=== PATIENT | male | born 1940 | race Caucasian/White ===

== ENCOUNTER 2023-10-14 08:26 | Inpatient (IN) ==
--- NOTE | 2023-10-03 12:04 | PAT Medication Instructions ---
Medication Instructions Date of Service October 03, 2023 Home Medications Medication Instructions Recorded bacitracin 500 unit/gram topical 1 applic topical BID #14 grams 07/26/20 ointment allopurinol 100 mg tablet 100 mg PO BID #180 tabs 01/18/23 losartan 100 mg tablet 100 mg PO QAM #90 tabs 01/18/23 meloxicam 15 mg tablet 15 mg PO DAILY PRN pain #90 tabs 01/18/23 fluticasone 100 mcg-salmeterol 50 1 ea inhalation BID #180 ea 04/24/23 mcg/dose blistr powdr for inhalation (Advair Diskus) gabapentin 100 mg capsule 100 mg PO TID #90 caps 06/17/23 amlodipine 5 mg tablet 5 mg PO DAILY #30 tabs 09/19/23 clopidogrel 75 mg tablet 75 mg PO DAILY #30 tabs 09/19/23 rosuvastatin 5 mg tablet 5 mg PO DAILY #30 tabs 09/19/23 aspirin 81 mg tablet,delayed release (Adult Aspirin Regimen) 81 mg PO QAM epinephrine 0.3 mg/0.3 mL injection, auto-injector 0.3 mg IM Q10M PRN albuterol sulfate 90 mcg/actuation aerosol inhaler 1 - 2 inh inhalation UD PRN vit C 250 mg-vit E 90 mg-zinc 40 mg-copper 1 [id number]-zkxbkn capsule (PreserVision AREDS-2) 2 tab PO QAM bacitracin 500 unit/gram topical ointment 1 applic topical BID allopurinol 100 mg tablet 100 mg PO BID losartan 100 mg tablet 100 mg PO QAM meloxicam 15 mg tablet 15 mg PO DAILY PRN fluticasone 100 mcg-salmeterol 50 mcg/dose blistr powdr for inhalation (Advair Diskus) 1 ea inhalation BID gabapentin 100 mg capsule 100 mg PO TID amlodipine 5 mg tablet 5 mg PO DAILY clopidogrel 75 mg tablet 75 mg PO DAILY rosuvastatin 5 mg tablet 5 mg PO DAILY Continue as directed rosuvastatin 5 mg tablet 5 mg PO DAILY amlodipine 5 mg tablet 5 mg PO DAILY epinephrine 0.3 mg/0.3 mL injection, auto-injector 0.3 mg IM Q10M PRN(if needed) albuterol sulfate 90 mcg/actuation aerosol inhaler 1 - 2 inh inhalation UD PRN (use if needed; please bring with you to hospital day of surgery if possible) ASK your surgeon for instructions meloxicam 15 mg tablet 15 mg PO DAILY PRN ASK your prescriber and surgeon aspirin 81 mg tablet,delayed release (Adult Aspirin Regimen) 81 mg PO QAM clopidogrel 75 mg tablet 75 mg PO DAILY STOP taking 2 weeks before surgery (or as soon as possible if surgery is within 2 weeks) vit C 250 mg-vit E 90 mg-zinc 40 mg-copper 1 [id number]-[id number] capsule (PreserVision AREDS-2) 2 tab PO QAM STOP taking 24 hours before surgery bacitracin 500 unit/gram topical ointment 1 applic topical BID DO NOT take the morning of surgery losartan 100 mg tablet 100 mg PO QAM Take morning of surgery With a small sip of water, OTHERWISE NOTHING TO EAT OR DRINK AFTER MIDNIGHT: allopurinol 100 mg tablet 100 mg PO BID fluticasone 100 mcg-salmeterol 50 mcg/dose blistr powdr for inhalation (Advair Diskus) 1 ea inhalation BID gabapentin 100 mg capsule 100 mg PO TID Take evening before surgery allopurinol 100 mg tablet 100 mg PO BID fluticasone 100 mcg-salmeterol 50 mcg/dose blistr powdr for inhalation (Advair Diskus) 1 ea inhalation BID gabapentin 100 mg capsule 100 mg PO TID Other Notes If you have any questions please call us at [phone] or [phone] or [phone] or [phone]
--- NOTE | 2023-10-09 11:54 | Anesthesiology Consultation ---
Date of Service October 09, 2023 Assessment & Plan (1) Encounter for pre-operative examination: Creatinine bump from 1.3, case discussed with Dr. Medeiros who advised patient is acceptable to proceed, to anesthesiologist discretion am DOS if additional testing is needed. Chart Review Chart Review: Acceptable Risk for Surgery and Patient seen in Pre Admission Testing Teaching & Discussion Pre-Anesthesia Teaching/Discussion Notes: Instructed NPO after midnight before surgery, except medications with 15 cc of water. Medication instructions provided according to the PAT guidelines. History Surgery Operation Date: 10/14/23 10:20 Proposed Procedures p Right Transcarotid Artery Revascularization - Neeraj Kinney MD Height/Weight Height: 5 ft 9 in Weight: 77.4 kg Allergies Allergy/AdvReac Type Severity Reaction Status Date / Time venom-honey bee Allergy Severe passed out Verified 10/14/23 08:50 No Known Drug Allergies Allergy Verified 10/14/23 08:50 Medications Home Medications Medication Instructions Recorded Confirmed Last Taken aspirin 81 mg tablet,delayed 81 mg PO QAM 06/11/19 10/14/23 10/13/23 08:00 release (Adult Aspirin Regimen) epinephrine 0.3 mg/0.3 mL 0.3 mg IM Q10M PRN BEE STINGS 06/11/19 10/14/23 Unknown injection, auto-injector albuterol sulfate 90 mcg/actuation 1 - 2 inh inhalation UD PRN ASTHMA 07/19/20 10/14/23 08/30/20 aerosol inhaler vit C 250 mg-vit E 90 mg-zinc 40 2 tab PO QAM 07/19/20 10/14/23 09/30/23 mg-copper 1 [id number]-gawllz capsule (PreserVision AREDS-2) allopurinol 100 mg tablet 100 mg PO BID #180 tabs 01/18/23 10/14/23 10/14/23 06:30 losartan 100 mg tablet 100 mg PO QAM #90 tabs 01/18/23 10/14/23 10/13/23 08:00 meloxicam 15 mg tablet 15 mg PO DAILY PRN pain #90 tabs 01/18/23 10/14/23 10/13/23 08:00 fluticasone 100 mcg-salmeterol 50 1 ea inhalation BID #180 ea 04/24/23 10/14/23 Unknown mcg/dose blistr powdr for inhalation (Advair Diskus) gabapentin 100 mg capsule 100 mg PO TID #90 caps 06/17/23 10/14/23 10/14/23 06:30 amlodipine 5 mg tablet 5 mg PO DAILY #30 tabs 09/19/23 10/14/23 10/13/23 08:00 clopidogrel 75 mg tablet 75 mg PO DAILY #30 tabs 09/19/23 10/14/23 10/13/23 08:00 rosuvastatin 5 mg tablet 5 mg PO DAILY #30 tabs 09/19/23 10/14/23 10/13/23 08:00 Active Medications Generic Name Dose Route Start Last Admin Trade Name Freq PRN Reason Stop Dose Admin Sodium Chloride 1,000 mls @ 50 mls/hr 10/14/23 06:00 10/14/23 08:49 Nss IV 10/15/23 01:59 50 mls/hr .Q20H VANGIE Administration Past Medical History Medical History Arthritis of knee, 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 Patient denies h/o seizures, heart attack, heart failure, DM, blood clots/DVTs or blood transfusions. Exercise / Class Metabolic Activity II 4-5 Yardwork/Stairs/Walk up hill (denies chest discomfort or shortness of breath with 1 FOS) Past Family History Family History Sister Diabetes Breast cancer Lung cancer Father Coronary heart disease Alcohol abuse Stroke Mother Alcohol abuse Denies family history of Ovarian cancer Prostate cancer Myocardial infarction Colorectal cancer Past Surgical History Surgical History S/P epidural steroid injection History of bilateral cataract extraction History of colonoscopy History of appendectomy Past Anesthesia History No Hx of Anesthesia Complications and Other (sister with Versed reaction during cataract procedure: nausea, dizziness, gait instability, generalized weakness (patient contacted his sister during PAT appointment for this information)) History of PONV No Hx of PONV and No Hx of Motion Sickness Social History Smoking Status: Former smoker Do You Dip or Chew Tobacco: No Smoking End Date: quit 1966 Hx Alcohol Use: Yes Alcohol type: beer alcohol intake frequency: a few times a month Hx Substance Use: No substance use type: does not use Review of Systems Snoring, denies witnessed apneas. Patient denies chest pain, shortness of breath, dyspnea on exertion, reflux, fever, chills, cough, wheezing, or palpitations. Physical Exam Vital Signs Last Vital Signs Temp 36.7 C 10/14/23 08:45 Pulse 80 10/14/23 08:45 Resp 18 10/14/23 08:45 BP 174/78 H 10/14/23 08:45 Pulse Ox 97 10/14/23 08:45 O2 Del Method Room Air 10/14/23 08:45 Vitals BP 136/77 P 57 TEMP 97.7 SP02 96% on RA RESP 18 Physical Patient resting comfortably in chair in no acute distress, alert and oriented, responding appropriately throughout visit Full cervical extension range of motion without pain TMD < 3 finger breadths Mallampati Score 2 Dentition: one crown, denies chipped or loose teeth, caps, implants or bridges Lungs: normal respiratory effort. Good air movement, clear throughout to auscultation, no adventitious breath sounds Cardiac: regular rate and rhythm, no murmurs noted Carotid arteries: negative bruit bilat Lab Results Anesthesia Preop Results Results Anesthesia Widget: 2 WBC 9.80 K/ul (4.8-10.8) 10/09/23 Hgb 11.4 g/dl (14.0-18.0) L 10/09/23 Hct 33.6 % (42.0-52.0) L 10/09/23 Plt 271 K/uL (130-400) 10/09/23 Na 139 mmol/L (136-145) 10/14/23 K 4.4 mmol/L (3.5-5.1) 10/14/23 Cl 111 mmol/L (98-107) H 10/14/23 CO2 22 mmol/L (21-32) 10/14/23 BUN 31 mg/dl (6-23) H 10/14/23 Creat 1.44 mg/dl (0.6-1.4) H 10/14/23 Glucose Level 110 mg/dl (70-99(Fasting)) H 10/14/23 PT 10.6 Seconds (9.0-12.0) 10/09/23 PTT 33 Seconds (21-31) H 10/09/23 INR 1.0 (0.9-1.1) 10/09/23 HA1c 6.2 % (4.5-5.6) H 09/24/23 Blood Type O Positive 10/14/23 Antibody Screen NEGATIVE 10/14/23 Testing Laboratory Results 10/14/23 08:59 Blood Type O Positive 10/14/23 08:59 Antibody Screen NEGATIVE 10/14/23 08:59 Electrocardiogram Date: 08/26/23 Sinus rhythm with 1st degree AV block, rate 68 bpm Chest X-Ray Date: 08/26/23 No acute chest disease. Other Testing MRI brain 10/02/23 Numerous foci of increased signal intensity are seen in the white matter in the cerebral hemispheres on the FLAIR images along with a small focus of increased signal intensity peripherally in the right basal ganglia probably due to chronic small vessel ischemia. A small area of increased signal intensity is seen peripherally in the right occipital lobe posteriorly on the FLAIR images probably due to a small area of chronic cortical infarction. A 5 mm focus of increased signal intensity is seen in the right basal ganglia on the T1 weighted images which dos not appear to represent calcification based on an outside CT angiogram. Diabetic striatopathy could have this appearance however this tends to be more extensive. A follow-up examination might provide additional information. Ventricular system and cortical sulci are prominent consistent with moderate atrophy No acute intracranial pathology is demonstrated Head and neck CTA 09/20/23 No evidence for occlusion or dissection within the bilateral carotid or vertebral arteries. Approximately 70% stenosis within the proximal left internal carotid artery and 80% stenosis within the proximal right internal carotid artery due to the atherosclerotic plaque. No acute intracranial findings. No central vessel occlusion. No intracranial aneurysm. Mild multifocal stenoses within the intracranial vessels. Right maxillary sinus mucosal thickening with secretions.
[~2023-10-14 08:26] MED LIST: ATROPINE SULFATE 0.1 MG/ML 10ML SYR IV PRN; DEXAMETHASONE SOD INJ 4 MG/ML VIAL ONE; HYDROmorphone INJ 1 MG/ML SYRINGE IV PRN; LIDOCAINE 2% 2 ML VIAL/AMP(20MG/ML) INFIL ONE; ONDANSETRON INJ 2 MG/ML 2 ML VIAL IV PRN; ONDANSETRON INJ 2 MG/ML 2 ML VIAL ONE; PROPOFOL IV EMULSION 10 MG/ML 20 ML VIAL IV ONE; ePHEDrine sulfate 50 MG/ML AMP IV PRN; fentaNYL citrate PF 100 MCG/2 ML VIAL IV PRN; fentaNYL citrate PF 100 MCG/2 ML VIAL ONE
[2023-10-14] MEDS: SODIUM CHLORIDE 0.9% 1,000 ML IV SCH (08:49)
--- NOTE | 2023-10-14 09:24 | History & Physical Report ---
Date of Service October 14, 2023 History of Present Illness Primary Care Provider: Jayson Valenzuela MD Name: JASE CORDOVA Patient Number: [id number] : 1940 Date of Service: 10/01/2023 Chief Complaint: _Appointment to discuss carotid stenosis HPI: _Mr. Cordova is an elderly male who presents to Dr. Kinney vascular surgery clinic today for an appointment to discuss recent findings of bilateral carotid stenosis. Patient states that he developed right eye symptoms at the end of August, a few days prior to his scheduled back surgery. He states that he was at home doing his normal activities, and a black curtain came down over the top half of his vision, lasting about 30 minutes before it resolved completely. He has not had similar symptoms prior to or since that time. He has had no other associated symptoms or problems, including unilateral extremity weakness numbness or tingling, difficulty speaking or swallowing, facial droop, sudden onset confusion, headache or syncope. He advised his family doctor of the symptoms, who sent him for a carotid ultrasound, and then sent him for a CTA of the neck. In the meantime his spinal surgery was canceled due to his symptoms. He presents today to discuss surgical options. He denies chest pain, shortness of breath, Kyler pain, nausea, vomiting, rest pain, claudication, nonhealing wounds or ulcers, other complaints. Review of the CTA of the neck performed at [facility] a few weeks ago demonstrates over 80% stenosis of his right ICA, and about 70 presents stenosis of his left ICA. Current Home Meds: (Last Updated 09/30 16:25) EPINEPHrine (EpiPen 2-Albino 0.3 mg injectable kit) 0.3 mg IM ONCE PRN: as needed for anaphylaxis albuterol (albuterol CFC free 90 mcg/inh MDI) 2 puff inhaled qid PRN: as needed for wheezing allopurinol 100 mg PO bid cholecalciferol (Vitamin D3) 25 mcg PO Daily clopidogrel (clopidogrel 75 mg oral tablet) 75 mg PO Daily gabapentin (gabapentin 100 mg oral capsule) TAKE ONE CAPSULE BY MOUTH THREE TIMES A DAY losartan 100 mg PO Daily rosuvastatin (rosuvastatin 5 mg oral tablet) TAKE ONE TABLET BY MOUTH EVERY DAY Allergies and Sensitivities: Bee stings(syncope) Bee stings(anaphylactic) Past Medical History: Problems: Bilateral carotid artery stenosis Peripheral arterial disease (atherosclerosis) 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 No Orthostatic Data Available Height and Weight: Last Updated 02/13/23 09:44 Date BMI Wt(kg) Wt(lb) Method Ht(cm) (ft-in) Method 02/13/23 76.1 167 Standing Scale 09/28/21 79 174 Standing Scale Heights and Weights are the last 3 documented. Physical Exam Constitutional: In general patient is a healthy appearing for age well-nourished well-developed elderly male no distress. He is alert and oriented without any focal deficits. His head is normocephalic and atraumatic. His trachea is midline. His carotids do not demonstrate a bruit. His heart is regular, his lungs are decreased but clear. His abdomen is soft nontender with active bowel sounds in all 4 quadrants. Brachial and radial pulses are +2, femoral pulses are +2, lower extremities the pulses are +1. He has brisk capillary refill and no sign of distal ischemia. ASSESSMENT: _ PLAN: _ 1 ) _symptomatic right ICA stenosis Patient does have bilateral carotid stenosis, however, his right eye amaurosis symptoms are likely related to his right ICA stenosis. Due to his symptoms, we recommend that he undergo surgical intervention. After review of his CTA, the options of carotid endarterectomy versus transcarotid artery revascularization were both discussed with the patient, including risks, benefits, alternatives, and description of the procedure. Patient elects to proceed with a right TCAR procedure. The procedure risks benefits and alternatives were discussed at further length with the patient by myself at Dr. Kinney's request. He expresses understanding and agreement to proceed. This will be scheduled in the next few weeks at the patient's convenience. He had been started on Plavix by his primary care physician, and has been on rosuvastatin as well. We will add 81 mg aspirin to this regimen for the required DAPT in order for him to undergo his TCAR. He will have platelet function testing, and we will send him for an echocardiogram. He is advised to call any other questions or concerns. He is agreeable to this plan. Thank you for letting us participate in the care of this patient. I have personally spent_39__ minutes performing [id number] and cot-eefa-mu-face activities on this date of service.Time does not include separately reported services. Activities Include: _x_ review of the medical record _x_ obtaining a history x__ physical exam/evaluation x__ review labs x__ review radiology reports _x_ counseling/educating patient/family/caregiver __ discussion/referral to other healthcare professional x__ documenting care in the medical record __ independent interpretation of results x__ communication of results to patient/family/caregiver _x_ coordination of care Signature Line Electronic Signature on File CC: Jayson Valenzuela MD [facility] [address] [address] * CC: Kassandra Simpson PA-C [facility] [address] [facility] [address] * Electronically Reviewed/Signed by: Concepción Harman PA-C Author Signature Dt/Tm:10/03/2023 10:45 AM [facility] [place] [address], [address] [place] [address] LM Result Type: HVI Outpt Note Date of Service: October 03, 2023 10:39 EDT Authorization Status: Final Author or Import Date: EVERETT Harman Lynn on October 03, 2023 10:45 EDT Verified By: EVERETT Harman Lynn on October 03, 2023 10:45 EDT Encounter info: [id number], [place] [id number], Clinic, 10/01/2023 - 10/01/2023 Allergies Allergy/AdvReac Type Severity Reaction Status Date / Time venom-honey bee Allergy Severe passed out Verified 10/14/23 08:50 No Known Drug Allergies Allergy Verified 10/14/23 08:50 Home Medications Medication Instructions Recorded Confirmed Type aspirin 81 mg tablet,delayed 81 mg PO QAM 06/11/19 10/14/23 History release (Adult Aspirin Regimen) epinephrine 0.3 mg/0.3 mL 0.3 mg IM Q10M PRN BEE STINGS 06/11/19 10/14/23 History injection, auto-injector albuterol sulfate 90 mcg/actuation 1 - 2 inh inhalation UD PRN ASTHMA 07/19/20 10/14/23 History aerosol inhaler vit C 250 mg-vit E 90 mg-zinc 40 2 tab PO QAM 07/19/20 10/14/23 History mg-copper 1 gs-eglduu-eytxuq capsule (PreserVision AREDS-2) allopurinol 100 mg tablet 100 mg PO BID #180 tabs 01/18/23 10/14/23 Rx losartan 100 mg tablet 100 mg PO QAM #90 tabs 01/18/23 10/14/23 Rx meloxicam 15 mg tablet 15 mg PO DAILY PRN pain #90 tabs 01/18/23 10/14/23 Rx fluticasone 100 mcg-salmeterol 50 1 ea inhalation BID #180 ea 04/24/23 10/14/23 Rx mcg/dose blistr powdr for inhalation (Advair Diskus) gabapentin 100 mg capsule 100 mg PO TID #90 caps 06/17/23 10/14/23 Rx amlodipine 5 mg tablet 5 mg PO DAILY #30 tabs 09/19/23 10/14/23 Rx clopidogrel 75 mg tablet 75 mg PO DAILY #30 tabs 09/19/23 10/14/23 Rx rosuvastatin 5 mg tablet 5 mg PO DAILY #30 tabs 09/19/23 10/14/23 Rx Past Med/Surg History Medical History Arthritis of knee, 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 Surgical History S/P epidural steroid injection History of bilateral cataract extraction History of colonoscopy History of appendectomy Family History Sister Diabetes Breast cancer Lung cancer Father Coronary heart disease Alcohol abuse Stroke Mother Alcohol abuse Denies family history of Ovarian cancer Prostate cancer Myocardial infarction Colorectal cancer Social History Smoking Status: Former smoker Tobacco Type: Cigarettes Age Started Using Tobacco: 18; Age Quit Using Tobacco: 25; packs per day: 1; Smoking End Date: quit 1966; Second Hand Exposure: No; Do You Dip or Chew Tobacco: No; Tobacco Cessation Education Requested by Patient: No Hx Alcohol Use: Yes Alcohol type: beer Hx Substance Use: No Preferred Language: Bermudian Communication Ability: Effective Medical Records Coordinator Required: No Beliefs That Will Affect Care: None marital status: Current Living Situation: Family Current Living Situation Comment: [facility] current occupational status: retired Other Information That Helps Us Care for You: No Feels Safe at Home: Yes Safety Concerns: Feels Safe At This Time Childhood Exposure to Second-Hand Smoke: Yes caffeine: Yes (soda) Dental Care, Regularly: Yes Physical Activity Frequency: Does not Exercise Seatbelt Use: always Sunscreen Use: No Assistive Devices: Glasses Review of Systems All systems reviewed & are unremarkable except as noted in HPI & below Results & Data Vital Signs (Past 12 Hours) Vital Signs Temp Pulse Resp BP BP Pulse Ox O2 Del Method 10/14/23 08:45 36.7 C 80 18 150/99 H 174/78 H 97 Room Air
--- NOTE | 2023-10-14 09:26 | History & Physical Bridge Note ---
Date of Service October 14, 2023 History & Physical Bridge Note I have examined the patient, reviewed the History & Physical and in the interval since the performance of the History & Physical I have noted the following changes of clinical significance: no changes noted
[2023-10-14 09:29] LABS: BUN Creatinine Ratio 21.5 (10-20); Calcium 8.8 mg/dl (8.6-10.3); Creatinine Clr Calc Pharmacy 38.2 ml/min; Est GFR (African American) 51.3 ml/min; Est GFR (Non-African American) 44.3 ml/min; Potassium 4.4 mmol/L (3.5-5.1)
[2023-10-14] MEDS: ROSUVASTATIN CALCIUM 5 MG TAB PO ONE (09:30)
[2023-10-14] MEDS: CLOPIDOGREL BISULFATE 75 MG TAB PO ONE (09:30)
[2023-10-14] MEDS: amLODIPine BESYLATE 5 MG TAB PO ONE (09:30)
[2023-10-14] MEDS: ASPIRIN 81 MG ECTAB PO ONE (09:30)
[2023-10-14] MEDS: CEFAZOLIN 2,000 MG/15 ML SYR IV SCH (10:50)
[2023-10-14] MEDS ORDERED: HEPARIN SOD (PORCINE) 1000 UNIT/ML ONE (11:17)
[2023-10-14] MEDS ORDERED: PHENYLEPHRINE 100MCG/ML 10ML SYR IV ONE (11:17)
[2023-10-14] MEDS ORDERED: ROCURONIUM BROMIDE 10 MG/ML 5 ML VIAL IV ONE (11:17)
[2023-10-14] MEDS ORDERED: PHENYLEPHRINE HCL 25 MG/250 ML NSS IV ONE (11:17)
[2023-10-14] MEDS ORDERED: GLYCOPYRROLATE 0.2 MG/ML VIAL ONE (11:29)
[2023-10-14] MEDS ORDERED: SUGAMMADEX SODIUM 200 MG/2 ML VIAL IV ONE (11:30)
[2023-10-14] MEDS: LIDOCAINE 1% LOCAL 20 ML VIAL ONE (11:42)
[2023-10-14] MEDS: GELATIN SPONGE SZ 100 ONE (11:42)
[2023-10-14] MEDS: THROMBIN FOR SOLN 20000 UNIT KIT ONE (11:42)
[2023-10-14] MEDS ORDERED: PROTAMINE SULFATE 10 MG/ML 5 ML VIAL IV ONE (11:52)
[2023-10-14] MEDS: VISIPAQUE IV ONE (11:56)
--- NOTE | 2023-10-14 12:05 | Post Operative Brief Note ---
Immediate Post Op Note v1 Date of Surgery October 14, 2023 Pre & Post Diagnosis Operation Date: 10/14/23 10:20 Pre-Op Diagnosis: Right Carotid Artery Stenosis Post-Op Diagnosis: Right Carotid Artery Stenosis I identified the patient and participated in the time-out.: Yes Procedure Operation Date: 10/14/23 10:20 Actual Procedures p Right Transcarotid Artery Revascularization, ultrasound localization of right common femoral vein (Right) - Neeraj Kinney MD Surgeon Neeraj Kinney MD Log Marker MD Tea MajanoMinarchkristian,PAC Estimated Blood Loss 20 Findings Consistent with Post-Op Diagnosis Anesthesia Type General Complications none Disposition Accompanied Patient To Recovery: No Disposition: Recovery Room
[2023-10-14] MEDS: BUPIVACAINE/EPINEPHRINE 0.5% MPF 1:200,000 30 ML VIAL ONE (12:06)
[2023-10-14] MEDS: ceFAZolin 330 MG/ML 1 GM VIAL ONE (12:07)
--- NOTE | 2023-10-14 12:12 | Operative Report ---
Post Operative Report Pre & Post Diagnosis Operation Date: 10/14/23 10:20 Pre-Op Diagnosis: Right Carotid Artery Stenosis Post-Op Diagnosis: Right Carotid Artery Stenosis I identified the patient and participated in the time-out.: Yes Procedure Operation Date: 10/14/23 10:20 Actual Procedures p Right Transcarotid Artery Revascularization, ultrasound, right common femoral vein (Right) - Neeraj Kinney MD Surgeon Neeraj Kinney MD Staff Development Coordinator Rn Ronald Navarro MD; Concepción Harman PA-C Estimated Blood Loss 20 Findings Consistent with Post-Op Diagnosis Severe stenosis of the right internal carotid artery that was resolved with stent placement. No dissection or flow limiting stenosis identified on completion angiogram Specimens None Anesthesia Type General Complications None Disposition Accompanied Patient To Recovery: No Indications 83 year old gentleman with symptoms of right sided amaurosis fugax and severe stenosis of the right internal carotid artery consistent with right sided severe symptomatic carotid artery stenosis Description of Procedure The patient was taken to the operating room and placed in supine position. After general anesthesia was accomplished the right-side of the neck and bilateral groin were prepped and draped in a sterile manner. A transverse 4cm incision was made on the right neck over the sternal and clavicular heads of the sternocleidomastoid muscle and below the omohyoid. Subcutaneous tissue and platysma were divided using electrocautery. Dissection using Metzenbaum scissors proceeded and the carotid sheath was identified medially. It was divided longitudinally. The internal jugular was retracted medially. The common carotid artery was identified with the Vagus nerve posterolateral. The common carotid artery was mobilized with Metzenbaum scissors and umbilical tape was placed around the artery. Once sufficient length, about 2cm of the common carotid were mobilized, a 5-0 Proline suture was used to place a U-Stitch in the anterior surface of the right common carotid artery. Attention was turned to the left common femoral vein. Access was attempted but no back bleeding was obtained. Attention was turned to the right common femoral vein which was then accessed under ultrasound guidance using a micropuncture needle. This was exchanged for the Venous Return Sheath over the provided 0.035'' wire. Blood was aspirated from the flow line followed by flushing of the venous sheath with heparinized saline. The sheath was sutured in place to the patient's skin. 7000U of heparin was then given to obtain an ACT > 250. A micropuncture needle was used to access the common carotid artery in the center of the U-stitch. The micropuncture wire was then advance 4cm into the common carotid artery and the micropuncture needle was removed. The micropuncture sheath was advanced 2-3cm into the common carotid artery and the wire and dilator were removed. A cerebral angiogram was taken. The micropuncture wire and dilator were re-inserted into the sheath and the external carotid artery was engaged with the wire without engaging the internal carotid artery. The sheath was advanced over the wire into the external carotid artery. Next a 0.035'' J guidewire was was inserted and advanced into the external carotid artery through the sheath. The micropuncture sheath was exchanged over the guidewire and the Transcarotid Arterial Sheath was advanced to the 2.5cm marker in correct coaxial orientation and the J wire and dilator were removed. The Sheath was sutured to the patient and then flushed with heparinized saline. No air bubbles visualized during flushing The flow controller was connected to the Transcarotid arterial sheath. Arterial blood was allowed to passively fill the device completely to which it was then connected to the Venous return sheath. The flow controller was set to high. The common carotid artery proximal to the access point was then clamped with an a ngled DeBakey and flow reversal was confirmed. A right carotid angiogram was then performed and the right internal carotid artery lesion was marked. HR and systolic blood pressures were adequate with HR of about 80 and blood pressure between 140 and 160 systolic. The lesion was then crossed using a 0.014'' guidewire. The lesion was then pre-dilated using a 5mm x 35mm balloon. This balloon was then exchanged and primary stenting was performed with the Transcarotid stent, appropriately sized (7-9mm, 40mm in length). Post dilation was performed with a 5.5x20mm balloon to 14 ATMs. Completion carotid angiography demonstrated patent stent with <50% residual stenosis Antegrade flow was restored following release of the common carotid artery clamp. The arterial sheath was removed and U-Stitch tied. The femoral venous sheath was removed and pressure held for 5 min with adequate hemostasis. Adequate hemostasis was seen of the carotid artery. The wound was inspected and adequate hemostasis was obtained. It was then closed with a running 3-0 Vicryl suture for the platysmal layer and a 4-0 subcuticular Vicryl suture for the skin edges. Dermabond was used for dressing. Patient awoke from anesthesia without difficulties. There was a small hematoma noted in the left groin, non- pulsatile. Was neurovascularly intact, moving all extremities and following commands at case completion. The patient left the operating room in satisfactory condition and tolerated the procedure well A total of 46mGy, 5.4 min of fluoroscopy time, and 20cc of contrast were used during the procedure. Dr. Kinney was present and scrubbed for the entire procedure. I attest to the content of the Intraoperative Record and any orders documented therein. Any exceptions are noted below. Supervising Physician Co-Signing Physician Notes Neeraj Kinney MD
[2023-10-14] MEDS: HEPARIN (PORCINE) 1000 UNIT/ML 10 ML (CATH LAB USE ONLY) ONE (12:13)
[2023-10-14] MEDS: PHENYLEPHRINE/NSS 25 MG/250 ML BAG IV PRN (13:03)
--- NOTE | 2023-10-14 14:41 | Anesthesiology Progress Note ---
Date of Service October 14, 2023 Anesthesia Post Procedure Vital Signs Vital Signs: Temp Pulse Pulse Resp BP BP BP 10/14/23 13:50 63 16 121/46 L 10/14/23 13:40 36.4 C L 61 16 119/44 L 10/14/23 13:30 61 16 111/41 L 10/14/23 13:20 62 16 109/44 L 10/14/23 13:10 70 16 118/44 L 10/14/23 13:00 65 18 114/40 L 10/14/23 12:50 74 16 105/40 L 10/14/23 12:40 72 16 102/42 L 10/14/23 12:30 74 16 102/40 L 10/14/23 12:23 36.2 C L 79 16 136/62 10/14/23 08:45 36.7 C 80 18 150/99 H 174/78 H Pulse Ox O2 Del Method O2 Flow Rate 10/14/23 13:50 96 Room Air 10/14/23 13:40 96 Room Air 10/14/23 13:30 96 Room Air 10/14/23 13:20 96 Room Air 10/14/23 13:10 96 Room Air 10/14/23 13:00 96 Room Air 10/14/23 12:50 96 Room Air 10/14/23 12:40 100 Oxymask 10/14/23 12:30 100 Oxymask 10/14/23 12:23 97 Oxymask 5 10/14/23 08:45 97 Room Air Transfer of Care Handoff Completed per policy Notes Mental Status: alert / awake / arousable and participated in evaluation Patient Amnestic to Procedure: Yes Nausea / Vomiting: adequately controlled Pain: adequately controlled Airway Patency, RR, SpO2: stable & adequate BP & HR: stable & adequate Hydration State: stable & adequate Anesthetic Complications: no major complications apparent and Pt Satisfied with anesthetic care Notes: Pt BP maintained on low dose phenylephrine ggt. Pt conversant and without complaint. Stable to be transferred to ICU.
[2023-10-14] MEDS ORDERED: oxyCODONE/ACETAMINOPHEN 5mg/325mg TAB PO PRN (14:48)
[2023-10-14] MEDS ORDERED: STAT IV Infusion **Titration per Protocol STA (14:48)
[2023-10-14] MEDS ORDERED: ALBUTEROL HFA 8 GM INHALER INH PRN (14:48)
[2023-10-14] MEDS ORDERED: MELOXICAM 7.5 MG TAB PO PRN (14:48)
[2023-10-14] MEDS ORDERED: EPINEPHrine ADULT AUTO-INJECT 0.3 MG SYR IM PRN (14:48)
--- NOTE | 2023-10-14 14:52 | Critical Care Consultation ---
Date of Consultation October 14, 2023 Assessment & Plan (1) Carotid artery stenosis: (2) Peripheral artery disease: (3) Hypertension: Plan Impression: 83-year-old male with symptomatic right internal carotid stenosis status post TCAR. He is on a small amount of Willian-Synephrine postoperatively. Recommendations: 1. Status post carotid revascularization: Management per vascular surgery. Continue neurochecks and follow his incisions. Antiplatelet agents per vascular surgery. 2. Hypotension: The patient has a history of hypertension in the outpatient setting and is on losartan and amlodipine. Will continue to follow and wean Willian-Synephrine as possible. 3. History of asthma: Not bronchospastic currently. Can continue inhalers on an as-needed basis. 4. Await postoperative laboratory studies. 5. The patient's remaining critical care issues have been well addressed by the vascular surgery service. Will continue to follow with you. Feel free to contact us with questions or concerns. History of Present Illness Attending Physician: Neeraj Kinney MD History of Present Illness Asked by vascular surgery to assist in evaluation management this patient post TCAR. History is obtained from review the electronic medical record as well as interview with the patient. The patient is an 83-year-old male who developed amaurosis back in August. CTA demonstrated an 80% stenosis of the right ICA and a 70% stenosis of the left ICA. He was seen in the vascular surgery clinic and felt to be an appropriate candidate for TCAR. He was taken to the OR today and underwent transcarotid artery revascularization. He tolerated the procedure well. In the PACU Willian- Synephrine was initiated and the patient was brought to the ICU. The patient is currently awake alert and conversant. He feels that his throat is a little bit sore and his voice is a little bit gravelly. He is not having any neurological symptoms. No vision changes. He denies chest pain or palpitations. His pain is adequately controlled. His medical history and review of systems is otherwise unchanged from his outpatient H&P note Allergies Allergy/AdvReac Type Severity Reaction Status Date / Time venom-honey bee Allergy Severe passed out Verified 10/14/23 08:50 No Known Drug Allergies Allergy Verified 10/14/23 08:50 Home Medications Medication Instructions Recorded Confirmed Type aspirin 81 mg tablet,delayed 81 mg PO QAM 06/11/19 10/14/23 History release (Adult Aspirin Regimen) epinephrine 0.3 mg/0.3 mL 0.3 mg IM Q10M PRN BEE STINGS 06/11/19 10/14/23 History injection, auto-injector albuterol sulfate 90 mcg/actuation 1 - 2 inh inhalation UD PRN ASTHMA 07/19/20 10/14/23 History aerosol inhaler vit C 250 mg-vit E 90 mg-zinc 40 2 tab PO QAM 07/19/20 10/14/23 History mg-copper 1 [id number] capsule (PreserVision AREDS-2) allopurinol 100 mg tablet 100 mg PO BID #180 tabs 01/18/23 10/14/23 Rx losartan 100 mg tablet 100 mg PO QAM #90 tabs 01/18/23 10/14/23 Rx meloxicam 15 mg tablet 15 mg PO DAILY PRN pain #90 tabs 01/18/23 10/14/23 Rx fluticasone 100 mcg-salmeterol 50 1 ea inhalation BID #180 ea 04/24/23 10/14/23 Rx mcg/dose blistr powdr for inhalation (Advair Diskus) gabapentin 100 mg capsule 100 mg PO TID #90 caps 06/17/23 10/14/23 Rx amlodipine 5 mg tablet 5 mg PO DAILY #30 tabs 09/19/23 10/14/23 Rx clopidogrel 75 mg tablet 75 mg PO DAILY #30 tabs 09/19/23 10/14/23 Rx rosuvastatin 5 mg tablet 5 mg PO DAILY #30 tabs 09/19/23 10/14/23 Rx Patient History Medical History Arthritis of knee, 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 Surgical History S/P epidural steroid injection History of bilateral cataract extraction History of colonoscopy History of appendectomy Family History Sister Diabetes Breast cancer Lung cancer Father Coronary heart disease Alcohol abuse Stroke Mother Alcohol abuse Denies family history of Ovarian cancer Prostate cancer Myocardial infarction Colorectal cancer Social History Smoking Status: Former smoker Tobacco Type: Cigarettes Age Started Using Tobacco: 18; Age Quit Using Tobacco: 25; packs per day: 1; Smoking End Date: quit 1966; Second Hand Exposure: No; Do You Dip or Chew Tobacco: No; Tobacco Cessation Education Requested by Patient: No Hx Alcohol Use: Yes Alcohol type: beer Hx Substance Use: No Preferred Language: [place] Communication Ability: Effective Hand Potter Required: No Beliefs That Will Affect Care: None marital status: Current Living Situation: Family Current Living Situation Comment: [facility] current occupational status: retired Other Information That Helps Us Care for You: No Feels Safe at Home: Yes Safety Concerns: Feels Safe At This Time Childhood Exposure to Second-Hand Smoke: Yes caffeine: Yes (soda) Dental Care, Regularly: Yes Physical Activity Frequency: Does not Exercise Seatbelt Use: always Sunscreen Use: No Assistive Devices: Glasses Review of Systems Review of Systems: All systems reviewed & are unremarkable except as noted in Subjective Physical Exam Constitutional: WD/WN, vitals as above Neck: trachea midline, no thyromegaly Respiratory: normal respiratory effort, lungs clear to auscultation Cardiovascular: RRR, no murmur, no edema Gastrointestinal (Abdomen): normal bowel sounds, soft, nontender, no hepatosplenomegaly Musculoskeletal: Extremities: extremities normal to inspection Skin: no rashes, warm and dry Neurologic: Nonfocal exam Lymphatic: no cervical lymphadenopathy Results & Data Results & Data Vital Signs (Past 12 Hours) Vital Signs Temp Pulse Pulse Resp BP BP BP 10/14/23 13:50 63 16 121/46 L 10/14/23 13:40 36.4 C L 61 16 119/44 L 10/14/23 13:30 61 16 111/41 L 10/14/23 13:20 62 16 109/44 L 10/14/23 13:10 70 16 118/44 L 10/14/23 13:00 65 18 114/40 L 10/14/23 12:50 74 16 105/40 L 10/14/23 12:40 72 16 102/42 L 10/14/23 12:30 74 16 102/40 L 10/14/23 12:23 36.2 C L 79 16 136/62 10/14/23 08:45 36.7 C 80 18 150/99 H 174/78 H Pulse Ox O2 Del Method O2 Flow Rate 10/14/23 13:50 96 Room Air 10/14/23 13:40 96 Room Air 10/14/23 13:30 96 Room Air 10/14/23 13:20 96 Room Air 10/14/23 13:10 96 Room Air 10/14/23 13:00 96 Room Air 10/14/23 12:50 96 Room Air 10/14/23 12:40 100 Oxymask 10/14/23 12:30 100 Oxymask 10/14/23 12:23 97 Oxymask 5 10/14/23 08:45 97 Room Air Critical Care Results & Data Vital Signs (Past 12 Hours) Vital Signs Temp Pulse Pulse Resp BP BP BP 10/14/23 13:50 63 16 121/46 L 10/14/23 13:40 36.4 C L 61 16 119/44 L 10/14/23 13:30 61 16 111/41 L 10/14/23 13:20 62 16 109/44 L 10/14/23 13:10 70 16 118/44 L 10/14/23 13:00 65 18 114/40 L 10/14/23 12:50 74 16 105/40 L 10/14/23 12:40 72 16 102/42 L 10/14/23 12:30 74 16 102/40 L 10/14/23 12:23 36.2 C L 79 16 136/62 10/14/23 08:45 36.7 C 80 18 150/99 H 174/78 H Pulse Ox O2 Del Method O2 Flow Rate 10/14/23 13:50 96 Room Air 10/14/23 13:40 96 Room Air 10/14/23 13:30 96 Room Air 10/14/23 13:20 96 Room Air 10/14/23 13:10 96 Room Air 10/14/23 13:00 96 Room Air 10/14/23 12:50 96 Room Air 10/14/23 12:40 100 Oxymask 10/14/23 12:30 100 Oxymask 10/14/23 12:23 97 Oxymask 5 10/14/23 08:45 97 Room Air Lab & Micro Results (Past 24 Hours) No Data to Display Na 139 mmol/L (136-145) 10/14/23 K 4.4 mmol/L (3.5-5.1) 10/14/23 Cl 111 mmol/L (98-107) H 10/14/23 CO2 22 mmol/L (21-32) 10/14/23 Anion Gap 6 (3-11) 10/14/23 BUN 31 mg/dl (6-23) H 10/14/23 Creatinine 1.44 mg/dl (0.6-1.4) H 10/14/23 Estimated GFR ( Amer) 51.3 ml/min 10/14/23 Estimated GFR (Non-Af Amer) 44.3 ml/min 10/14/23 BUN/Creatinine Ratio 21.5 (10-20) H 10/14/23 Glu 110 mg/dl (70-99(Fasting)) H 10/14/23 Ca 8.8 mg/dl (8.6-10.3) 10/14/23 Calcium Level 8.8 mg/dl (8.6-10.3) 10/14/23 08:59 I & O Totals 24 Hours 10/13/23 10/14/23 10/15/23 06:59 06:59 06:59 Intake Total 1105.458 / 1105.458 Output Total 20 / 20 Balance 1085.458 / 1085.458 Cumulative 10/03/23 09:40 thru 10/14/23 13:43 Intake Total 1105.458 Output Total 20 Balance 1085.458 RT Ventilator Mngmt (Last Documented) Ventilator Ordered Settings Respiratory Rate 16 10/14/23 13:50 Ventilator - PT Measurements Respiratory Rate 16 Coding Level of Care Code 85891 IN/OBS CONSULT LVL 3,45M Diagnoses Carotid artery stenosis I65.29 Peripheral artery disease I73.9 Hypertension I10
[2023-10-14] MEDS ORDERED: EPINEPHrine INJ 1 MG/ML AMP IM PRN (15:09)
[2023-10-14] MEDS: PHENYLEPHRINE/NSS 25 MG/250 ML BAG IV SCH (15:54)
[2023-10-14] MEDS: LACTATED RINGER'S 1,000 ML IV SCH (15:56)
[2023-10-14] MEDS: GABAPENTIN 100 MG CAP PO SCH (15:57)
[2023-10-14] MEDS: ceFAZolin 2000MG 2,000 MG/15 ML SYR IV SCH (17:51)
[2023-10-14] MEDS: allopurinoL 100 MG TAB PO SCH (21:18)
[2023-10-15] MEDS: amLODIPine BESYLATE 5 MG TAB PO SCH (08:17)
[2023-10-15] MEDS: LOSARTAN POTASSIUM 50 MG TAB PO SCH (08:17)
[2023-10-15] MEDS: ASPIRIN 81 MG ECTAB PO SCH (08:18)
[2023-10-15] MEDS: CEROVITE ADV FORMULA TAB PO SCH (08:19)
[2023-10-15] MEDS: CLOPIDOGREL BISULFATE 75 MG TAB PO SCH (08:19)
[2023-10-15] MEDS: ROSUVASTATIN CALCIUM 5 MG TAB PO SCH (08:20)
--- NOTE | 2023-10-15 08:37 | Critical Care Progress Note ---
Date of Service October 15, 2023 Assessment & Plan (1) Carotid artery stenosis: (2) Peripheral artery disease: (3) Hypertension: Plan Impression: 83-year-old male with symptomatic right internal carotid stenosis status post TCAR. He is doing well clinically but continues to require low-dose Willian-Synephrine. Recommendations: 1. Status post carotid revascularization: Management per vascular surgery. Continue neurochecks and follow his incisions. Antiplatelet agents per vascular surgery. 2. Hypotension: Wean Willian-Synephrine as tolerated. Holding antihypertensives for now. 3. History of asthma: Not bronchospastic currently. Can continue inhalers on an as-needed basis. 4. Mild renal insufficiency on labs which appears chronic in nature. No acute indication required. Electrolytes and acid-base status unremarkable. Disposition per vascular surgery. Can discontinue arterial line once off pressors. When off pressors, critical care services will sign off. Admission and Anticipated Discharge Date Admission Date: October 14, 2023 Subjective Patient seen and examined. EMR reviewed. Discussed with critical care nurse at the bedside. The patient is doing well clinically. He denies any chest pain or shortness of breath. No neurological symptoms. He had his Willian-Synephrine weaned significantly but remains on a low-dose this morning. He is tolerating a diet. No nausea or vomiting. No abdominal pain. No numbness or tingling. No vision changes Review of Systems Review of Systems: All systems reviewed & are unremarkable except as noted in Subjective Physical Exam Constitutional: WD/WN, vitals as above Neck: trachea midline, no thyromegaly Respiratory: normal respiratory effort, lungs clear to auscultation Cardiovascular: RRR, no murmur, no edema Gastrointestinal (Abdomen): normal bowel sounds, soft, nontender, no hepatosplenomegaly Musculoskeletal: Extremities: extremities normal to inspection Skin: no rashes, warm and dry Lymphatic: no cervical lymphadenopathy Results & Data Results & Data Vital Signs (Past 12 Hours) Vital Signs Temp Pulse Resp BP Pulse Ox O2 Del Method 10/15/23 07:49 62 120/46 L 10/15/23 07:01 56 L 13 139/55 L 95 Room Air 10/15/23 07:01 36.6 C 10/15/23 05:00 131/69 10/15/23 05:00 51 L 16 95 10/15/23 04:00 47 L 10 L 96 10/15/23 04:00 136/66 10/15/23 04:00 36.7 C 10/15/23 04:00 59 L 113/38 L 10/15/23 03:00 132/68 10/15/23 03:00 57 L 10 L 95 10/15/23 02:00 150/67 H 10/15/23 02:00 51 L 15 95 10/15/23 01:00 148/68 H 10/15/23 01:00 59 L 14 94 10/15/23 00:00 61 15 95 10/15/23 00:00 150/71 H 10/15/23 00:00 36.9 C 10/15/23 00:00 59 L 139/49 L 10/15/23 00:00 57 L 10/14/23 23:00 115/70 10/14/23 23:00 59 L 13 94 10/14/23 22:00 52 L 11 L 95 10/14/23 22:00 124/62 10/14/23 21:00 124/66 10/14/23 21:00 54 L 16 97 Critical Care Results & Data Vital Signs (Past 12 Hours) Vital Signs Temp Pulse Resp BP Pulse Ox O2 Del Method 10/15/23 07:49 62 120/46 L 10/15/23 07:01 56 L 13 139/55 L 95 Room Air 10/15/23 07:01 36.6 C 10/15/23 05:00 131/69 10/15/23 05:00 51 L 16 95 10/15/23 04:00 47 L 10 L 96 10/15/23 04:00 136/66 10/15/23 04:00 36.7 C 10/15/23 04:00 59 L 113/38 L 10/15/23 03:00 132/68 10/15/23 03:00 57 L 10 L 95 10/15/23 02:00 150/67 H 10/15/23 02:00 51 L 15 95 10/15/23 01:00 148/68 H 10/15/23 01:00 59 L 14 94 10/15/23 00:00 61 15 95 10/15/23 00:00 150/71 H 10/15/23 00:00 36.9 C 10/15/23 00:00 59 L 139/49 L 10/15/23 00:00 57 L 10/14/23 23:00 115/70 10/14/23 23:00 59 L 13 94 10/14/23 22:00 52 L 11 L 95 10/14/23 22:00 124/62 10/14/23 21:00 124/66 10/14/23 21:00 54 L 16 97 Lab & Micro Results (Past 24 Hours) No Data to Display Na 139 mmol/L (136-145) 10/14/23 K 4.4 mmol/L (3.5-5.1) 10/14/23 Cl 111 mmol/L (98-107) H 10/14/23 CO2 22 mmol/L (21-32) 10/14/23 Anion Gap 6 (3-11) 10/14/23 BUN 31 mg/dl (6-23) H 10/14/23 Creatinine 1.44 mg/dl (0.6-1.4) H 10/14/23 Estimated GFR ( Amer) 51.3 ml/min 10/14/23 Estimated GFR (Non-Af Amer) 44.3 ml/min 10/14/23 BUN/Creatinine Ratio 21.5 (10-20) H 10/14/23 Glu 110 mg/dl (70-99(Fasting)) H 10/14/23 Ca 8.8 mg/dl (8.6-10.3) 10/14/23 Calcium Level 8.8 mg/dl (8.6-10.3) 10/14/23 08:59 I & O Totals 24 Hours 10/14/23 10/15/23 10/16/23 06:59 06:59 06:59 Intake Total 2398.265 / 2398.265 14.855 / 14.855 Output Total 1045 / 1045 Balance 1353.265 / 1353.265 14.855 / 14.855 Cumulative 10/03/23 09:40 thru 10/15/23 08:14 Intake Total 2413.120 Output Total 1045 Balance 1368.120 RT Ventilator Mngmt (Last Documented) Ventilator Ordered Settings Respiratory Rate 13 10/15/23 07:01 Ventilator - PT Measurements Respiratory Rate 13 Coding Level of Care Code 40560 SUB INP/OBS CARE 2/35MIN Diagnoses Carotid artery stenosis I65.29 Peripheral artery disease I73.9 Hypertension I10
--- NOTE | 2023-10-15 09:31 | Surgery Progress Note ---
Date of Service October 15, 2023 Assessment & Plan (1) Stenosis of right internal carotid artery: Plan: Patient off his ally. BP doing well off ally. If remains stable will discharge today. Admission and Anticipated Discharge Date Admission Date: October 14, 2023 Subjective Patient has no complaints. Denies any focal deficits Physical Exam Constitutional: WD/WN, vitals as above Respiratory: normal respiratory effort; no respiratory distress Cardiovascular: Rate/Rhythm: regular rate and regular rhythm Skin: + incision (dry and clean) Neurologic: CN's II-XI intact bilaterally and moves all extremities Psychiatric: Orientation: alert and oriented x 3 Results & Data Vital Signs (Past 12 Hours) Vital Signs Temp Pulse Resp BP Pulse Ox O2 Del Method 10/15/23 08:54 82 19 107/52 L 95 Room Air 10/15/23 08:00 61 20 106/56 L 94 Room Air 10/15/23 07:49 62 120/46 L 10/15/23 07:01 56 L 13 139/55 L 95 Room Air 10/15/23 07:01 36.6 C 10/15/23 05:00 131/69 10/15/23 05:00 51 L 16 95 10/15/23 04:00 47 L 10 L 96 10/15/23 04:00 136/66 10/15/23 04:00 36.7 C 10/15/23 04:00 59 L 113/38 L 10/15/23 03:00 132/68 10/15/23 03:00 57 L 10 L 95 10/15/23 02:00 150/67 H 10/15/23 02:00 51 L 15 95 10/15/23 01:00 148/68 H 10/15/23 01:00 59 L 14 94 10/15/23 00:00 61 15 95 10/15/23 00:00 150/71 H 10/15/23 00:00 36.9 C 10/15/23 00:00 59 L 139/49 L 10/15/23 00:00 57 L 10/14/23 23:00 115/70 10/14/23 23:00 59 L 13 94 10/14/23 22:00 52 L 11 L 95 10/14/23 22:00 124/62
--- NOTE | 2023-10-16 11:15 | Coding Query ---
CODING QUERY To promote full compliance with coding requirements relating to patient care, provider participation is requested in all cases of hotel maid uncertainty. Please assist us with the question(s) below: Clinical Indicator(s): * Procedure: Right Transcarotid Artery Revascularization * ...primary stenting was performed with the Transcarotid stent, appropriately sized (7-9mm, 40mm in length). * Implant information: Triplify [id number] Coding Question(s): Based on your professional opinion and clinical findings above, can you clarify whether the Triplify stent is a: * Drug eluting stent * Non-drug eluting stent * Unable to determine Physician's Response(s): Thank you Ameena Mckinney non-drug eluting stent [facility] only has one stent fransisco GARRETT
--- NOTE | 2023-10-17 10:07 | Discharge Summary ---
Date of Service October 17, 2023 Admission HPI Per Admitting Provider Name: JASE MOSCOSO Patient Number: [id number] : 1940 Date of Service: 10/01/2023 Chief Complaint: _Appointment to discuss carotid stenosis HPI: _Mr. Moscoso is an elderly male who presents to Dr. Kinney vascular surgery clinic today for an appointment to discuss recent findings of bilateral carotid stenosis. Patient states that he developed right eye symptoms at the end of August, a few days prior to his scheduled back surgery. He states that he was at home doing his normal activities, and a black curtain came down over the top half of his vision, lasting about 30 minutes before it resolved completely. He has not had similar symptoms prior to or since that time. He has had no other associated symptoms or problems, including unilateral extremity weakness numbness or tingling, difficulty speaking or swallowing, facial droop, sudden onset confusion, headache or syncope. He advised his family doctor of the symptoms, who sent him for a carotid ultrasound, and then sent him for a CTA of the neck. In the meantime his spinal surgery was canceled due to his symptoms. He presents today to discuss surgical options. He denies chest pain, shortness of breath, Kyler pain, nausea, vomiting, rest pain, claudication, nonhealing wounds or ulcers, other complaints. Review of the CTA of the neck performed at [facility] a few weeks ago demonstrates over 80% stenosis of his right ICA, and about 70 presents stenosis of his left ICA. Current Home Meds: (Last Updated 09/30 16:25) EPINEPHrine (EpiPen 2-Albino 0.3 mg injectable kit) 0.3 mg IM ONCE PRN: as needed for anaphylaxis albuterol (albuterol CFC free 90 mcg/inh MDI) 2 puff inhaled qid PRN: as needed for wheezing allopurinol 100 mg PO bid cholecalciferol (Vitamin D3) 25 mcg PO Daily clopidogrel (clopidogrel 75 mg oral tablet) 75 mg PO Daily gabapentin (gabapentin 100 mg oral capsule) TAKE ONE CAPSULE BY MOUTH THREE TIMES A DAY losartan 100 mg PO Daily rosuvastatin (rosuvastatin 5 mg oral tablet) TAKE ONE TABLET BY MOUTH EVERY DAY Allergies and Sensitivities: Bee stings(syncope) Bee stings(anaphylactic) Past Medical History: Problems: Bilateral carotid artery stenosis Peripheral arterial disease (atherosclerosis) 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 No Orthostatic Data Available Height and Weight: Last Updated 02/13/23 09:44 Date BMI Wt(kg) Wt(lb) Method Ht(cm) (ft-in) Method 02/13/23 76.1 167 Standing Scale 09/28/21 79 174 Standing Scale Heights and Weights are the last 3 documented. Physical Exam Constitutional: In general patient is a healthy appearing for age well-nourished well-developed elderly male no distress. He is alert and oriented without any focal deficits. His head is normocephalic and atraumatic. His trachea is midline. His carotids do not demonstrate a bruit. His heart is regular, his lungs are decreased but clear. His abdomen is soft nontender with active bowel sounds in all 4 quadrants. Brachial and radial pulses are +2, femoral pulses are +2, lower extremities the pulses are +1. He has brisk capillary refill and no sign of distal ischemia. ASSESSMENT: _ PLAN: _ 1 ) _symptomatic right ICA stenosis Patient does have bilateral carotid stenosis, however, his right eye amaurosis symptoms are likely related to his right ICA stenosis. Due to his symptoms, we recommend that he undergo surgical intervention. After review of his CTA, the options of carotid endarterectomy versus transcarotid artery revascularization were both discussed with the patient, including risks, benefits, alternatives, and description of the procedure. Patient elects to proceed with a right TCAR procedure. The procedure risks benefits and alternatives were discussed at further length with the patient by myself at Dr. Kinney's request. He expresses understanding and agreement to proceed. This will be scheduled in the next few weeks at the patient's convenience. He had been started on Plavix by his primary care physician, and has been on rosuvastatin as well. We will add 81 mg aspirin to this regimen for the required DAPT in order for him to undergo his TCAR. He will have platelet function testing, and we will send him for an echocardiogram. He is advised to call any other questions or concerns. He is agreeable to this plan. Thank you for letting us participate in the care of this patient. I have personally spent_39__ minutes performing yqwy-al-deea and gfw-kbnv-ch-face activities on this date of service.Time does not include separately reported services. Activities Include: _x_ review of the medical record _x_ obtaining a history x__ physical exam/evaluation x__ review labs x__ review radiology reports _x_ counseling/educating patient/family/caregiver __ discussion/referral to other healthcare professional x__ documenting care in the medical record __ independent interpretation of results x__ communication of results to patient/family/caregiver _x_ coordination of care Signature Line Electronic Signature on File CC: Jayson Valenzuela MD [facility] [address] [address] * CC: [facility] [address] [facility] [address] * Electronically Reviewed/Signed by: Concepción Harman PA-C Author Signature Dt/Tm:10/03/2023 10:45 AM [facility] [address], [address] [place] [address] Result Type: HVI Outpt Note Date of Service: October 03, 2023 10:39 EDT Authorization Status: Final Author or Import Date: EVERETT Harman Lynn on October 03, 2023 10:45 EDT Verified By: EVERETT Harman Lynn on October 03, 2023 10:45 EDT Encounter info: [id number], [place] [address], Clinic, 10/01/2023 - 10/01/2023 Admission Exam Per Admitting Provider Constitutional: In general patient is a healthy appearing for age well-nourished well-developed elderly male no distress. He is alert and oriented without any focal deficits. His head is normocephalic and atraumatic. His trachea is midline. His carotids do not demonstrate a bruit. His heart is regular, his lungs are decreased but clear. His abdomen is soft nontender with active bowel sounds in all 4 quadrants. Brachial and radial pulses are +2, femoral pulses are +2, lower extremities the pulses are +1. He has brisk capillary refill and no sign of distal ischemia. Principal Diagnosis 1. s/p R TCAR 2. R ICA stenosis Discharge Exam Constitutional WD/WN, vitals as above Respiratory normal respiratory effort; no respiratory distress Cardiovascular Rate/Rhythm: regular rate and regular rhythm Skin + incision (dry and clean) Neurologic CN's II-XI intact bilaterally and moves all extremities Psychiatric Orientation: alert and oriented x 3 Discharge Data Allergies Allergy/AdvReac Type Severity Reaction Status Date / Time venom-honey bee Allergy Severe passed out Verified 10/17/23 08:59 No Known Drug Allergies Allergy Verified 10/17/23 08:59 Bee sting Allergy Severe Uncoded 10/17/23 08:59 Consultations 10/14/23 14:48 Consult Physical Sciences Instructor Routine Procedures Performed Operation Date: 10/14/23 10:20 Actual Procedures p Right Transcarotid Artery Revascularization, ultrasound, right common femoral vein (Right) - Neeraj Kinney MD Ordered Studies 10/14/23 07:39 EV angio carotid cereb RT Routine US EV guide vascular access Routine Hospital Course (1) Stenosis of right internal carotid artery: Patient off his ally. BP doing well off ally. D/C home today Total Time Total Time Spent Total Time Spent (In Minutes): 0 Discharge Plan Discharge Items Patient Disposition: Home - Self-Care Reason For Visit: Right Carotid Artery Stenosis Discharge Diagnosis: right carotid stenosis Activity: Per Instructions section Non-emergency contact: Surgeon Call non-emergency contact if: your temperature is above 101.5, your wound has increased redness, your wound has increased drainage and your wound pain has increased Follow-up/Referrals: Joby Hendrxi PA-C [Physician Water Manager] - 10/17/23 9:15 am (Dr. Valenzuela did not have any appointments so I scheduled an appointment with his PA. ) Diet: Heart Healthy Addtl Attending Provider Instructions: SPECIAL CARE INSTRUCTIONS: Medications: * Continue to take Aspirin and plavix as directed. Incision Care: * You may shower, but do not rub incision. You may let the warm soapy water run over it. Be sure to dry the incision well after bathing. * Do not shave directly over the incision until it is healed. * DO NOT IMMERSE THE INCISION IN A TUB/POOL/etc. UNTIL HEALED. Restrictions: * Do not drive for at least one week or if you are still taking any narcotic pain medication. * Do not lift anything heavier than a gallon of milk for one week after going home. Possible Complications: * Numbness - It is normal to have some numbness around the incision. Numbness can extend beyond the incision to areas of the neck, ear and face. The numbness is due to bruising of nerves during the surgery and will gradually improve over a period of months. * Hoarseness/Difficulty Speaking and Swallowing - The bruising of nerves in the neck can also cause a hoarse voice, difficulty speaking or swallowing. This may improve over time, HOWEVER, if it continues for more than a few days please contact our office ([phone]). * Excessive Swelling - There will be some swelling immediately after surgery which usually resolves within one week. If you notice that the swelling is getting worse, notify your surgeon ([phone]). * Drainage/Bleeding - If there is any drainage or bleeding, it should be a very small amount (less than a teaspoon per day). If you have excessive bleeding or drainage from the incision, call your surgeon ([phone]) right away. ACTIVATION OF EMERGENCY MEDICAL SYSTEM: Call 911, immediately, if you experience any of the following: Warning Signs and Symptoms of Stroke: * Sudden numbness or weakness of the face, arm or leg, especially on one side of the body * Sudden confusion, trouble speaking or understanding * Sudden trouble seeing in one or both eyes * Sudden trouble walking, dizziness, loss of balance or coordination * Sudden severe headache with no cause Do not delay calling 911 if you experience any warning signs or symptoms of a stroke. Delay in seeking medical attention may affect what treatments can be given to you. Risk Factors for Stroke: You can reduce your chances of stroke by working with your medical provider to adopt a healthy lifestyle. Some specific ways to lower your chance of stroke are: * If you are a smoker, now is the time to stop smoking cigarettes * If you are diabetic, improve the control of your blood sugars * Avoid excessive amounts of alcohol * Control high blood pressure * Lose weight if you are overweight * Be sure to lead an active lifestyle * Eat a healthy diet low in salt, cholesterol and fat You should know about other risk factors for stroke that you are unable to control. These include: * Age 55 years or older * Male gender * Certain racial groups: , or / * Family History of Stroke, Mini stroke or Heart Attack * Sickle Cell Disease You will be receiving a call from the Vascular Surgery Nurse after you are discharged. FOLLOW UP VISIT: It is important for you to keep your follow up appointments with your medical provider. Keep any scheduled doctor appointments. Pending Studies at Discharge: No Stand-Alone Forms: My [facility], Smoking Cessation Medications and DC Order Prescriptions: Continued meloxicam 15 mg tablet 15 mg PO DAILY PRN (Reason: pain) Qty: 90 2RF Rx Instructions: Take with food losartan 100 mg tablet 100 mg PO QAM Qty: 90 3RF allopurinol 100 mg tablet 100 mg PO BID Qty: 180 3RF fluticasone propion-salmeterol [Advair Diskus] 100-50 mcg/dose blister with device 1 ea INH BID Qty: 180 3RF aspirin [Adult Aspirin Regimen] 81 mg tablet,delayed release (DR/EC) 81 mg PO QAM gabapentin 100 mg capsule 100 mg PO TID Qty: 90 5RF rosuvastatin 5 mg tablet 5 mg PO DAILY Qty: 30 11RF amlodipine 5 mg tablet 5 mg PO DAILY Qty: 30 11RF clopidogrel 75 mg tablet 75 mg PO DAILY Qty: 30 2RF albuterol sulfate 90 mcg/actuation Hfa Aerosol Inhaler 1 - 2 inh INHALATION UD PRN (Reason: ASTHMA) PreserVision AREDS-2 [phone] Capsule 2 tab PO QAM No Action epinephrine 0.3 mg/0.3 mL auto-injector 0.3 mg IM Q10M PRN (Reason: BEE STINGS) Qty: 2 0RF Discharge Orders: Discharge Order (Routine); Ordered 10/15/23 Ordered By: Neeraj Kinney Admission Data Admit Date/Time: 10/14/23 09:24 Attending Provider: Neeraj Kinney Admit Provider: Neeraj Kinney Primary Care Provider: Jayson Valenzuela. Other Providers: Cyrus Olivares; Sergio Marie; Abdirahman Lucero; Paul Orellana; Bahman Mcnally; Shirley Gallegos; Isma Chao; Yolis Lara; Jennifer Romero; Channing Martinez; Moses Lira; Deidra Meade Other Interventions: Discharge Summary Assessment (RN) Last Done: 10/15/23 12:00
== END 2023-10-15 12:06 | disposition home or self-care (01) | DRG 35 ==
LOC: ASU 08:26 → 1E 09:24
PROC: EV.TCAR (2023-10-14 10:20)

== ENCOUNTER 2024-10-26 06:34 | Inpatient (IN) ==
--- NOTE | 2024-10-20 14:42 | Anesthesiology Consultation ---
Date of Service October 20, 2024 Assessment & Plan (1) Encounter for pre-operative examination: - Infectious disease screening: Per assessment on 10/20/24- No known recent infectious disease contacts or current infectious disease symptoms. - Neurology workload message (10/14/24): "It is interesting that after undergoing TCAR last year, with a follow-up appointment with Dr. Kinney indicating that the stent was widely patent, he now has an 80% stenosis on recent CT angiography (on both sides). I would refer him back to Dr. Kinney for an opinion regarding the patency of his stent. Otherwise, I agree with dual antiplatelet therapy and rosuvastatin as ordered. The prednisone taper is reasonable as well. Would probably get a repeat ESR and CRP in 1 to 2 weeks. If he has been complaining of headaches, could consider pursuing a temporal artery biopsy and rheumatology assessment as well given the possibility of giant cell arteritis." - Vascular surgery visit (10/15/24): "His primary care physician referred him back to our office for recommendations regarding his carotid disease, due to suspicions of amaurosis.. Patient does have a known at least 80% stenosis of his left ICA, and now with left eye vision changes and concerning for amaurosis versus central retinal artery occlusion. Due to severity of his left ICA stenosis and current symptoms, Dr. Kinney recommends that patient undergo a left TCAR procedure." - PCP visit (10/19/24): F/U visit after [facility] ER evaluation 10/11/24. "He was told to contact his PCP for follow-up. CT angiogram of both carotids and vertebral arteries. This showed a 80% stenosis of the right ICA and left ICA. Radiology did note that there was a stent in place in the right ICA. His labs were normal with the exception of a sedimentation rate of 76 and a hemoglobin of 10.9 which is down from a 12.0 in August 2024. During the visit I had requested an urgent evaluation by ophthalmology. Unfortunately he has not been seen since the last visit. He was started on a tapered dose of methylprednisolone and notes that his headache has improved. However his vision has not improved at all.. Peripheral artery disease-he has a reduced brachial ankle index in both legs around 0.8. His ambulatory limitations or not due to the peripheral artery disease. He was recently seen by vascular surgery and no new treatment was recommended.. TIA (transient ischemic attack).. An urgent MRI was ordered.. There is evidence of bilateral carotid artery disease. I am not convinced that these abnormalities are what caused his symptoms. I am sending a message to neurology to provide some input. He was restarted on aspirin 81 mg daily. I have also referred him to vascular surgery" > Brain MRI scheduled. Neurology response received (detailed above). Ophthalmology appt being arranged (but not scheduled yet). Vascular surgery evaluation completed and recommendation to proceed with TCAR as scheduled 10/26. - Awaiting PCP-ordered Brain MRI if completed prior to surgery ([facility], scheduled 10/23). Patient otherwise acceptable risk for given surgery pending evaluation DOS. Chart Review Chart Review: Patient NOT seen in Pre Admission Testing History Surgery Operation Date: 10/26/24 08:00 Proposed Procedures p Left Transcarotid Artery Revascularization - Neeraj Kinney MD Height/Weight Height: 5 ft 9 in Weight: 81.647 kg Allergies Allergy/AdvReac Type Severity Reaction Status Date / Time venom-honey bee Allergy Severe Passed out Verified 10/20/24 14:40 No Known Drug Allergies Allergy . Verified 10/20/24 13:41 Medications Home Medications Medication Instructions Recorded Confirmed Last Taken aspirin 81 mg tablet,delayed 81 mg PO QAM 06/11/19 10/20/24 10/06/24 release (Adult Aspirin Regimen) vit C 250 mg-vit E 90 mg-zinc 40 2 tab PO QAM 07/19/20 10/20/24 10/06/24 mg-copper 1 [id number] capsule (PreserVision AREDS-2) allopurinol 100 mg tablet 100 mg PO BID #180 tabs 12/23/23 10/20/24 Unknown celecoxib 200 mg capsule 200 mg PO BID #60 caps 02/27/24 10/20/24 Unknown gabapentin 100 mg capsule 100 mg PO TID #300 caps 05/13/24 10/20/24 Unknown albuterol sulfate 90 mcg/actuation 1 inh inhalation QID #8.5 grams 09/14/24 10/20/24 Unknown aerosol inhaler amlodipine 10 mg tablet 10 mg PO QAM #90 tabs 09/14/24 10/20/24 Unknown epinephrine 0.3 mg/0.3 mL 0.3 mg (0.3 mL) IM Q10M PRN BEE 09/14/24 10/20/24 Unknown injection, auto-injector STINGS #2 ea vitamin B12 2,500 mcg-folic acid 1 tab PO DAILY 10/12/24 10/20/24 Unknown 400 mcg disintegrating tablet losartan 100 mg tablet 100 mg PO QAM #90 tabs 10/15/24 10/20/24 Unknown clopidogrel 75 mg tablet 75 mg PO QAM 10/20/24 10/20/24 Unknown methylprednisolone 4 mg tablet 4 mg PO QAM 10/20/24 10/20/24 Unknown rosuvastatin 20 mg tablet 20 mg PO QAM 10/20/24 10/20/24 Unknown Past Medical History Medical History AF (amaurosis fugax) ~08/2023 Aortic stenosis Mild to moderate per 09/2023 ECHO Asthma Carotid artery disease Neck CTA 10/12/24: 80% stenosis of the LUIS with carotid stent in place. 80% stenosis of the proximal LICA with heavily calcified atherosclerotic disease. History of anemia History of COVID-19 08/2019- asymptomatic, no residual issues History of hypertension History of peripheral arterial disease Bilateral LE PAD. Per 05/2024 vasc note- left sided SFA stenosis 70-99%- conservative management (no wounds or symptoms currently) History of stroke Brain MRI 09/2023- MRI of brain showed right occipital lobe chronic cortical infarction. Also area of right basal ganglion that showed some abnormalities associated with chronic small vessel ischemia Hx of gout No flares for at least 10 years Hx of hyperlipidemia Hx-TIA (transient ischemic attack) Most recent 10/12/24 ([facility] evaluation) Hyperlipidemia Per records Lumbar pain Prediabetes HgbA1C 6.4% on 08/13/24 Past Family History Family History Sister Diabetes Breast cancer Lung cancer Father Coronary heart disease Alcohol abuse Stroke Mother Alcohol abuse Denies family history of Ovarian cancer Prostate cancer Myocardial infarction Colorectal cancer Past Surgical History Surgical History Family history of reaction to anesthesia Sister- reaction to Versed, causing hallucinations H/O transcarotid artery revascularization (TCAR) Right (09/2023) History of appendectomy History of bilateral cataract extraction History of colonoscopy Hx of tonsillectomy S/P epidural steroid injection Social History Smoking Status: Former smoker Do You Dip or Chew Tobacco: No Smoking End Date: 50 yrs ago Hx Alcohol Use: No Alcohol type: beer alcohol intake frequency: holidays/special occasions only Hx Substance Use: No substance use type: does not use Lab Results Anesthesia Preop Results Results Anesthesia Widget: WBC 10.55 K/ul (4.8-10.8) 10/12/24 Hgb 10.9 g/dl (14.0-18.0) L 10/12/24 Hct 32.3 % (42.0-52.0) L 10/12/24 Plt 258 K/uL (130-400) 10/12/24 Na 138 mmol/L (136-145) 10/12/24 K 3.8 mmol/L (3.5-5.1) 10/12/24 Cl 106 mmol/L (98-107) 10/12/24 CO2 22 mmol/L (21-32) 10/12/24 BUN 23 mg/dl (6-23) 10/12/24 Creat 1.33 mg/dl (0.6-1.4) 10/12/24 Glucose Level 111 mg/dl (70-99(Fasting)) H 10/12/24 PT 10.3 Seconds (9.0-12.0) 10/12/24 PTT 32 Seconds (21-31) H 10/12/24 INR 0.9 (0.9-1.1) 10/12/24 Blood Type O Positive 09/23/24 Antibody Screen NEGATIVE 09/23/24 Testing Electrocardiogram Date: 10/12/24 SR with PACs at 84bpm. LAD. Possible inferior infarct. Chest X-Ray Date: 09/23/24 Findings: + NAD Echocardiogram Date: 10/10/23 EF: 60-65% LV Function: normal RWMA: + none Other Findings: + diastolic dysfunction (Grade I); no LVH Valvular Disease: + MR (mild) Normal chamber dimensions. Mild to moderate aortic stenosis (JOSH 1.2cm2; AV max velocity 2.609 m/s; AV mean PG 12.1mmHg) Normal estimated heart pressures. No cardiac source of emboli are noted Other Testing Head CT Date: 10/12/24 IMPRESSION: No evidence of acute intercranial pathology. Head CTA Date: 10/12/24 IMPRESSION: Negative CT angiogram of the head. Neck CTA Date: 10/12/24 IMPRESSION: There is an 80% stenosis of the right ICA with carotid stent in place. There is an 80% stenosis of the proximal left ICA with heavily calcified atherosclerotic disease.
[2024-10-26] MEDS ORDERED: fentaNYL citrate PF 100 MCG/2 ML VIAL ONE (06:49)
[2024-10-26] MEDS ORDERED: PHENYLEPHRINE HCL 25 MG/250 ML NSS IV ONE (06:49)
[2024-10-26] MEDS ORDERED: PROPOFOL IV EMULSION 10 MG/ML 20 ML VIAL IV ONE (06:50)
[2024-10-26] MEDS ORDERED: DEXAMETHASONE SOD INJ 4 MG/ML VIAL ONE (06:50)
[2024-10-26] MEDS ORDERED: ONDANSETRON INJ 2 MG/ML 2 ML VIAL ONE ×2 (06:50→09:11)
[2024-10-26] MEDS ORDERED: LIDOCAINE 2% 2 ML VIAL/AMP(20MG/ML) INFIL ONE (06:50)
[2024-10-26] MEDS ORDERED: ROCURONIUM BROMIDE 10 MG/ML 5 ML VIAL IV ONE (06:50)
[2024-10-26] MEDS ORDERED: HEPARIN SOD (PORCINE) 1000 UNIT/ML ONE (07:03)
[2024-10-26 07:11] LABS: BUN Creatinine Ratio 19.9 (10-20); Calcium 8.9 mg/dl (8.6-10.3); Creatinine Clr Calc Pharmacy 35.8 ml/min; Potassium 4.5 mmol/L (3.5-5.1)
[2024-10-26] MEDS: HYDROCORTISONE SOD SUCCINATE 100 MG/2 ML VIAL IV SCH (07:23)
[2024-10-26] MEDS: ASPIRIN 81 MG ECTAB PO STA (07:23)
[2024-10-26] MEDS: CLOPIDOGREL BISULFATE 75 MG TAB PO ONE (07:23)
[2024-10-26] MEDS: SODIUM CHLORIDE 0.9% 1,000 ML IV SCH (07:23)
--- NOTE | 2024-10-26 07:37 | History & Physical Bridge Note ---
Date of Service October 26, 2024 History & Physical Bridge Note I have examined the patient, reviewed the History & Physical and in the interval since the performance of the History & Physical I have noted the following changes of clinical significance: no changes noted
--- NOTE | 2024-10-26 07:37 | History & Physical Report ---
Date of Service October 26, 2024 History of Present Illness Primary Care Provider: Jayson Valenzuela MD Name: JASE CORDOVA Patient Number: [id number] : 1940 Date of Service: 10/15/2024 Chief Complaint: _Left eye amaurosis HPI: _Mr. Cordova is an elderly male who presents to Dr. Kinney's vascular surgery clinic today for an appointment to discuss recent symptoms of left eye amaurosis which occurred about 3 days ago. Patient is known to Dr. Kinney's practice for a right TCAR performed in September 2023. Patient states that he had stopped his aspirin and Plavix last week in preparation for an upcoming lumbar spine surgery that he was to have a few days ago. Less than 24 hours before his scheduled procedure, he developed a loss of the left lateral portion of his left eye vision which lasted for about 15 minutes or so before mostly resolving. It has not completely resolved. Patient states at this point he is sometimes seeing a shadow over his left eye almost as if someone is standing in the corner or walking past him, but there is nothing there when he turns his head. He is having some difficulty reading as he is unable to see the first numbers or first letters of what ever he is trying to read. He denies any other symptoms including facial droop, sudden onset confusion, difficulty speaking or swallowing, or other concerns. He was seen in the emergency department, who advised him to restart his DAPT and follow-up with ophthalmology. His primary care physician referred him back to our office for recommendations regarding his carotid disease, due to suspicions of amaurosis. Patient denies any other changes in his health since his last visit here few months ago, and states overall he is feeling well aside from this problem. CTA of the neck performed at [facility] 2 days ago de monstrates a widely patent right ICA stent, and about 80% stenosis of his left ICA. Current Home Meds: (Last Updated 10/15 13:33) EPINEPHrine (EpiPen 2-Albino 0.3 mg injectable kit) 0.3 mg IM ONCE PRN: as needed for anaphylaxis albuterol (albuterol CFC free 90 mcg/inh MDI) 2 puff inhaled qid PRN: as needed for wheezing allopurinol 100 mg PO bid amLODIPine (amLODIPine 10 mg oral tablet) 10 mg PO Daily aspirin (aspirin 81 mg oral delayed release tablet) 81 mg PO Daily celecoxib (celecoxib 200 mg oral capsule) 200 mg PO Daily PRN: as needed for pain cholecalciferol (Vitamin D3) 25 mcg PO Daily clopidogrel (clopidogrel 75 mg oral tablet) 75 mg PO Daily gabapentin (gabapentin 100 mg oral capsule) TAKE ONE CAPSULE BY MOUTH THREE TIMES A DAY losartan 100 mg PO Daily methylPREDNISolone (methylPREDNISolone 4 mg oral tablet) TAKE 5 TABLETS BY MOUTH EVERY DAY FOR 3 DAYS, TAKE 4 TABLETS EVERY DAY FOR 3 DAYS, TAKE 3 TABLETS EVERY DAY FOR 3 DAYS, TAKE 2 TABLETS EVERY multivitamin with minerals (PreserVision AREDS 2 oral tablet, chewable) 2 tab PO Daily predniSONE (predniSONE 10 mg oral tablet) 10 mg PO Daily on hold while on medrol dose pack rosuvastatin (rosuvastatin 20 mg oral tablet) 20 mg PO Daily Allergies and Sensitivities: Bee stings(syncope) Bee stings(anaphylactic) Past Medical History: Problems: Notalgia paresthetica Seborrheic keratoses Internal carotid artery stent present Bilateral carotid artery stenosis Peripheral arterial disease (atherosclerosis) 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 No Orthostatic Data Available Height and Weight: Last Updated 02/13/23 09:44 Date BMI Wt(kg) Wt(lb) Method Ht(cm) (ft-in) Method 02/13/23 76.1 167 Standing Scale 09/28/21 79 174 Standing Scale Heights and Weights are the last 3 documented. Physical Exam Constitutional: In general patient is a healthy-appearing well-nourished well- developed elderly male in no distress. Is alert and oriented with any focal deficits. His carotids do demonstrate a faint bruit. His heart is regular, lungs are decreased but clear. Radial pulses are +3. Abdomen soft nontender with no active bowel sounds in 4 quadrants. Lower extremity distal pulses are +1. He has brisk capillary refill and no sign of distal ischemia. ASSESSMENT: _ PLAN: _ 1 ) _symptomatic left ICA stenosis Patient does have a known at least 80% stenosis of his left ICA, and now with left eye vision changes and concerning for amaurosis versus central retinal artery occlusion. Due to the severity of his left ICA stenosis and current symptoms, Dr. Kinney recommends that patient undergo a left TCAR procedure. The procedure risks benefits and alternatives were discussed with the patient by myself at Dr. Kinney's request. Patient expressed understanding and agreement to proceed. This will occur in the next 1 to 2 weeks at the patient's convenience. He is to remain on his DAPT up through surgery. He is advised to call any questions or concerns. He is agreeable to this plan. Thank you for letting us participate in the care of this patient. I have personally [id number]___ minutes performing [id number] and xky-ehai-fv-face activities on this date of service.Time does not include separately reported services. Activities Include: x__ review of the medical record _x_ obtaining a history x__ physical exam/evaluation __ review labs _x_ counseling/educating patient/family/caregiver __ discussion/referral to other healthcare professional x__ documenting care in the medical record __ independent interpretation of results _x_ communication of results to patient/family/caregiver _x_ coordination of care Signature Line Electronic Signature on File CC: Jayson Valenzuela MD [facility] [address] [address] * Electronically Reviewed/Signed by: Concepción Harman PA-C Author Signature Dt/Tm:10/15/2024 02:14 PM [facility] [address] [place] [address] Result Type: HVI Outpt Note Date of Service: October 15, 2024 14:08 EDT Authorization Status: Final Author or Import Date: EVERETT Harman Lynn on October 15, 2024 14:14 EDT Verified By: EVERETT Harman Lynn on October 15, 2024 14:14 EDT Encounter info: [id number], [place] [address], Clinic, 10/15/2024 - 10/15/2024 Allergies Allergy/AdvReac Type Severity Reaction Status Date / Time venom-honey bee Allergy Severe Passed out Verified 10/26/24 06:51 No Known Drug Allergies Allergy . Verified 10/26/24 06:51 Home Medications Medication Instructions Recorded Confirmed Type aspirin 81 mg tablet,delayed 81 mg PO QAM 06/11/19 10/26/24 History release (Adult Aspirin Regimen) vit C 250 mg-vit E 90 mg-zinc 40 2 tab PO QAM 07/19/20 10/26/24 History mg-copper 1 [id number]-ykcnjr capsule (PreserVision AREDS-2) celecoxib 200 mg capsule 200 mg PO BID #60 caps 02/27/24 10/26/24 Rx gabapentin 100 mg capsule 100 mg PO TID #300 caps 05/13/24 10/26/24 Rx albuterol sulfate 90 mcg/actuation 1 inh inhalation QID #8.5 grams 09/14/24 10/26/24 Rx aerosol inhaler amlodipine 10 mg tablet 10 mg PO QAM #90 tabs 09/14/24 10/26/24 Rx epinephrine 0.3 mg/0.3 mL 0.3 mg (0.3 mL) IM Q10M PRN BEE 09/14/24 10/26/24 Rx injection, auto-injector STINGS #2 ea vitamin B12 2,500 mcg-folic acid 1 tab PO DAILY 10/12/24 10/26/24 History 400 mcg disintegrating tablet losartan 100 mg tablet 100 mg PO QAM #90 tabs 10/15/24 10/26/24 Rx clopidogrel 75 mg tablet 75 mg PO QAM 10/20/24 10/26/24 History methylprednisolone 4 mg tablet 4 mg PO QAM 10/20/24 10/26/24 History rosuvastatin 20 mg tablet 20 mg PO QAM 10/20/24 10/26/24 History Past Med/Surg History Problem List Carotid artery stenosis (Acute) Piriformis syndrome Carotid artery stenosis Disc degeneration, 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 80% stenosis of the proximal LICA with heavily calcified atherosclerotic disease. History of anemia History of COVID-19 08/2019- asymptomatic, no residual issues History of hypertension History of peripheral arterial disease Bilateral LE PAD. Per 05/2024 vasc note- left sided SFA stenosis 70-99%- conservative management (no wounds or symptoms currently) History of stroke Brain MRI 09/2023- MRI of brain showed right occipital lobe chronic cortical infarction. Also area of right basal ganglion that showed some abnormalities associated with chronic small vessel ischemia Hx of gout No flares for at least 10 years Hx of hyperlipidemia Hx-TIA (transient ischemic attack) Most recent 10/12/24 ([facility] evaluation) Hyperlipidemia Per records Lumbar pain Prediabetes HgbA1C 6.4% on 08/13/24 Surgical History Family history of reaction to anesthesia Sister- reaction to Versed, causing hallucinations H/O transcarotid artery revascularization (TCAR) Right (09/2023) History of appendectomy History of bilateral cataract extraction History of colonoscopy Hx of tonsillectomy S/P epidural steroid injection Family History Sister Diabetes Breast cancer Lung cancer Father Coronary heart disease Alcohol abuse Stroke Mother Alcohol abuse Denies family history of Ovarian cancer Prostate cancer Myocardial infarction Colorectal cancer Social History Smoking Status: Former smoker Tobacco Type: Cigarettes Age Started Using Tobacco: 18; Age Quit Using Tobacco: 25; packs per day: 1; Smoking End Date: 50 yrs ago; Second Hand Exposure: No; Do You Dip or Chew Tobacco: No; Tobacco Cessation Education Requested by Patient: No Hx Alcohol Use: No Hx Substance Use: No Preferred Language: Turkish Communication Ability: Effective Rounder Hand Required: No Beliefs That Will Affect Care: None marital status: Current Living Situation: Spouse Current Living Situation Comment: [facility] current occupational status: retired Other Information That Helps Us Care for You: No Feels Safe at Home: Yes Safety Concerns: Feels Safe At This Time Childhood Exposure to Second-Hand Smoke: Yes caffeine: Yes (soda) Dental Care, Regularly: Yes Physical Activity Frequency: Does not Exercise Seatbelt Use: always Sunscreen Use: No Assistive Devices: Glasses Results & Data Vital Signs (Past 12 Hours) Vital Signs Temp Pulse Resp BP BP Pulse Ox O2 Del Method 10/26/24 06:57 36.6 C 83 20 182/94 H 191/79 H 97 Room Air
[2024-10-26] MEDS ORDERED: GLYCOPYRROLATE 0.2 MG/ML VIAL ONE (07:45)
[2024-10-26] MEDS ORDERED: ONDANSETRON INJ 2 MG/ML 2 ML VIAL IV PRN (07:51)
[2024-10-26] MEDS ORDERED: fentaNYL citrate PF 100 MCG/2 ML VIAL IV PRN (07:51)
[2024-10-26] MEDS ORDERED: HYDROmorphone INJ 2 MG/ML SYR/VIAL IV PRN (07:51)
[2024-10-26] MEDS ORDERED: PROMETHAZINE HCL 6.25 MG in SODIUM CHLORIDE 0.9% 50 ML IV PRN (07:51)
[2024-10-26] MEDS ORDERED: ATROPINE SULFATE 0.1 MG/ML 10ML SYR IV PRN (07:51)
[2024-10-26] MEDS ORDERED: ePHEDrine sulfate 50 MG/ML AMP IV PRN (07:51)
[2024-10-26] MEDS: ceFAZolin 2000MG 2,000 MG/15 ML SYR IV SCH ×2 (07:59→16:03)
[2024-10-26] MEDS ORDERED: ePHEDrine sulfate 50 MG/5 ML SYR ONE (08:37)
[2024-10-26] MEDS ORDERED: PROTAMINE SULFATE 10 MG/ML 5 ML VIAL IV ONE (08:52)
[2024-10-26] MEDS ORDERED: SUGAMMADEX SODIUM 200 MG/2 ML VIAL IV ONE (08:52)
[2024-10-26] MEDS: VISIPAQUE IV ONE (09:16)
[2024-10-26] MEDS: GELATIN SPONGE SZ 100 ONE (09:20)
[2024-10-26] MEDS: THROMBIN FOR SOLN 20000 UNIT KIT ONE (09:20)
[2024-10-26] MEDS: ceFAZolin 330 MG/ML 1 GM VIAL ONE (09:21)
[2024-10-26] MEDS: BUPIVACAINE/EPINEPHRINE 0.5% MPF 1:200,000 30 ML VIAL ONE (09:21)
--- NOTE | 2024-10-26 09:23 | Post Operative Brief Note ---
Immediate Post Op Note Date of Surgery October 26, 2024 Pre & Post Diagnosis Operation Date: 10/26/24 08:00 Pre-Op Diagnosis: Symptomatic Left Internal Carotid Artery Stenosis, Left Eye Amaurosis Post-Op Diagnosis: Symptomatic Left Internal Carotid Artery Stenosis, Left Eye Amaurosis I identified the patient and participated in the time-out.: Yes Procedure Operation Date: 10/26/24 08:00 Actual Procedures p Left Transcarotid Artery Revascularization, Ultrasound of Right Common Femoral Vein(Left) - Neeraj Kinney MD Surgeon Neeraj Kinney MD [facility] Social Worker MD Kristen Majanoarchkristian,PAC Estimated Blood Loss 10 Findings Consistent with Post-Op Diagnosis Anesthesia Type General Complications none Disposition Accompanied Patient To Recovery: No Disposition: Recovery Room
[2024-10-26] MEDS: SURGICEL ABSORB HEMOSTAT 2IN X 14IN TOP ONE (09:35)
--- NOTE | 2024-10-26 09:35 | Operative Report ---
Post Operative Report Pre & Post Diagnosis Operation Date: 10/26/24 08:00 Pre-Op Diagnosis: Symptomatic Left Internal Carotid Artery Stenosis, Left Eye Amaurosis Post-Op Diagnosis: Symptomatic Left Internal Carotid Artery Stenosis, Left Eye Amaurosis I identified the patient and participated in the time-out.: Yes Procedure Operation Date: 10/26/24 08:00 Actual Procedures p Left Transcarotid Artery Revascularization, Ultrasound of Right Common Femoral Vein(Left) - Neeraj Kinney MD Surgeon Neeraj Kinney MD Sugar Coating Hand MD Tanika Majano,PAC Estimated Blood Loss 10 Findings Consistent with Post-Op Diagnosis Severe stenosis of the left internal carotid artery resolved following stent placement. Specimens None Anesthesia Type General Complications None Disposition Accompanied Patient To Recovery: No Indications Xavier Moscoso is a pleasant 84 year old male with symptomatic left carotid artery stenosis. After discussion of the procedure above, risks, and benefits he elected to proceed with left TCAR Description of Procedure The patient was taken to the operating room and placed in supine position. After general anesthesia was accomplished the left-side of the neck and right groin were prepped and draped in a sterile manner. A transverse 4cm incision was made on the left neck over the sternal and clavicular heads of the sternocleidomastoid muscle and below the omohyoid. Subcutaneous tissue and platysma were divided using electrocautery. Dissection using Metzenbaum scissors proceeded and the carotid sheath was identified medially. It was divided longitudinally. The internal jugular was retracted laterally. The common carotid artery was identified with the Vagus nerve posterolateral. The common carotid artery was mobilized with Metzenbaum scissors and umbilical tape was placed around the artery. Once sufficient length, about 2cm of the common carotid were mobilized, a 5-0 Proline suture was used to place a U-Stitch in the anterior surface of the right common carotid artery. 8000U of heparin was then given to obtain an ACT > 250. Attention was turned to the right common femoral vein which was then accessed under ultrasound guidance using a micropuncture needle. This was exchanged for the Venous Return Sheath over the provided 0.035'' wire. Blood was aspirated from the flow line followed by flushing of the venous sheath with heparinized saline. The sheath was sutured in place to the patient's skin. A micropuncture needle was used to access the common carotid artery in the center of the U-stitch. The micropuncture wire was then advance 4cm into the common carotid artery and the micropuncture needle was removed. The micropuncture sheath was advanced 2-3cm into the common carotid artery and the wire and dilator were removed. A carotid angiogram was performed and the lesion marked. Next a 0.035'' J guidewire was was inserted and placed just proximal to the left internal carotid artery lesion without engaging the lesion under fluoroscopic guidance. The micropuncture sheath was exchanged over the guidewire and the Transcarotid Arterial Sheath was advanced to the 2.5cm marker in correct coaxial orientation and the J wire and dilator were removed. The Sheath was sutured to the patient and then flushed with heparinized saline. No air bubbles visualized during flushing The flow controller was connected to the Transcarotid arterial sheath. Arterial blood was allowed to passively fill the device completely to which it was then connected to the Venous return sheath. The flow controller was set to high. The common carotid artery proximal to the access point was then clamped with an angled DeBakey and flow reversal was confirmed. A left carotid angiogram was then performed and the left internal carotid artery lesion was marked. HR and systolic blood pressures were adequate with HR of about 80 and blood pressure between 140 and 160 systolic. The lesion was then crossed using a 0.014'' guidewire. The lesion was then pre-dilated using a 5.5mm x 35mm balloon. This balloon was then exchanged and primary stenting was performed with the Transcarotid stent, appropriately sized (10-8 x 40mmm). Post dilation was performed with a 6x25mm balloon to 14 ATMs. Completion carotid angiography demonstrated patent stent with <50% residual stenosis Antegrade flow was restored following release of the common carotid artery clamp. The arterial sheath was removed and U-Stitch tied. The femoral venous sheath was removed and pressure held for 5 min with adequate hemostasis. Adequ ate hemostasis was seen of the carotid artery. The wound was inspected and adequate hemostasis was obtained. It was then closed with a running 3-0 Vicryl suture for the platysmal layer and a 4-0 subcuticular Vicryl suture for the skin edges. Dermabond was used for dressing. Patient awoke from anesthesia without difficulties. Was neurovascularly intact, moving all extremities and following commands at case completion. The patient left the operating room in satisfactory condition and tolerated the procedure well A total of 40mGy, 3.9 min of fluoroscopy time, and 18cc of contrast were used d uring the procedure. Dr. Kinney was present and scrubbed for the entire procedure. I attest to the content of the Intraoperative Record and any orders documented therein. Any exceptions are noted below. Supervising Physician Co-Signing Physician Notes Neeraj Kinney MD
[2024-10-26] MEDS ORDERED: PHENYLEPHRINE/NSS 25 MG/250 ML BAG IV PRN (11:40)
[2024-10-26] MEDS ORDERED: STAT IV Infusion **Titration per Protocol STA (11:40)
[2024-10-26] MEDS ORDERED: oxyCODONE/ACETAMINOPHEN 5mg/325mg TAB PO PRN (11:40)
[2024-10-26] MEDS ORDERED: EPINEPHrine INJ 1 MG/ML AMP IM PRN (11:46)
--- NOTE | 2024-10-26 13:14 | Anesthesiology Progress Note ---
Date of Service October 26, 2024 Anesthesia Post Procedure Vital Signs Vital Signs: Temp Pulse Pulse Resp BP BP BP 10/26/24 12:39 75 10 L 10/26/24 12:09 75 23 10/26/24 12:00 128/77 10/26/24 11:48 86 26 H 10/26/24 11:45 75 14 10/26/24 11:40 36.8 C 10/26/24 11:15 78 16 115/65 10/26/24 11:00 70 14 120/60 10/26/24 10:45 77 18 124/62 10/26/24 10:30 76 16 121/61 10/26/24 10:20 78 14 116/84 10/26/24 10:10 36.4 C L 80 18 126/65 10/26/24 10:00 80 18 131/63 10/26/24 09:50 83 16 129/68 10/26/24 09:43 36.1 C L 88 16 146/69 H 10/26/24 06:57 36.6 C 83 20 182/94 H 191/79 H BP Pulse Ox O2 Del Method O2 Flow Rate 10/26/24 12:39 96 10/26/24 12:09 93 10/26/24 12:00 10/26/24 11:48 96 10/26/24 11:45 97 10/26/24 11:40 10/26/24 11:15 138/57 L 95 Room Air 10/26/24 11:00 139/51 L 94 Room Air 10/26/24 10:45 139/52 L 95 Room Air 10/26/24 10:30 138/48 L 96 Room Air 10/26/24 10:20 138/50 L 95 Room Air 10/26/24 10:10 135/54 L 95 Room Air 10/26/24 10:00 134/71 96 Room Air 10/26/24 09:50 131/66 99 Oxymask 3 10/26/24 09:43 98 Oxymask 6 10/26/24 06:57 97 Room Air Transfer of Care Handoff Completed per policy Notes Mental Status: alert / awake / arousable and participated in evaluation Patient Amnestic to Procedure: Yes Nausea / Vomiting: adequately controlled Pain: adequately controlled Airway Patency, RR, SpO2: stable & adequate BP & HR: stable & adequate Hydration State: stable & adequate Anesthetic Complications: no major complications apparent
[2024-10-26] MEDS: LACTATED RINGER'S 1,000 ML IV SCH (13:32)
--- NOTE | 2024-10-26 15:06 | Critical Care Consultation ---
Date of Consultation October 26, 2024 Assessment & Plan (1) Carotid artery stenosis: (2) Anemia: (3) Lumbar spondylosis: (4) Hypertension: (5) Asthma: (6) Peripheral artery disease: (7) Spinal stenosis of lumbar region with neurogenic claudication: (8) Piriformis syndrome: (9) Hx of hyperlipidemia: Plan Pt is an 84 yo male with PMH of asthma, spinal stenosis, HTN, gout, HLD, chronic anemia, PAD and hx of right TCAR in August 2023 who presents following left TCAR after TIA 2 weeks prior that caused left eye peripheral vision changes. Vision resolved prior to procedure. Pt is resting comfortably following procedure and is stable in terms of his vitals and cognition. Neuro: Currently pt is A&O x 3. He is at risk for delirium due to age and recent surgery and now in ICU. Plan to monitor and avoid interrupting pt's sleep cycle, maintain orientation with visitation from and close family. Pt carries diagnosis of neuropathic pain from lumbar stenosis and taking gabapentin at home. Plan to continue 100mg TID Cardiovascular: Pt with hx of vascular disease with previous TIAs and right TCAR. S/P left TCAR with incision at is clean dry and well approximated. Continue low dose aspirin, clopidogrel and atorvastatin. History of HTN and using amlodipine and losartan for BP control at home. BP's on arterial line have been low with MAP dipping below 60 at times. BP's taken are left arm have been stable with systolic above 115 and diastolic above 60. Will hold home BP meds, but likely to resume on 10/27. Will continue to trend. Respiratory: Pt is maintaining O2 sat above 90% on room air and without assist from home med of albuterol. Lungs are clear to auscultation at this time. -- Ex-smoker Only [id number] smoking history Quit at the age of 34 GI: No GI issues noted. No PPI indicated at this time. Pt is eating regular diet and tolerating well. Renal: Bump in creatinine from 1.3 (baseline) to 1.51 and elevated BUN noted in CMP today prior to procedure. All other electrolytes were within normal ranges. Pt has received NS 50mls/hr this morning. Post procedure, Pt is eating and drinking as tolerated. Will encourage hydration with water and monitor kidney function and electrolytes with AM BMP. Endocrine: No reported hx of DM, thyroid disease or adrenal conditions. BSG has been under control between 100-111. ID: Pt has been afebrile, vitals are stable, no signs of infection at this time. Heme-onc: Hx of chronic anemia with normal MVC. Pt's Hbg is 10.5 following procedure, below pt's baseline of 11. Pt takes B12 and folic acid at home. Will continue vitamin supplementation and monitor H & H in AM labs MSK: Current lumbar stenosis and piriformis syndrome. Using celecoxib for arthritic pain control, plan to continue. Consider PT/OT eval if pt has difficulty with out of bed activity. Supervising Physician Co-Signing Physician Notes Dr Whyte was the resident-physician during care of patient. I separately evaluated patient for hurst portions of the history and the exam. I was present during the critical portion of medical decision making, and I discussed the case with the resident. I generally agree with the findings and plan except for any additions/exceptions noted. Patient seen and examined at bedside. Patient is s/p left-sided TCAR by Dr. Kinney Past medical history of dyslipidemia, CKD, TIA, remote history of smoking Complained of mild soreness in the throat. Denies any difficulty swallowing No nausea or vomiting Denied any headache or blurry vision Constitutional: No acute distress HEENT: EOMI, PERRLA, left neck incision clean Respiratory system: Good air entry bilaterally, no wheeze, rhonchi, minimal crackles bilateral lower lobes CVS: S1-S2 positive, positive 2 out of 6 systolic murmur appreciated best at aorta Abdomen: Soft, nontender, nondistended, positive bowel sounds x4 Extremities: +2 pulses bilaterally radialis/ dorsalis pedis, no cyanosis, no edema Neuro: Awake alert oriented x3 Psych: Normal mood and affect G/U: No Gore --Prophylaxis VTE: IPC GI: None Lines: Peripheral, right radial Diet: Cardiorenal Plan: Strict in and out Monitor H&H Continue with neurocheck as per protocol Chest x-ray from 09/23/2024 which was personally reviewed did not show any significant abnormality. ICU hypoglycemia protocol Monitor BUNs/creatinine Will get the patient incentive spirometry Case was discussed with RN at bedside I spent more than 75 minutes looking in the chart, images, discussing the plan of care with the patient, RN as well as primary team This includes time spent evaluating patient, direct bedside care, chart review, placing orders, interpretation of diagnostic studies, discussion with consultants, patient, and family members, as well as other required patient management activities. This time is exclusive of all separately billable procedures, and teaching time and separate from and in addition to any other critical care service time. Please note the above document was generated using voice recognition software. It may contain grammatical, syntax or spelling errors. History of Present Illness Reason for Consultation: S/p L TCAR Requesting Physician: Dr. Kinney Attending Physician: Nereaj Kinney MD History of Present Illness Pt is an 84 yo male with PMH of asthma, spinal stenosis, HTN, gout, HLD, chronic anemia, PAD and hx of right TCAR in August 2023 who presents following left TCAR after TIA 2 weeks prior that caused left eye peripheral vision changes. Pt was determined to have an 80% blockage at left ICA from neck CTA on 10/12/24. Today, pt is s/p left TCAR and reports feeling well after surgical procedure. He noted some throat soreness, especially while eating lunch. No other complaints at this time. Pt denies headache, neck pain, chest pain, SOB, nausea, abdominal pain, weakness or numbness at extremities. Allergies Allergy/AdvReac Type Severity Reaction Status Date / Time venom-honey bee Allergy Severe Passed out Verified 10/26/24 06:51 No Known Drug Allergies Allergy . Verified 10/26/24 06:51 Home Medications Medication Instructions Recorded Confirmed Type aspirin 81 mg tablet,delayed 81 mg PO QAM 06/11/19 10/26/24 History release (Adult Aspirin Regimen) vit C 250 mg-vit E 90 mg-zinc 40 2 tab PO QAM 07/19/20 10/26/24 History mg-copper 1 [id number] capsule (PreserVision AREDS-2) celecoxib 200 mg capsule 200 mg PO BID #60 caps 02/27/24 10/26/24 Rx gabapentin 100 mg capsule 100 mg PO TID #300 caps 05/13/24 10/26/24 Rx albuterol sulfate 90 mcg/actuation 1 inh inhalation QID #8.5 grams 09/14/24 10/26/24 Rx aerosol inhaler amlodipine 10 mg tablet 10 mg PO QAM #90 tabs 09/14/24 10/26/24 Rx epinephrine 0.3 mg/0.3 mL 0.3 mg (0.3 mL) IM Q10M PRN BEE 09/14/24 10/26/24 Rx injection, auto-injector STINGS #2 ea vitamin B12 2,500 mcg-folic acid 1 tab PO DAILY 10/12/24 10/26/24 History 400 mcg disintegrating tablet losartan 100 mg tablet 100 mg PO QAM #90 tabs 10/15/24 10/26/24 Rx clopidogrel 75 mg tablet 75 mg PO QAM 10/20/24 10/26/24 History methylprednisolone 4 mg tablet 4 mg PO QAM 10/20/24 10/26/24 History rosuvastatin 20 mg tablet 20 mg PO QAM 10/20/24 10/26/24 History Patient History Medical History AF (amaurosis fugax) ~08/2023 Aortic stenosis Mild to moderate per 09/2023 ECHO Asthma Carotid artery disease Neck CTA 10/12/24: 80% stenosis of the LUIS with carotid stent in place. 80% stenosis of the proximal LICA with heavily calcified atherosclerotic disease. History of anemia History of COVID-19 08/2019- asymptomatic, no residual issues History of hypertension History of peripheral arterial disease Bilateral LE PAD. Per 05/2024 vas note- left sided SFA stenosis 70-99%- conservative management (no wounds or symptoms currently) History of stroke Brain MRI 09/2023- MRI of brain showed right occipital lobe chronic cortical infarction. Also area of right basal ganglion that showed some abnormalities associated with chronic small vessel ischemia Hx of gout No flares for at least 10 years Hx of hyperlipidemia Hx-TIA (transient ischemic attack) Most recent 10/12/24 ([facility] evaluation) Hyperlipidemia Per records Lumbar pain Prediabetes HgbA1C 6.4% on 08/13/24 Surgical History Family history of reaction to anesthesia Sister- reaction to Versed, causing hallucinations H/O transcarotid artery revascularization (TCAR) Right (09/2023) History of appendectomy History of bilateral cataract extraction History of colonoscopy Hx of tonsillectomy S/P epidural steroid injection Family History Sister Diabetes Breast cancer Lung cancer Father Coronary heart disease Alcohol abuse Stroke Mother Alcohol abuse Denies family history of Ovarian cancer Prostate cancer Myocardial infarction Colorectal cancer Social History Smoking Status: Never smoker Tobacco Type: Cigarettes Age Started Using Tobacco: 18; Age Quit Using Tobacco: 25; packs per day: 1; Second Hand Exposure: No; Do You Dip or Chew Tobacco: No; Hx Alcohol Use: No Hx Substance Use: No Preferred Language: Malagasy Communication Ability: Unable Lockstitch Cup Setter Required: No Beliefs That Will Affect Care: None marital status: Current Living Situation: Spouse Current Living Situation Comment: [facility] current occupational status: retired Feels Safe at Home: Yes Childhood Exposure to Second-Hand Smoke: Yes caffeine: Yes (soda) Dental Care, Regularly: Yes Physical Activity Frequency: Does not Exercise Seatbelt Use: always Sunscreen Use: No Assistive Devices: None Review of Systems 2 Constitutional: as per Subjective / HPI Physical Exam 2 Constitutional: well developed and cooperative; no acute distress Eyes: PERRL, conjunctivae normal, anicteric sclerae ENMT: external ear and nose normal, oropharynx normal Neck: trachea midline, no thyromegaly Respiratory: normal respiratory effort, lungs clear to auscultation A uscultation: no diminished lung sounds, no crackles and no wheezes Cardiovascular: Rate/Rhythm: regular rate and regular rhythm Heart Sounds: + murmur (systolic 3/6 heard at left sternal border) Gastrointestinal (Abdomen): Inspection/Auscultation: abdomen not distended Percussion/Palpation: abdomen soft; abdomen nontender Musculoskeletal: no cyanosis or clubbing, extremities motor strength 5/5 Neurologic: PERRL, EOMI, accommodation nl, no face palsy, no dysarthria C ranial Nerves: normal facial strength Results & Data Results & Data Vital Signs (Past 12 Hours) Vital Signs Temp Pulse Pulse Resp BP BP BP 10/26/24 12:39 75 10 L 10/26/24 12:09 75 23 10/26/24 12:00 128/77 10/26/24 11:48 86 26 H 10/26/24 11:45 75 14 10/26/24 11:40 36.8 C 10/26/24 11:15 78 16 115/65 10/26/24 11:00 70 14 120/60 10/26/24 10:45 77 18 124/62 10/26/24 10:30 76 16 121/61 10/26/24 10:20 78 14 116/84 10/26/24 10:10 36.4 C L 80 18 126/65 10/26/24 10:00 80 18 131/63 10/26/24 09:50 83 16 129/68 10/26/24 09:43 36.1 C L 88 16 146/69 H 10/26/24 06:57 36.6 C 83 20 182/94 H 191/79 H BP Pulse Ox O2 Del Method O2 Flow Rate 10/26/24 12:39 96 10/26/24 12:09 93 10/26/24 12:00 10/26/24 11:48 96 10/26/24 11:45 97 10/26/24 11:40 10/26/24 11:15 138/57 L 95 Room Air 10/26/24 11:00 139/51 L 94 Room Air 10/26/24 10:45 139/52 L 95 Room Air 10/26/24 10:30 138/48 L 96 Room Air 10/26/24 10:20 138/50 L 95 Room Air 10/26/24 10:10 135/54 L 95 Room Air 10/26/24 10:00 134/71 96 Room Air 10/26/24 09:50 131/66 99 Oxymask 3 10/26/24 09:43 98 Oxymask 6 10/26/24 06:57 97 Room Air Laboratory Results 10/26/24 06:37 Resident Activity Tracking Resident Involvement: Resident Care Provided Care Provided: Adult Hospital Medicine
--- NOTE | 2024-10-26 15:09 | Billing Data ---
Date of Service October 26, 2024 Coding Level of Care Code 81894 INT INP/OBS CARE
[2024-10-26] MEDS: GABAPENTIN 100 MG CAP PO SCH (16:02)
[2024-10-26] MEDS: ALBUTEROL HFA 8 GM INHALER INH SCH (18:05)
[2024-10-26] MEDS: CeleBREX 200 MG CAP PO SCH (20:13)
[2024-10-27] MEDS: amLODIPine BESYLATE 5 MG TAB PO SCH (08:09)
[2024-10-27] MEDS: CLOPIDOGREL BISULFATE 75 MG TAB PO SCH (08:10)
[2024-10-27] MEDS: ASPIRIN 81 MG ECTAB PO SCH (08:10)
[2024-10-27] MEDS: LOSARTAN POTASSIUM 50 MG TAB PO SCH (08:11)
[2024-10-27] MEDS: FOLIC ACID 400 MCG TAB PO SCH (08:11)
[2024-10-27] MEDS: ROSUVASTATIN CALCIUM 20 MG TAB PO SCH (08:11)
[2024-10-27] MEDS: CEROVITE ADV FORMULA TAB PO SCH (08:11)
[2024-10-27] MEDS: CYANOCOBALAMIN (B-12) 2,500 MCG TABLET SL SCH (08:11)
[2024-10-27 08:35] VITALS: TEMP 97.9
[2024-10-27 08:48] VITALS: BP 139/70; PULSE 65; RESP 17; O2SAT 98
--- NOTE | 2024-10-27 08:52 | Critical Care Progress Note ---
Date of Service October 27, 2024 Assessment & Plan (1) Carotid artery stenosis: (2) Anemia: (3) Lumbar spondylosis: (4) Hypertension: (5) Asthma: (6) Peripheral artery disease: (7) Spinal stenosis of lumbar region with neurogenic claudication: (8) Piriformis syndrome: (9) Hx of hyperlipidemia: Plan Pt is an 84 yo male with PMH of asthma, spinal stenosis, HTN, gout, HLD, chronic anemia, PAD and hx of right TCAR in August 2023 who presents following left TCAR after TIA 2 weeks prior that caused left eye peripheral vision changes. Vision resolved prior to procedure. Pt has been stable in terms of his vitals and neurological status. Crackles noted at bilateral lower lobes and trace edema at ankles this morning, however likely due to increase in fluid volume with a positive balance of 1239. Pt is not longer in need of ICU level of care. His disposition is pending recommendation by Dr. Kinney and his team. Neuro: Currently pt is A&O x 3. Continue Gabapentin 100mg TID for diagnosis of neuropathic pain from lumbar stenosis Cardiovascular: Pt with hx of vascular disease with previous TIAs and right TCAR. S/P left TCAR with incision at is clean dry and well approximated. Continue low dose aspirin, clopidogrel and atorvastatin. History of HTN and using amlodipine and losartan for BP control at home. Remove arterial line. Systolic murmur noted on exam. Echocardiogram in 09/2024 showed Mild mitral valve and trace tricuspid valve regurgitation along with mild-moderate aortic stenosis with EF of 60-65%. Pt can follow up with PCP in outpatient setting to determine further surveillance via cardiology. Respiratory: Pt is maintaining O2 sat above 90% on room air and albuterol inhaler. Crackles noted at bilateral lower lobes. Pt has incentive spirometer and was instructed to continue use daily, including after hospital discharge for pulmonary toilet. GI: No GI issues noted. No PPI indicated at this time. Pt is eating heart healthy diet and tolerating well. Renal: Bump in creatinine from 1.3 (baseline) to 1.51 and elevated BUN noted in CMP on 10/26/24 prior to procedure. All other electrolytes were within normal ranges. He has not received IVF since surgery. Post procedure, pt is eating and drinking as tolerated. Will encourage hydration with water. Pt can follow up with BNP in outpatient setting. Endocrine: No reported hx of DM, thyroid disease or adrenal conditions. No interventions at this time ID: Pt has been afebrile, vitals are stable, no signs of infection at this time. Heme-onc: Hx of chronic anemia with normal MVC. Pt's Hbg is 10.5 following procedure, below pt's baseline of 11. Pt takes B12 and folic acid at home. Will continue vitamin supplementation. MSK: Current lumbar stenosis and piriformis syndrome. Continue celecoxib for arthritic pain control. Admission and Anticipated Discharge Date Admission Date: October 26, 2024 Supervising Physician Co-Signing Physician Notes Dr Whyte was the resident-physician during care of patient. I separately evaluated patient for hurst portions of the history and the exam. I was present during the critical portion of medical decision making, and I discussed the case with the resident. I generally agree with the findings and plan except for any additions/exceptions noted. Patient seen and examined at bedside. No acute distress, no adverse events overnight Was able to tolerate the diet without any issues Shortness of throat has mellowed down. Denied any headache, no blurry vision No chest pain, no shortness of breath No nausea or vomiting Systolic blood pressure was in the 130s, saturating 97% on room air Constitutional: No acute distress HEENT: EOMI, PERRLA, left neck incision clean Respiratory system: Good air entry bilaterally, no wheeze, rhonchi, positive crackles bilateral lower lobes CVS: S1-S2 positive, positive 2 out of 6 systolic murmur appreciated best at aorta Abdomen: Soft, nontender, nondistended, positive bowel sounds x4 Extremities: +2 pulses bilaterally radialis/ dorsalis pedis, no cyanosis, no edema Neuro: Awake alert oriented x3, cranial nerves II through XII grossly intact, muscular strength 5/5 bilateral upper and lower extremities Psych: Normal mood and affect G/U: No Gore --Prophylaxis VTE: IPC GI: None Lines: Peripheral, right radial Diet: Cardiorenal Plan: In/out: +1.2 L, urine output 511 Discontinue arterial line Continue with incentive spirometry Disposition as per vascular surgery This includes time spent evaluating patient, direct bedside care, chart review, placing orders, interpretation of diagnostic studies, discussion with consultants, patient, and family members, as well as other required patient management activities. This time is exclusive of all separately billable procedures, and teaching time and separate from and in addition to any other critical care service time. Please note the above document was generated using voice recognition software. It may contain grammatical, syntax or spelling errors. Subjective No acute events overnight. Pt's vitals have been stable, pain has been well controlled. Pt is up in chair with in the room at time of exam. Pt had finished his breakfast and reports feeling well. Pt states that throat soreness he noted yesterday has resolved. He denies chest pain, SOB, dizziness, abdominal pain, nausea, weakness or numbness in extremities. Review of Systems Constitutional: as per Subjective / HPI Physical Exam Constitutional: well developed and cooperative; no acute distress Eyes: PERRL, conjunctivae normal, anicteric sclerae ENMT: external ear and nose normal, oropharynx normal Neck: trachea midline, no thyromegaly Respiratory: normal respiratory effort, lungs clear to auscultation Auscultation: + crackles (at bilateral lower lobes); no wheezes Cardiovascular: Rate/Rhythm: regular rate and regular rhythm Heart Sounds: + murmur (systolic 3/6 heard at apex and left sternal border) Extremities: + edema (trace) Gastrointestinal (Abdomen): Inspection/Auscultation: abdomen not distended Percussion/Palpation: abdomen soft; abdomen nontender Musculoskeletal: no cyanosis or clubbing, extremities motor strength 5/5 Neurologic: PERRL, EOMI, accommodation nl, no face palsy, no dysarthria Cranial Nerves: normal facial strength Results & Data Results & Data Vital Signs (Past 12 Hours) Vital Signs Temp Pulse Pulse Resp BP Pulse Ox O2 Del Method 10/27/24 07:12 60 18 98 Room Air 10/27/24 06:00 53 L 14 122/60 92 10/27/24 05:00 58 L 13 94 10/27/24 04:52 36.5 C 10/27/24 04:15 61 20 93 10/27/24 04:00 119/64 10/27/24 03:51 60 13 93 10/27/24 03:00 56 L 15 94 10/27/24 02:03 74 12 128/62 91 10/27/24 01:03 60 17 94 10/27/24 01:00 63 17 95 10/27/24 00:33 36.6 C 10/27/24 00:00 68 20 120/60 10/27/24 00:00 68 10/26/24 23:00 68 17 93 10/26/24 22:03 71 16 94 10/26/24 22:00 134/67 10/26/24 21:51 79 17 92 10/26/24 21:03 76 18 94 Resident Activity Tracking Resident Involvement: Resident Care Provided Care Provided: Adult Hospital Medicine
[2024-10-27] MEDS ORDERED: NON-FORMULARY MEDICATION (Vitamin B12-Folic Acid 2,500-400 mcg Tablet,Disintegrating) PO SCH (09:00)
--- NOTE | 2024-10-27 09:05 | Surgery Progress Note ---
Date of Service October 27, 2024 Assessment & Plan (1) Carotid artery stenosis: Plan: Pt POD #1 after L TCAR, doing well post op. VSS. No complaints. Will d/c home today and see in office in 2 weeks. Admission and Anticipated Discharge Date Admission Date: October 26, 2024 Subjective 84 yo m POD #1 after uncomplicated L TCAR d/t symptomatic L ICA Stenosis, seen in f/u today. Pt states overall feeling well. Minimal discomfort in incisions. No new complaints. Ambulating in room, taking PO well. Review of Systems Review of Systems: All systems reviewed & are unremarkable except as noted in HPI & below Physical Exam Constitutional: WD/WN, vitals as above healthy appearing, cooperative and comfortable; not in distress Neck: trachea midline (L supraclavicular incision C/D/I, mild local ecchymosis, minimal edema.) Respiratory: normal respiratory effort, lungs clear to auscultation Auscultation: + diminished lung sounds Cardiovascular: Rate/Rhythm: regular rate and regular rhythm Vessels: posterior tibial pulses present, dorsalis pedis pulses present and radial pulses present; + abnormal peripheral pulses Extremities: normal capillary refill Gastrointestinal (Abdomen): Inspection/Auscultation: abdomen normal to inspection and normal bowel sounds Percussion/Palpation: abdomen soft; a bdomen nontender Musculoskeletal: no cyanosis or clubbing, extremities motor strength 5/5 Skin: no rashes, warm and dry no erythema Neurologic: moves all extremities and awake; no focal motor deficits and not confused Psychiatric: A+Ox3, euthymic affect Results & Data Vital Signs (Past 12 Hours) Vital Signs Temp Pulse Pulse Resp BP BP BP 10/27/24 08:47 65 17 139/70 10/27/24 08:00 36.6 C 75 20 129/58 L 122/42 L 10/27/24 07:12 60 18 10/27/24 06:00 53 L 14 122/60 10/27/24 05:00 58 L 13 10/27/24 04:52 36.5 C 10/27/24 04:15 61 20 10/27/24 04:00 119/64 10/27/24 03:51 60 13 10/27/24 03:00 56 L 15 10/27/24 02:03 74 12 128/62 10/27/24 01:03 60 17 10/27/24 01:00 63 17 10/27/24 00:33 36.6 C 10/27/24 00:00 68 20 120/60 10/27/24 00:00 68 10/26/24 23:00 68 17 10/26/24 22:03 71 16 10/26/24 22:00 134/67 10/26/24 21:51 79 17 10/26/24 21:03 76 18 Pulse Ox O2 Del Method 10/27/24 08:47 98 Room Air 10/27/24 08:00 97 Room Air 10/27/24 07:12 98 Room Air 10/27/24 06:00 92 10/27/24 05:00 94 10/27/24 04:52 10/27/24 04:15 93 10/27/24 04:00 10/27/24 03:51 93 10/27/24 03:00 94 10/27/24 02:03 91 10/27/24 01:03 94 10/27/24 01:00 95 10/27/24 00:33 10/27/24 00:00 10/27/24 00:00 10/26/24 23:00 93 10/26/24 22:03 94 10/26/24 22:00 10/26/24 21:51 92 10/26/24 21:03 94
--- NOTE | 2024-10-27 09:08 | Discharge Summary ---
Date of Service October 27, 2024 Admission HPI Per Admitting Provider Name: JASE CORDOVA Patient Number: [id number] : 1940 Date of Service: 10/15/2024 Chief Complaint: _Left eye amaurosis HPI: _Mr. Cordova is an elderly male who presents to Dr. Bullock's vascular surgery clinic today for an appointment to discuss recent symptoms of left eye amaurosis which occurred about 3 days ago. Patient is known to Dr. Bullock's practice for a right TCAR performed in September 2023. Patient states that he had stopped his aspirin and Plavix last week in preparation for an upcoming lumbar spine surgery that he was to have a few days ago. Less than 24 hours before his scheduled procedure, he developed a loss of the left lateral portion of his left eye vision which lasted for about 15 minutes or so before mostly resolving. It has not completely resolved. Patient states at this point he is sometimes seeing a shadow over his left eye almost as if someone is standing in the corner or walking past him, but there is nothing there when he turns his head. He is having some difficulty reading as he is unable to see the first numbers or first letters of what ever he is trying to read. He denies any other symptoms including facial droop, sudden onset confusion, difficulty speaking or swallowing, or other concerns. He was seen in the emergency department, who advised him to restart his DAPT and follow-up with ophthalmology. His primary care physician referred him back to our office for recommendations regarding his carotid disease, due to suspicions of amaurosis. Patient denies any other changes in his health since his last visit here few months ago, and states overall he is feeling well aside from this problem. CTA of [facility] neck performed at [facility] 2 days ago demonstrates a widely patent right ICA stent, and about 80% stenosis of his left ICA. Current Home Meds: (Last Updated 10/15 13:33) EPINEPHrine (EpiPen 2-Albino 0.3 mg injectable kit) 0.3 mg IM ONCE PRN: as needed for anaphylaxis albuterol (albuterol CFC free 90 mcg/inh MDI) 2 puff inhaled qid PRN: as needed for wheezing allopurinol 100 mg PO bid amLODIPine (amLODIPine 10 mg oral tablet) 10 mg PO Daily aspirin (aspirin 81 mg oral delayed release tablet) 81 mg PO Daily celecoxib (celecoxib 200 mg oral capsule) 200 mg PO Daily PRN: as needed for pain cholecalciferol (Vitamin D3) 25 mcg PO Daily clopidogrel (clopidogrel 75 mg oral tablet) 75 mg PO Daily gabapentin (gabapentin 100 mg oral capsule) TAKE ONE CAPSULE BY MOUTH THREE TIMES A DAY losartan 100 mg PO Daily methylPREDNISolone (methylPREDNISolone 4 mg oral tablet) TAKE 5 TABLETS BY MOUTH EVERY DAY FOR 3 DAYS, TAKE 4 TABLETS EVERY DAY FOR 3 DAYS, TAKE 3 TABLETS EVERY DAY FOR 3 DAYS, TAKE 2 TABLETS EVERY multivitamin with minerals (PreserVision AREDS 2 oral tablet, chewable) 2 tab PO Daily predniSONE (predniSONE 10 mg oral tablet) 10 mg PO Daily on hold while on medrol dose pack rosuvastatin (rosuvastatin 20 mg oral tablet) 20 mg PO Daily Allergies and Sensitivities: Bee stings(syncope) Bee stings(anaphylactic) Past Medical History: Problems: Notalgia paresthetica Seborrheic keratoses Internal carotid artery stent present Bilateral carotid artery stenosis Peripheral arterial disease (atherosclerosis) 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 No Orthostatic Data Available Height and Weight: Last Updated 02/13/23 09:44 Date BMI Wt(kg) Wt(lb) Method Ht(cm) (ft-in) Method 02/13/23 76.1 167 Standing Scale 09/28/21 79 174 Standing Scale Heights and Weights are the last 3 documented. Physical Exam Constitutional: In general patient is a healthy-appearing well-nourished well- developed elderly male in no distress. Is alert and oriented with any focal deficits. His carotids do demonstrate a faint bruit. His heart is regular, lungs are decreased but clear. Radial pulses are +3. Abdomen soft nontender with no active bowel sounds in 4 quadrants. Lower extremity distal pulses are +1. He has brisk capillary refill and no sign of distal ischemia. ASSESSMENT: _ PLAN: _ 1 ) _symptomatic left ICA stenosis Patient does have a known at least 80% stenosis of his left ICA, and now with left eye vision changes and concerning for amaurosis versus central retinal artery occlusion. Due to the severity of his left ICA stenosis and current symptoms, Dr. Bullock recommends that patient undergo a left TCAR procedure. The procedure risks benefits and alternatives were discussed with the patient by myself at Dr. Bullock's request. Patient expressed understanding and agreement to proceed. This will occur in the next 1 to 2 weeks at the patient's convenience. He is to remain on his DAPT up through surgery. He is advised to call any questions or concerns. He is agreeable to this plan. Thank you for letting us participate in the care of this patient. I have personally [id number]___ minutes performing ahro-jq-vyqy and zhz-iacd-in-face activities on this date of service.Time does not include separately reported services. Activities Include: x__ review of the medical record _x_ obtaining a history x__ physical exam/evaluation __ review labs _x_ counseling/educating patient/family/caregiver __ discussion/referral to other healthcare professional x__ documenting care in the medical record __ independent interpretation of results _x_ communication of results to patient/family/caregiver _x_ coordination of care Signature Line Electronic Signature on File CC: Jayson Valenzuela MD [facility] [address] [place] [address] * Electronically Reviewed/Signed by: Concepción Harman PA-C Author Signature Dt/Tm:10/15/2024 02:14 PM [facility] [place] [address], [address] [place] [address] Result Type: HVI Outpt Note Date of Service: October 15, 2024 14:08 EDT Authorization Status: Final Author or Import Date: EVERETT Harman Lynn on October 15, 2024 14:14 EDT Verified By: EVERETT Harman Lynn on October 15, 2024 14:14 EDT Encounter info: [id number], [facility], Clinic, 10/15/2024 - 10/15/2024 Admission Exam Per Admitting Provider Constitutional: In general patient is a healthy-appearing well-nourished well- developed elderly male in no distress. Is alert and oriented with any focal deficits. His carotids do demonstrate a faint bruit. His heart is regular, lungs are decreased but clear. Radial pulses are +3. Abdomen soft nontender with no active bowel sounds in 4 quadrants. Lower extremity distal pulses are +1. He has brisk capillary refill and no sign of distal ischemia. Principal Diagnosis 1. s/p L TCAR 2. Symptomatic L ICA stenosis Discharge Exam Constitutional WD/WN, vitals as above healthy appearing, cooperative and comfortable; not in distress Neck trachea midline (L supraclavicular incision C/D/I, mild local ecchymosis, minimal edema.) Respiratory normal respiratory effort, lungs clear to auscultation Auscultation: + diminished lung sounds Cardiovascular Rate/Rhythm: regular rate and regular rhythm Vessels: posterior tibial pulses present, dorsalis pedis pulses present and radial pulses present; + abnormal peripheral pulses Extremities: normal capillary refill Gastrointestinal (Abdomen) Inspection/Auscultation: abdomen normal to inspection and normal bowel sounds Percussion/Palpation: abdomen soft; abdomen nontender Musculoskeletal no cyanosis or clubbing, extremities motor strength 5/5 Skin no rashes, warm and dry no erythema Neurologic moves all extremities and awake; no focal motor deficits and not confused Psychiatric A+Ox3, euthymic affect Discharge Data Allergies Allergy/AdvReac Type Severity Reaction Status Date / Time venom-honey bee Allergy Severe Passed out Verified 10/26/24 06:51 No Known Drug Allergies Allergy . Verified 10/26/24 06:51 Consultations 10/26/24 11:40 Consult Thermal Cutting Machine Operator Routine Procedures Performed Operation Date: 10/26/24 08:00 Actual Procedures p Left Transcarotid Artery Revascularization, Ultrasound of Right Common Femoral Vein(Left) - Neeraj Bullock MD Ordered Studies 10/26/24 07:16 EV angio carotid cerv LT Routine US EV guide vascular access Routine Hospital Course (1) Carotid artery stenosis: Pt POD #1 after L TCAR, doing well post op. VSS. No complaints. Will d/c home today and see in office in 2 weeks. Total Time Total Time Spent Total Time Spent (In Minutes): 0 Discharge Plan Discharge Items Patient Disposition: Home - Self-Care Reason For Visit: Left Internal Carotid Artery Stenosis Discharge Diagnosis: 1. s/p L TCAR 2. Symptomatic L ICA stenosis Activity: Per Instructions section Non-emergency contact: Primary Care Provider and Surgeon Call non-emergency contact if: you have any medication questions, your symptoms worsen, your pain is not controlled, you have a fever, your wound has increased redness and your wound has increased drainage Follow-up/Referrals: Jayson Valenzuela MD [Primary Care Provider] - (Follow up with your PCP within 2 weeks) Neeraj Bullock MD [Physician] - (Follow up with Dr Bullock or Concepción Harman PA-C, in 2 weeks. ) Diet: Heart Healthy [facility] Attending Provider Instructions: SPECIAL CARE INSTRUCTIONS: Diet: * You may return to previous diet. Medications: * Continue to take Aspirin, plavix, and statin medication as directed. DO NOT STOP THESE MEDICATIONS WITHOUT SPEAKING TO DR BULLOCK'S OFFICE Incision Care: * You may shower, but do not rub incision. You may let the warm soapy water run over it. Be sure to dry the incision well after bathing. * Do not shave directly over the incision until it is healed. * DO NOT IMMERSE THE INCISION IN A TUB/POOL/etc. UNTIL HEALED. Restrictions: * Do not drive if you are still taking any narcotic pain medication. * Do not lift anything heavier than a gallon of milk for one week after going home. Possible Complications: * Numbness - It is normal to have some numbness around the incision. Numbness can extend beyond the incision to areas of the neck, ear and face. The numbness is due to bruising of nerves during the surgery and will gradually improve over a period of months. * Hoarseness/Difficulty Speaking and Swallowing - The bruising of nerves in the neck can also cause a hoarse voice, difficulty speaking or swallowing. This may improve over time, HOWEVER, if it continues for more than a few days please contact our office ([phone]). * Excessive Swelling - There will be some swelling immediately after surgery which usually resolves within one week. If you notice that the swelling is getting worse, notify your surgeon ([phone]). * Drainage/Bleeding - If there is any drainage or bleeding, it should be a very small amount (less than a teaspoon per day). If you have excessive bleeding or drainage from the incision, call your surgeon ([phone]) right away. ACTIVATION OF EMERGENCY MEDICAL SYSTEM: Call 911, immediately, if you experience any of the following: Warning Signs and Symptoms of Stroke: * Sudden numbness or weakness of the face, arm or leg, especially on one side of the body * Sudden confusion, trouble speaking or understanding * Sudden trouble seeing in one or both eyes * Sudden trouble walking, dizziness, loss of balance or coordination * Sudden severe headache with no cause Do not delay calling 911 if you experience any warning signs or symptoms of a stroke. Delay in seeking medical attention may affect what treatments can be given to you. Risk Factors for Stroke: You can reduce your chances of stroke by working with your medical provider to adopt a healthy lifestyle. Some specific ways to lower your chance of stroke are: * If you are a smoker, now is the time to stop smoking cigarettes * If you are diabetic, improve the control of your blood sugars * Avoid excessive amounts of alcohol * Control high blood pressure * Lose weight if you are overweight * Be sure to lead an active lifestyle * Eat a healthy diet low in salt, cholesterol and fat You should know about other risk factors for stroke that you are unable to control. These include: * Age 55 years or older * Male gender * Certain racial groups: , or / * Family History of Stroke, Mini stroke or Heart Attack * Sickle Cell Disease You will be receiving a call from the Vascular Surgery Nurse after you are discharged. FOLLOW UP VISIT: It is important for you to keep your follow up appointments with your medical provider. Keep any scheduled doctor appointments. Pending Studies at Discharge: No Stand-Alone Forms: My [facility], Smoking Cessation Medications and DC Order Prescriptions: Continued losartan 100 mg tablet 100 mg PO QAM Qty: 90 3RF aspirin [Adult Aspirin Regimen] 81 mg tablet,delayed release (DR/EC) 81 mg PO QAM Rx Instructions: 10/12/24 THIS MED IS CURRENTLY ON HOLD FOR PENDING SURGERY ON 10/13/24. gabapentin 100 mg capsule 100 mg PO TID Qty: 300 5RF celecoxib 200 mg capsule 200 mg PO BID Qty: 60 11RF epinephrine 0.3 mg/0.3 mL auto-injector 0.3 mg IM Q10M PRN (Reason: BEE STINGS) Qty: 2 0RF albuterol sulfate 90 mcg/actuation HFA aerosol inhaler 1 inh inhalation QID Qty: 8.5 5RF amlodipine 10 mg tablet 10 mg PO QAM Qty: 90 3RF PreserVision AREDS-2 [phone] sn-xtoy-ye-mg Capsule 2 tab PO QAM Rx Instructions: 10/12/24 THIS MED CURRENTLY ON HOLD FOR PENDING SURGERY ON 10/13/24. vitamin W01-dnjjn acid 2,500-400 mcg Tablet,Disintegrating 1 tab PO DAILY methylprednisolone 4 mg tablet 4 mg PO QAM Rx Instructions: 20mg daily for 3 days, 16 mg daily for 3 days, 12 mg daily for 3 days, 8 mg daily for 3 days, 4 mg daily for 3 days clopidogrel 75 mg tablet 75 mg PO QAM Rx Instructions: 10/12/24 : THIS MED CURRENTLY ON HOLD FOR PENDING SURGERY ON 10/13/24. rosuvastatin 20 mg tablet 20 mg PO QAM Discharge Orders: Discharge Order (Routine); Ordered 10/27/24 Ordered By: Concepción Harman Admission Data Admit Date/Time: 10/26/24 07:37 Attending Provider: Neeraj Bullock Admit Provider: Neeraj Bullock Primary Care Provider: Jayson Valenzuela Other Providers: Cyrus Olivares; Sergio Marie; Abdirahman Lucero; Bahman Mcnally; Shirley Gallegos; Isma Chao; Yolis Lara; Jonathan Hess
--- NOTE | 2024-10-27 11:32 | Billing Data ---
Date of Service October 27, 2024 [place] [address] SUB INP/OBS CARE MIN Patient Type Established
== END 2024-10-27 09:44 | disposition home or self-care (01) | DRG 34 ==
LOC: ASU 06:34 → PACUINP 07:37 → 1E 11:31
PROC: EV.TCAR (2024-10-26 08:00)

== ENCOUNTER 2025-04-13 08:57 | Inpatient (IN) ==
--- NOTE | 2023-08-20 09:23 | PAT Medication Instructions ---
Medication Instructions Date of Service August 20, 2023 Home Medications Medication Instructions Recorded bacitracin 500 unit/gram topical 1 applic topical BID #14 grams 07/26/20 ointment allopurinol 100 mg tablet 100 mg PO BID #180 tabs 01/18/23 losartan 100 mg tablet 100 mg PO QAM #90 tabs 01/18/23 meloxicam 15 mg tablet 15 mg PO DAILY PRN pain #90 tabs 01/18/23 fluticasone 100 mcg-salmeterol 50 1 ea inhalation BID #180 ea 04/24/23 mcg/dose blistr powdr for inhalation (Advair Diskus) gabapentin 100 mg capsule 100 mg PO TID #90 caps 06/17/23 aspirin 81 mg tablet,delayed release (Adult Aspirin Regimen) 81 mg PO QAM epinephrine 0.3 mg/0.3 mL injection, auto-injector 0.3 mg IM Q10M PRN BEE STINGS albuterol sulfate 90 mcg/actuation aerosol inhaler 1 - 2 inh inhalation UD PRN ASTHMA vit C 250 mg-vit E 90 mg-zinc 40 mg-copper 1 gm-bnheol-qxvute capsule (PreserVision AREDS-2) 2 tab PO QAM bacitracin 500 unit/gram topical ointment 1 applic topical BID allopurinol 100 mg tablet 100 mg PO BID losartan 100 mg tablet 100 mg PO QAM meloxicam 15 mg tablet 15 mg PO DAILY PRN pain fluticasone 100 mcg-salmeterol 50 mcg/dose blistr powdr for inhalation (Advair Diskus) 1 ea inhalation BID gabapentin 100 mg capsule 100 mg PO TID Continue as directed epinephrine 0.3 mg/0.3 mL injection, auto-injector 0.3 mg IM Q10M PRN BEE STINGS ASK your surgeon for instructions meloxicam 15 mg tablet 15 mg PO DAILY PRN pain ASK your prescriber and surgeon aspirin 81 mg tablet,delayed release (Adult Aspirin Regimen) 81 mg PO QAM STOP taking 2 weeks before surgery (or as soon as possible if surgery is within 2 weeks) vit C 250 mg-vit E 90 mg-zinc 40 mg-copper 1 [id number]-[id number] capsule (PreserVision AREDS-2) 2 tab PO QAM STOP taking 24 hours before surgery bacitracin 500 unit/gram topical ointment 1 applic topical BID DO NOT take the morning of surgery losartan 100 mg tablet 100 mg PO QAM Take morning of surgery With a small sip of water, OTHERWISE NOTHING TO EAT OR DRINK AFTER MIDNIGHT: albuterol sulfate 90 mcg/actuation aerosol inhaler 1 - 2 inh inhalation UD PRN ASTHMA (use if needed; please bring rescue inhaler with you to hospital day of surgery if possible) allopurinol 100 mg tablet 100 mg PO BID fluticasone 100 mcg-salmeterol 50 mcg/dose blistr powdr for inhalation (Advair Diskus) 1 ea inhalation BID gabapentin 100 mg capsule 100 mg PO TID Take evening before surgery albuterol sulfate 90 mcg/actuation aerosol inhaler 1 - 2 inh inhalation UD PRN ASTHMA (if needed) allopurinol 100 mg tablet 100 mg PO BID fluticasone 100 mcg-salmeterol 50 mcg/dose blistr powdr for inhalation (Advair Diskus) 1 ea inhalation BID gabapentin 100 mg capsule 100 mg PO TID Other Notes If you have any questions please call us at [phone] or [phone] or [phone] or [phone]
--- NOTE | 2023-08-26 09:51 | Anesthesiology Consultation ---
Date of Service August 26, 2023 Assessment & Plan (1) Encounter for pre-operative examination: Chart Review Chart Review: Acceptable Risk for Surgery (pending DOS coags ) and Patient seen in Pre Admission Testing - Check coags AM DOS Per PAT appt on 08/26/23, no recent illness/disease exposures, illness related symptoms, or recent illness/disease positive tests. Will leave to surgeon's discretion if preop Covid testing needed Teaching & Discussion Pre-Anesthesia Teaching/Discussion Notes: Instructed NPO after midnight before surgery,except medications with 15 cc of water. Medication instructions provided according to the [facility] guidelines. History Surgery Operation Date: 09/24/23 07:15 Proposed Procedures p L3-L4 and L4-L5 Lumbar Decompression - Seb Perez MD Height/Weight Height: 5 ft 9 in Weight: 81.3 kg Allergies Allergy/AdvReac Type Severity Reaction Status Date / Time venom-honey bee Allergy Severe passed out Verified 08/16/23 11:24 No Known Drug Allergies Allergy Verified 08/16/23 11:24 Medications Home Medications Medication Instructions Recorded Confirmed Last Taken aspirin 81 mg tablet,delayed 81 mg PO QAM 06/11/19 08/16/23 10/13/20 release (Adult Aspirin Regimen) epinephrine 0.3 mg/0.3 mL 0.3 mg IM Q10M PRN BEE STINGS 06/11/19 08/16/23 Unknown injection, auto-injector albuterol sulfate 90 mcg/actuation 1 - 2 inh inhalation UD PRN ASTHMA 07/19/20 08/16/23 08/30/20 aerosol inhaler vit C 250 mg-vit E 90 mg-zinc 40 2 tab PO QAM 07/19/20 08/16/23 10/13/20 mg-copper 1 zu-nywqlp-eklldx capsule (PreserVision AREDS-2) bacitracin 500 unit/gram topical 1 applic topical BID #14 grams 07/26/20 08/16/23 10/13/20 ointment allopurinol 100 mg tablet 100 mg PO BID #180 tabs 01/18/23 08/16/23 Unknown losartan 100 mg tablet 100 mg PO QAM #90 tabs 01/18/23 08/16/23 Unknown meloxicam 15 mg tablet 15 mg PO DAILY PRN pain #90 tabs 01/18/23 08/16/23 Unknown fluticasone 100 mcg-salmeterol 50 1 ea inhalation BID #180 ea 04/24/23 08/16/23 Unknown mcg/dose blistr powdr for inhalation (Advair Diskus) gabapentin 100 mg capsule 100 mg PO TID #90 caps 06/17/23 08/16/23 Unknown Past Medical History Medical History Asthma well controlled, has not had a flare up since ~2019. Bee sting allergy Gout No recent issues History of COVID-19 08/2019 + asymptomatic- no residual issues Hypertension Spinal stenosis of lumbar region Exercise / Class Metabolic Activity II 4-5 Yardwork/Stairs/Walk up hill (one flight of stairs- no chest pain or SOB ) Past Family History Family History Sister Diabetes Breast cancer Lung cancer Father Coronary heart disease Alcohol abuse Stroke Mother Alcohol abuse Denies family history of Ovarian cancer Prostate cancer Myocardial infarction Colorectal cancer Past Surgical History Surgical History History of appendectomy History of bilateral cataract extraction History of colonoscopy S/P epidural steroid injection Past Anesthesia History No Hx of Anesthesia Complications and No Family Hx of Anesthesia Complications History of PONV No Hx of PONV and No Hx of Motion Sickness Social History Smoking Status: Former smoker Do You Dip or Chew Tobacco: No Smoking End Date: Hx Alcohol Use: Yes Alcohol type: beer alcohol intake frequency: a few times a month Hx Substance Use: No substance use type: does not use Review of Systems - Snoring - no hx of sleep study Patient denies chest pain, shortness of breath, dyspnea on exertion, reflux, cough, wheezing, palpitations. No hx of seizures, stroke, ND. No hx of blood clots or blood transfusions Physical Exam Vital Signs VITALS BP 152/68 (manually) P 65 TEMP 98.2 SP02 96% RESP 16 Constitutional no acute distress ENMT Mouth: no TMJ clicking Thyromental Distance: > or= 3.5 Finger Breadths (3.5) Mallampati Class: II Top right front cap Missing molar Neck neck extension not limited Respiratory normal respiratory effort; no respiratory distress Auscultation: lungs clear to auscultation bilaterally; no wheezes Cardiovascular Rate/Rhythm: regular rate and regular rhythm Heart Sounds: + murmur (I-II/ murmur ) Vessels: no carotid bruit (Murmur barely audible- okay to proceed from anesthesia standpoint after discussion with Dr. Kolb- patient being done under [place]) Musculoskeletal Spine: no pain with cervical ROM Extremities: extremities normal to inspection Psychiatric Orientation: alert Lab Results Anesthesia Preop Results Results Anesthesia Widget: WBC 7.06 K/ul (4.8-10.8) 08/26/23 Hgb 11.7 g/dl (14.0-18.0) L 08/26/23 Hct 35.8 % (42.0-52.0) L 08/26/23 Plt 242 K/uL (130-400) 08/26/23 Na 140 mmol/L (136-145) 08/26/23 K 4.7 mmol/L (3.5-5.1) 08/26/23 Cl 109 mmol/L (98-107) H 08/26/23 CO2 27 mmol/L (21-32) 08/26/23 BUN 29 mg/dl (6-23) H 08/26/23 Creat 1.36 mg/dl (0.6-1.4) 08/26/23 Glucose Level 101 mg/dl (70-99(Fasting)) H 08/26/23 PT 10.6 Seconds (9.0-12.0) 08/26/23 PTT 36 Seconds (21-31) H 08/26/23 INR 1.0 (0.9-1.1) 08/26/23 Blood Type O Positive 08/26/23 Antibody Screen NEGATIVE 08/26/23 Testing Laboratory Results - Mild anemia- chronic and stable x years - Elevated PTT - discussed with Dr Kolb- will recheck DOS - surgeon's office informed Electrocardiogram Date: 08/26/23 Sinus rhythm with first-degree AV block at 60 bpm Otherwise normal EKG per cardio Chest X-Ray Date: 08/26/23 Findings: + NAD
--- NOTE | 2024-09-16 10:45 | PAT Medication Instructions ---
Medication Instructions Date of Service September 16, 2024 Home Medications Medication Instructions Recorded allopurinol 100 mg tablet 100 mg PO BID #180 tabs 12/23/23 celecoxib 200 mg capsule 200 mg PO BID #60 caps 02/27/24 clopidogrel 75 mg tablet 75 mg PO DAILY #30 tabs 02/27/24 losartan 100 mg tablet 100 mg PO QAM #90 tabs 02/27/24 gabapentin 100 mg capsule 100 mg PO TID #300 caps 05/13/24 albuterol sulfate 90 mcg/actuation 1 inh inhalation QID #8.5 grams 09/14/24 aerosol inhaler amlodipine 10 mg tablet 10 mg PO QAM #90 tabs 09/14/24 epinephrine 0.3 mg/0.3 mL 0.3 mg (0.3 mL) IM Q10M PRN BEE 09/14/24 injection, auto-injector STINGS #2 ea aspirin 81 mg tablet,delayed release (Adult Aspirin Regimen) 81 mg PO QAM vit C 250 mg-vit E 90 mg-zinc 40 mg-copper 1 hc-yxufjy-umsdah capsule (PreserVision AREDS-2) 2 tab PO QAM allopurinol 100 mg tablet 100 mg PO BID celecoxib 200 mg capsule 200 mg PO BID clopidogrel 75 mg tablet 75 mg PO DAILY losartan 100 mg tablet 100 mg PO QAM gabapentin 100 mg capsule 100 mg PO TID albuterol sulfate 90 mcg/actuation aerosol inhaler 1 inh inhalation QID amlodipine 10 mg tablet 10 mg PO QAM cyanocobalamin (vitamin B-12) 1 tab PO QAM epinephrine 0.3 mg/0.3 mL injection, auto-injector 0.3 mg (0.3 mL) IM Q10M PRN BEE STINGS prednisone 10 mg tablet 10 mg PO QAM rosuvastatin 5 mg tablet 5 mg PO QPM Continue as directed epinephrine 0.3 mg/0.3 mL injection, auto-injector 0.3 mg (0.3 mL) IM Q10M PRN BEE STINGS (if needed) ASK your surgeon for instructions celecoxib 200 mg capsule 200 mg PO BID ASK your prescriber and surgeon aspirin 81 mg tablet,delayed release (Adult Aspirin Regimen) 81 mg PO QAM clopidogrel/Plavix 75 mg tablet 75 mg PO DAILY STOP taking 2 weeks before surgery (or as soon as possible if surgery is within 2 weeks) vit C 250 mg-vit E 90 mg-zinc 40 mg-copper 1 yz-dfhief-geniio capsule (PreserVision AREDS-2) 2 tab PO QAM DO NOT take the morning of surgery losartan 100 mg tablet 100 mg PO QAM cyanocobalamin (vitamin B-12) 1 tab PO QAM Take morning of surgery With a small sip of water, OTHERWISE NOTHING TO EAT OR DRINK AFTER MIDNIGHT: allopurinol 100 mg tablet 100 mg PO BID gabapentin 100 mg capsule 100 mg PO TID albuterol sulfate 90 mcg/actuation aerosol inhaler 1 inh inhalation QID (if needed) amlodipine 10 mg tablet 10 mg PO QAM prednisone 10 mg tablet 10 mg PO QAM Please bring rescue inhaler with you to hospital day of surgery if possible. Take evening before surgery allopurinol 100 mg tablet 100 mg PO BID gabapentin 100 mg capsule 100 mg PO TID albuterol sulfate 90 mcg/actuation aerosol inhaler 1 inh inhalation QID rosuvastatin 5 mg tablet 5 mg PO QPM Other Notes If you have any questions please call us at [phone] or [phone] or or [phone]
--- NOTE | 2024-09-23 12:51 | Anesthesiology Consultation ---
Date of Service September 23, 2024 Assessment & Plan (1) Encounter for pre-operative examination: Chart Review Chart Review: Acceptable Risk for Surgery and Patient seen in Pre Admission Testing -Discussed with Dr. Robledo- patient can proceed without further evaluation at this time Per PAT appt on 09/23/24, no recent illness/disease exposures, illness related symptoms, or recent illness/disease positive tests. Will leave to surgeon's discretion if preop Covid testing needed Patient seen by PCP 09/14/24= Suffered TIA in August 2023. Found to have carotid disease and MRI of brain showed right occipital lobe chronic cortical infarction. Also area of right basal ganglion that showed some abnormalities associated with chronic small vessel ischemia. S/p TCAR to right ICA 10/13/14. "Jeff resendiz does have spinal surgery scheduled for next next month on 10/13/2024" Stenosis of right ICA- continue DAPT x one year. Should stop Plavix and ASA one week prior to surgery and then resume ASA afterwards. PAD- continue walking as tolerated. Spinal stenosis- continue Celebrex- continue prednisone every other day and stop after a week. HTN- continue meds. HLD- continue statin. Asthma- albulterol PRN. Gout- Allopurinol Patient seen by vascular surgery 06/10/24= Patient seen for follow-up on right carotid disease status post TCAR, PAD. Continues to be doing well following TCAR procedure. Incision is completely healed at this point without issue. 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 No wounds on either foot. No significant symptoms of claudication. On review of noninvasive imaging his carotid duplex demonstrated a widely patent right carotid stent. His lower extremity duplex demonstrated multifocal peripheral artery disease to the bilateral lower extremities, there is a new left-sided SFA stenosis that is 70 to 99%. Right LUZ MARINA 0.75 and left LUZ MARINA 0.79decreased from 0.95. "With regards to his cerebrovascular disease, we will plan to see him back in the clinic in 6 months times with repeat ultrasound. Should continue aspirin and statin and Plavix. Did discuss the potential of an upcoming spine surgery. We did discuss that if needed Plavix could be held for this procedure and resumed once safe postoperatively. In regards to PADno wounds or rest pain at this time. Furthermore does not seem to have significant claudication symptoms. If he should have developed wounds that are not healing, pain at rest or significant burning/cramping in his legs that is debilitating he should reach out to office for further evaluation. Otherwise we will continue conservative management with aspirin, statin, ambulation. Right TCAR 10/14/23= Done under [place] with Grade 2 view with MAC #3. ETT #7.5. DL x 1. Atraumatic Teaching & Discussion Pre-Anesthesia Teaching/Discussion Notes: Instructed NPO after midnight before surgery,except medications with 15 cc of water. Medication instructions provided according to the PAT guidelines. History Surgery Operation Date: 09/24/23 11:05 Proposed Procedures p L3-L4 and L4-L5 Lumbar Decompression - Seb Perez MD Operation Date: 10/13/24 07:30 Proposed Procedures p L4-L5, L5-S1 Laminectomy - Seb Perez MD Height/Weight Height: 5 ft 9 in Weight: 82.9 kg Allergies Allergy/AdvReac Type Severity Reaction Status Date / Time venom-honey bee Allergy Severe passed out Verified 09/21/24 10:46 No Known Drug Allergies Allergy Verified 09/21/24 10:46 Medications Home Medications Medication Instructions Recorded Confirmed Last Taken aspirin 81 mg tablet,delayed 81 mg PO QAM 06/11/19 09/14/24 10/13/23 08:00 release (Adult Aspirin Regimen) vit C 250 mg-vit E 90 mg-zinc 40 2 tab PO QAM 07/19/20 09/14/24 09/30/23 mg-copper 1 [id number] capsule (PreserVision AREDS-2) allopurinol 100 mg tablet 100 mg PO BID #180 tabs 12/23/23 09/14/24 Unknown celecoxib 200 mg capsule 200 mg PO BID #60 caps 02/27/24 09/14/24 Unknown clopidogrel 75 mg tablet 75 mg PO DAILY #30 tabs 02/27/24 09/14/24 Unknown losartan 100 mg tablet 100 mg PO QAM #90 tabs 02/27/24 09/14/24 Unknown gabapentin 100 mg capsule 100 mg PO TID #300 caps 05/13/24 09/14/24 Unknown albuterol sulfate 90 mcg/actuation 1 inh inhalation QID #8.5 grams 09/14/24 09/14/24 Unknown aerosol inhaler amlodipine 10 mg tablet 10 mg PO QAM #90 tabs 09/14/24 09/14/24 Unknown cyanocobalamin (vitamin B-12) 1 tab PO QAM 09/14/24 09/14/24 Unknown epinephrine 0.3 mg/0.3 mL 0.3 mg (0.3 mL) IM Q10M PRN BEE 09/14/24 09/14/24 Unknown injection, auto-injector STINGS #2 ea prednisone 10 mg tablet 10 mg PO QAM 09/14/24 09/14/24 Unknown rosuvastatin 5 mg tablet 5 mg PO QPM 09/14/24 09/14/24 Unknown Past Medical History Medical History (Updated 09/23/24 @ 13:22 by Jenniffer Vega PA-C) AF (amaurosis fugax) ~08/2023, "how they found that he had the carotid artery stenosis, had mini- stroke" Aortic stenosis Mild to moderate per 09/2023 ECHO Asthma well controlled, has not had a flare up since ~2019. Carotid artery disease - 80% stenosis to right ICA per 08/2023 neck CTA - s/p right TCAR 09/2023 - 50-56% stenosis to left ICA per Cerebrovascular duplex 11/2023 Family history of reaction to anesthesia sister had a reaction to Versed, causing hallucinations History of anemia History of COVID-19 08/2019 + asymptomatic- no residual issues History of hypertension History of peripheral arterial disease Bilateral LE PAD. Per 05/2024 vasc note- left sided SFA stenosis 70-99%- conservative management (no wounds or symptoms currently) Hx of gout no flares for at least 10 years Hx of hyperlipidemia Hx-TIA (transient ischemic attack) - loss of vision from right eye ~09/19/23 - Brain MRI 09/2023- MRI of brain showed right occipital lobe chronic cortical infarction. Also area of right basal ganglion that showed some abnormalities associated with chronic small vessel ischemia Prediabetes Hgb A1C 6.4 on 08/13/24 Exercise / Class Metabolic Activity II 4-5 Yardwork/Stairs/Walk up hill (one flight of stairs- no chest pain or SOB ) Past Family History Family History Sister Diabetes Breast cancer Lung cancer Father Coronary heart disease Alcohol abuse Stroke Mother Alcohol abuse Denies family history of Ovarian cancer Prostate cancer Myocardial infarction Colorectal cancer Past Surgical History Surgical History H/O transcarotid artery revascularization (TCAR) 09/2023, right side, w/dr. laguerre History of appendectomy History of bilateral cataract extraction History of colonoscopy Hx of tonsillectomy S/P epidural steroid injection Past Anesthesia History No Hx of Anesthesia Complications and No Family Hx of Anesthesia Complications (with exception to sister- hallucinations with Versed ) History of PONV No Hx of PONV and No Hx of Motion Sickness Social History Smoking Status: Former smoker Do You Dip or Chew Tobacco: No Smoking End Date: Hx Alcohol Use: Yes Alcohol type: beer alcohol intake frequency: holidays/special occasions only Hx Substance Use: No substance use type: does not use Review of Systems Patient denies chest pain, shortness of breath, dyspnea on exertion, reflux, cough, wheezing, palpitations. No hx of seizures, SC, apnea/snoring. No hx of blood clots or blood transfusions Physical Exam Vital Signs VITALS BP 151/63 P 83 TEMP 97.8 SP02 97% RESP 16 Constitutional no acute distress ENMT Mouth: no TMJ clicking Thyromental Distance: > or= 3.5 Finger Breadths (3.5) Mallampati Class: I Missing side teeth and molars Caps to side teeth Neck + thick neck (mild); neck extension not limited Respiratory normal respiratory effort; no respiratory distress Auscultation: lungs clear to auscultation bilaterally; no wheezes Cardiovascular Heart Sounds: no murmur Vessels: no carotid bruit Extra beats noted with rhythm- controlled rate Musculoskeletal Spine: no pain with cervical ROM Extremities: extremities normal to inspection Psychiatric Orientation: alert Lab Results Anesthesia Preop Results Results Anesthesia Widget: WBC 8.71 K/ul (4.8-10.8) 09/23/24 Hgb 11.2 g/dl (14.0-18.0) L 09/23/24 Hct 34.7 % (42.0-52.0) L 09/23/24 Plt 247 K/uL (130-400) 09/23/24 Na 140 mmol/L (136-145) 09/23/24 K 4.3 mmol/L (3.5-5.1) 09/23/24 Cl 106 mmol/L (98-107) 09/23/24 CO2 28 mmol/L (21-32) 09/23/24 BUN 31 mg/dl (6-23) H 09/23/24 Creat 1.34 mg/dl (0.6-1.4) 09/23/24 Glucose Level 100 mg/dl (70-99(Fasting)) H 09/23/24 PT 10.3 Seconds (9.0-12.0) 09/23/24 PTT 29 Seconds (21-31) 09/23/24 INR 0.9 (0.9-1.1) 09/23/24 TSH 0.699 uIu/ml (0.300-4.500) 08/13/24 HA1c 6.4 % (4.5-5.6) H 08/13/24 Blood Type O Positive 09/23/24 Antibody Screen NEGATIVE 09/23/24 Testing Laboratory Results *Mild anemia - stable since at least 2019 Electrocardiogram Date: 09/23/24 SR with occ PVCs at 77bpm Left axis deviation Inferior infarct, age undetermined When compared to EKG from Aug 26, 2023- PVCs are now present, AR interval has decreased, inferior infarct is now present per cardio ("Inferior infarct cited on or before Dec 25, 2004" noted on February 28, 2020 EKG) Chest X-Ray Date: 09/23/24 Findings: + NAD Echocardiogram Date: 10/10/23 EF: 60-65% LV Function: normal RWMA: + none Other Findings: + diastolic dysfunction (Grade I); no LVH Valvular Disease: + MR (mild) Normal chamber dimensions. Mild to moderate aortic stenosis (JOSH 1.2cm2; AV max velocity 2.609 m/s; AV mean PG 12.1mmHg) Normal estimated heart pressures. No cardiac source of emboli are noted Other Testing Cerebrovascular Duplex 12/11/23= Patient distal common carotid artery, carotid bulb and proximal ICA with no evidence of restenosis. 50-59% stenosis in left ICA. No significant stenosis in external carotid arteries bilaterally. Antegrade flow in both vertebral arteries. Normal flow in bilateral proximal subclavian arteries MRI brain 10/02/23= Numerous foci of increased signal intensity are seen in the white matter in the cerebral hemispheres on the FLAIR images along with a small focus of increased signal intensity peripherally in the right basal ganglia pro bably due to chronic small vessel ischemia. A small area of increased signal intensity is seen peripherally in the right occipital lobe posteriorly on the FLAIR images probably due to a small area of chronic cortical infarction. A 5 mm focus of increased signal intensity is seen in the right basal ganglia on the T1 weighted images which does not appear to represent calcification based on an outside CT angiogram. Diabetic stratopathy could have this appearance however this tends to be more extensive. A follow-up examination might provide additional information. Ventricular system and cortical sulci are prominent consistent with moderate atrophy. No acute intracranial pathology is demonstrated Head CTA 09/20/23= No acute intracranial findings. No central vessel occlusion. No intracranial aneurysm. Mild multifocal stenoses within the intracranial vessels. Right maxillary sinus mucosal thickening with secretions.
--- NOTE | 2025-02-16 09:04 | PAT Medication Instructions ---
Medication Instructions Date of Service February 16, 2025 Home Medications Medication Instructions Recorded amlodipine 10 mg tablet 10 mg PO QAM #90 tabs 09/14/24 epinephrine 0.3 mg/0.3 mL 0.3 mg (0.3 mL) IM Q10M PRN BEE 09/14/24 injection, auto-injector STINGS #2 ea losartan 100 mg tablet 100 mg PO QAM #90 tabs 10/15/24 prednisone 10 mg tablet 10 mg PO QAM #90 tabs 11/26/24 allopurinol 100 mg tablet 100 mg PO BID #180 tabs 12/02/24 rosuvastatin 20 mg tablet 20 mg PO QAM #90 tabs 12/02/24 gabapentin 100 mg capsule 200 mg (2 x 100 mg) PO TID #300 01/08/25 caps celecoxib 200 mg capsule 200 mg PO BID #60 caps 02/01/25 clopidogrel 75 mg tablet 75 mg PO QAM #30 tabs 02/03/25 amoxicillin 875 mg-potassium 1 tab PO BID #20 tabs 02/12/25 clavulanate 125 mg tablet aspirin 81 mg tablet,delayed release (Adult Aspirin Regimen) 81 mg PO QAM vit C 250 mg-vit E 90 mg-zinc 40 mg-copper 1 cy-ivuiat-bhpgsr capsule (PreserVision AREDS-2) 2 tab PO QAM amlodipine 10 mg tablet 10 mg PO QAM epinephrine 0.3 mg/0.3 mL injection, auto-injector 0.3 mg (0.3 mL) IM Q10M PRN vitamin B12 2,500 mcg-folic acid 400 mcg disintegrating tablet 1 tab PO DAILY losartan 100 mg tablet 100 mg PO QAM prednisone 10 mg tablet 10 mg PO QAM allopurinol 100 mg tablet 100 mg PO BID rosuvastatin 20 mg tablet 20 mg PO QAM gabapentin 100 mg capsule 200 mg (2 x 100 mg) PO TID celecoxib 200 mg capsule 200 mg PO BID clopidogrel 75 mg tablet 75 mg PO QAM albuterol sulfate 90 mcg/actuation aerosol inhaler 1 inh inhalation UD PRN ferrous sulfate 325 mg (65 mg iron) tablet 325 mg PO 3XWK amoxicillin 875 mg-potassium clavulanate 125 mg tablet 1 tab PO BID Continue as directed epinephrine 0.3 mg/0.3 mL injection, auto-injector 0.3 mg (0.3 mL) IM Q10M PRN (if needed) albuterol sulfate 90 mcg/actuation aerosol inhaler 1 inh inhalation UD PRN(use if needed; please bring with you to hospital day of surgery if possible) ASK your surgeon for instructions celecoxib 200 mg capsule 200 mg PO BID ASK your prescriber and surgeon aspirin 81 mg tablet,delayed release (Adult Aspirin Regimen) 81 mg PO QAM clopidogrel 75 mg tablet 75 mg PO QAM STOP taking 2 weeks before surgery (or as soon as possible if surgery is within 2 weeks) vit C 250 mg-vit E 90 mg-zinc 40 mg-copper 1 ed-vmdota-dmoujz capsule (PreserVision AREDS-2) 2 tab PO QAM DO NOT take the morning of surgery vitamin B12 2,500 mcg-folic acid 400 mcg disintegrating tablet 1 tab PO DAILY losartan 100 mg tablet 100 mg PO QAM ferrous sulfate 325 mg (65 mg iron) tablet 325 mg PO 3XWK Take morning of surgery With a small sip of water, OTHERWISE NOTHING TO EAT OR DRINK AFTER MIDNIGHT: amlodipine 10 mg tablet 10 mg PO QAM prednisone 10 mg tablet 10 mg PO QAM allopurinol 100 mg tablet 100 mg PO BID rosuvastatin 20 mg tablet 20 mg PO QAM gabapentin 100 mg capsule 200 mg (2 x 100 mg) PO TID amoxicillin 875 mg-potassium clavulanate 125 mg tablet 1 tab PO BID Take evening before surgery allopurinol 100 mg tablet 100 mg PO BID gabapentin 100 mg capsule 200 mg (2 x 100 mg) PO TID amoxicillin 875 mg-potassium clavulanate 125 mg tablet 1 tab PO BID Other Notes If you have any questions please call us at [phone] or [phone] or [phone] or [phone]
--- NOTE | 2025-02-18 10:21 | Anesthesiology Consultation ---
Date of Service February 18, 2025 Assessment & Plan (1) Encounter for pre-operative examination: Chart Review Chart Review: Patient seen in Pre Admission Testing - Awaiting rescheduled date (will need to be 04/13/25 or later) (patient will need updated preop labs- surgeon's office aware; as well as updated RN interview (will be 61 days old) - Discussed case with Dr. Kolb- patient with recent CVA on 10/23/24 brain MRI after 10/12/24 ED visit for vision issues/TIA- recommend waiting 6 months prior to surgery to decrease risk of CVA (unless surgeon deems urgent/emergent). Per surgeon's office 02/18/25- surgery can be postponed six months - Per vascular surgery preop form 02/15/25= "Patient can stop his Plavix and aspirin as requested. Recommend restart DAPT as soon as safe." Per PAT appt on 02/18/25, patient with recent dental/sinus pain- PCP felt related to possible sinusitis - started on Augmentin 02/15/25 x 10 days- symptoms improving at PAT appt 02/18/25. No recent illness/disease exposures, or recent illness/disease positive tests. Will leave to surgeon's discretion if preop Covid testing needed PCP office visit 02/10/25= "Carotid stenosis... stents in both left and right carotid arteries and is on both aspirin and clopidogrel. PAD- continue walking with limitations of the spinal disease. Spinal stenosis... celebrex... HTN- losartan and amlodipine... HLD- rosuvastatin... Asthma- continue albuterol PRN... gout- allopurinol... anemia- believe he has iron deficiency I ordered iron levels... dental infection- sinus CT to exclude infection...." Left TCAR 10/26/24= Done under GA with Grade 1 view with MAC #3. ETT #7.5. Right radial a line 20g sterile with 2nd attempt Teaching & Discussion Pre-Anesthesia Teaching/Discussion Notes: Instructed NPO after midnight before surgery,except medications with 15 cc of water. Medication instructions provided according to the PAT guidelines. History Surgery Operation Date: 09/24/23 11:05 Proposed Procedures p L3-L4 and L4-L5 Lumbar Decompression - Seb Perez MD Operation Date: 10/13/24 07:30 Proposed Procedures p L4-L5, L5-S1 Laminectomy - Seb Perez MD Operation Date: 04/13/25 07:15 Proposed Procedures p L3-L4 and L4-L5 Lumbar Decompression - Seb Perez MD Height/Weight Height: 5 ft 7 in Weight: 79.9 kg Allergies Allergy/AdvReac Type Severity Reaction Status Date / Time venom-honey bee Allergy Severe Passed out Verified 02/11/25 07:52 No Known Drug Allergies Allergy . Verified 02/11/25 07:52 Medications Home Medications Medication Instructions Recorded Confirmed Last Taken aspirin 81 mg tablet,delayed 81 mg PO QAM 06/11/19 02/10/25 10/25/24 08:00 release (Adult Aspirin Regimen) vit C 250 mg-vit E 90 mg-zinc 40 2 tab PO QAM 07/19/20 02/10/25 10/25/24 08:00 mg-copper 1 [id number] capsule (PreserVision AREDS-2) amlodipine 10 mg tablet 10 mg PO QAM #90 tabs 09/14/24 02/11/25 10/25/24 08:00 epinephrine 0.3 mg/0.3 mL 0.3 mg (0.3 mL) IM Q10M PRN BEE 09/14/24 02/11/25 Unknown injection, auto-injector STINGS #2 ea vitamin B12 2,500 mcg-folic acid 1 tab PO DAILY 10/12/24 02/11/25 10/25/24 08:00 400 mcg disintegrating tablet losartan 100 mg tablet 100 mg PO QAM #90 tabs 10/15/24 02/11/25 10/25/24 08:00 prednisone 10 mg tablet 10 mg PO QAM #90 tabs 11/26/24 02/11/25 Unknown allopurinol 100 mg tablet 100 mg PO BID #180 tabs 12/02/24 02/11/25 Unknown rosuvastatin 20 mg tablet 20 mg PO QAM #90 tabs 12/02/24 02/11/25 Unknown gabapentin 100 mg capsule 200 mg (2 x 100 mg) PO TID #300 01/08/25 02/11/25 Unknown caps celecoxib 200 mg capsule 200 mg PO BID #60 caps 02/01/25 02/11/25 Unknown clopidogrel 75 mg tablet 75 mg PO QAM #30 tabs 02/03/25 02/11/25 Unknown albuterol sulfate 90 mcg/actuation 1 inh inhalation UD PRN asthma 02/11/25 02/11/25 Unknown aerosol inhaler ferrous sulfate 325 mg (65 mg 325 mg PO 3XWK 02/11/25 02/11/25 Unknown iron) tablet amoxicillin 875 mg-potassium 1 tab PO BID #20 tabs 02/12/25 Unknown clavulanate 125 mg tablet Past Medical History Medical History (Updated 02/19/25 @ 11:08 by Jenniffer Vega PA-C) AF (amaurosis fugax) Episode 08/2023- s/p right TCAR 09/2023 Additional episode 10/11/24- s/p left TCAR 10/26/24 Pain, dental hx tooth extraction 05/2024 , constant tooth ache since - Augmentin started 02/15/25 x days (PCP feels tooth pain related to sinusitis)- improving with abx as of PAT appt 02/19/25 - will follow up with gum specialist Dr. Arechiga Mar 2025 (only if symptoms persist) History of stroke - Brain MRI 09/2023- right occipital lobe chronic cortical infarction. 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 - s/p left TCAR 10/26/24 - does not follow with neurology Lumbar pain Hyperlipidemia Per records, Mild per patient Aortic stenosis Echo 09/2023: Mild to moderate aortic stenosis Prediabetes HgbA1C 6.5% in 01/2025 History of peripheral arterial disease Bilateral LE PAD Per 05/2024 vascular surgery note, left sided SFA stenosis 70-99% > conservative management (no symptoms currently) Hx-TIA (transient ischemic attack) Most recent 10/12/24 ([facility] evaluation) History of hypertension Hx of gout No flares for at least 10 years Asthma No problems x years History of anemia Iron supplementation Carotid artery disease s/p Right TCAR (09/2023), left TCAR (09/2024) History of COVID-19 08/2019- asymptomatic, no residual issues Exercise / Class Metabolic Activity II 4-5 Yardwork/Stairs/Walk up hill (one flight of stairs - no chest pain or SOB ) Past Family History Family History Sister Diabetes Breast cancer Lung cancer Father Alcohol abuse Coronary heart disease Stroke Mother Alcohol abuse Other Family history of adverse effect to anesthesia Denies family history of Ovarian cancer Prostate cancer Myocardial infarction Colorectal cancer Past Surgical History Surgical History History of tooth extraction (05/2024) History of left cataract surgery History of right cataract surgery History of transcarotid artery revascularization (TCAR) (09/2024) left Family history of reaction to anesthesia Sister- reaction to Versed, causing hallucinations Hx of tonsillectomy H/O transcarotid artery revascularization (TCAR) Right (09/2023) S/P epidural steroid injection History of colonoscopy History of appendectomy Past Anesthesia History No Hx of Anesthesia Complications and No Family Hx of Anesthesia Complications (with exception to sister- hallucination with Versed ) History of PONV No Hx of PONV and No Hx of Motion Sickness Social History Smoking Status: Former smoker Do You Dip or Chew Tobacco: No Smoking End Date: 50 yr ago Hx Alcohol Use: Yes Alcohol type: beer alcohol intake frequency: holidays/special occasions only Hx Substance Use: No substance use type: does not use Review of Systems - Recent sinus infection (only symptoms was dental pain)- currently on Amoxicillin at [facility] appt 02/18/25 - symptoms improving - Hx of snoring- no witnessed apnea- no hx of sleep study Patient denies chest pain, shortness of breath, dyspnea on exertion, reflux, cough, wheezing, palpitations. No hx of seizures, MO. No hx of blood clots or blood transfusions Physical Exam Vital Signs VITALS BP 123/69 P 69 TEMP 97.9 SP02 95% RESP 16 Constitutional no acute distress ENMT Mouth: no TMJ clicking Thyromental Distance: > or= 3.5 Finger Breadths (3.5) Mallampati Class: III Missing molars Neck neck extension not limited Respiratory normal respiratory effort; no respiratory distress Auscultation: lungs clear to auscultation bilaterally; no wheezes Cardiovascular Rate/Rhythm: regular rate and regular rhythm Heart Sounds: + murmur (II-II/) Vessels: + carotid bruit (Right bruit (very faint)) Musculoskeletal Spine: no pain with cervical ROM Extremities: extremities normal to inspection Psychiatric Orientation: alert Lab Results Anesthesia Preop Results Results Anesthesia Widget: WBC 8.00 K/ul (4.8-10.8) 02/04/25 Hgb 10.4 g/dl (14.0-18.0) L 02/04/25 Hct 31.3 % (42.0-52.0) L 02/04/25 Plt 225 K/uL (130-400) 02/04/25 Na 141 mmol/L (136-145) 02/04/25 K 4.1 mmol/L (3.5-5.1) 02/04/25 Cl 110 mmol/L (98-107) H 02/04/25 CO2 24 mmol/L (21-32) 02/04/25 BUN 27 mg/dl (6-23) H 02/04/25 Creat 1.35 mg/dl (0.6-1.4) 02/04/25 Glucose Level 85 mg/dl (70-99(Fasting)) 02/04/25 TSH 1.883 uIu/ml (0.300-4.500) 02/04/25 HA1c 6.5 % (4.5-5.6) H 02/04/25 Blood Type O Positive 02/18/25 Antibody Screen NEGATIVE 02/18/25 Testing Laboratory Results Anemia- started on iron supplement by PCP Electrocardiogram Date: 10/12/24 SR with PACs at 84bpm. LAD. Possible inferior infarct. When compared to EKG from September 23, 2024- PVCs are no longer present, PACs are now present per cardio Chest X-Ray Date: 09/23/24 Findings: + NAD Echocardiogram Date: 10/10/23 EF: 60-65% LV Function: normal RWMA: + none Other Findings: + diastolic dysfunction (Grade I); no LVH Valvular Disease: + MR (mild) Normal chamber dimensions. Mild to moderate aortic stenosis (JOSH 1.2cm2; AV max velocity 2.609 m/s; AV mean PG 12.1mmHg) Normal estimated heart pressures. No cardiac source of emboli are noted Other Testing Brain MRI Date: 10/23/24 IMPRESSION: 1. There is evidence of a region of gyral enhancement confined to the right posterior cerebral artery territory with matching DWI high signal. Features are consistent with a subacute MEDICAL UNDERWRITER infarct. 2. Few well defined FLAIR / T2 W high signal without diffusion restriction seen in the bilateral louis matter, white matter and periventricular region ? suggest chronic small vessels ischemic changes. 3. Compared with the prior examination left posterior cerebral artery infraction is identified. (Comparison made to 10/02/23 imaging) Head CT Date: 10/12/24 IMPRESSION: No evidence of acute intercranial pathology. Head CTA Date: 10/12/24 IMPRESSION: Negative CT angiogram of the head. Neck CTA Date: 10/12/24 IMPRESSION: There is an 80% stenosis of the right ICA with carotid stent in place. There is an 80% stenosis of the proximal left ICA with heavily calcified atherosclerotic disease.
[~2025-04-13 08:57] MED LIST changes: +ACETAMINOPHEN 500 MG TAB PO SCH; -DEXAMETHASONE SOD INJ 4 MG/ML VIAL ONE; +GABAPENTIN 300 MG CAP PO SCH; +LACTATED RINGER'S 1,000 ML IV SCH; -LIDOCAINE 2% 2 ML VIAL/AMP(20MG/ML) INFIL ONE; +LR 15ML/HR IV SCH; +LR 60ML/HR IV SCH; -ONDANSETRON INJ 2 MG/ML 2 ML VIAL ONE; -PROPOFOL IV EMULSION 10 MG/ML 20 ML VIAL IV ONE; -ePHEDrine sulfate 50 MG/ML AMP IV PRN; -fentaNYL citrate PF 100 MCG/2 ML VIAL IV PRN; -fentaNYL citrate PF 100 MCG/2 ML VIAL ONE
[2025-04-13] MEDS ORDERED: ONDANSETRON INJ 2 MG/ML 2 ML VIAL ONE (09:09)
[2025-04-13] MEDS ORDERED: DEXAMETHASONE SOD INJ 4 MG/ML VIAL ONE (09:09)
[2025-04-13] MEDS ORDERED: ROCURONIUM BROMIDE 10 MG/ML 5 ML VIAL IV ONE ×2 (09:09→11:36)
[2025-04-13] MEDS ORDERED: PROPOFOL IV EMULSION 10 MG/ML 20 ML VIAL IV ONE (09:09)
[2025-04-13] MEDS ORDERED: LIDOCAINE 2% 2 ML VIAL/AMP(20MG/ML) INFIL ONE (09:09)
[2025-04-13] MEDS: LR 60ML/HR IV SCH (09:17)
[2025-04-13] MEDS: GABAPENTIN 300 MG CAP PO SCH (09:25)
[2025-04-13] MEDS ORDERED: HYDROCORTISONE SOD SUCCINATE 100 MG/2 ML VIAL ONE (09:27)
[2025-04-13] MEDS: ACETAMINOPHEN 500 MG TAB PO SCH (09:39)
--- NOTE | 2025-04-13 10:47 | History & Physical Report ---
Date of Service April 13, 2025 History of Present Illness Chief Complaint: Patient is here to review his upcoming surgery on October 13, he had a few limited questions. He reports no significant change in his symptoms with his main radicular symptoms being in the left leg. No changes on examination relative to previous examination, some slight weakness in plantarflexion of the left foot when trying to stand up, but not necessarily on ankle dorsiflexion. He has trace to 1 reflexes in the knees which are roughly symmetric absent ankle reflexes, mildly positive straight leg raise in the left leg for leg pain. 4 views of lumbar radiographs upright taken for 07/15/24 office reveal overall reasonable alignment there is increased loss of disc space height at L5-S1 and L4-5. No spondylolisthesis. Review of lumbar MRI from [facility] from July 03, 2023, this is my separate interpretation Reveals the main findings to be at L4-5 where there is high-grade stenosis combination of disc bulge and disc degeneration along with thickened ligamentum flavum at this level causing severe stenosis. At L5 5 S1 there is a left-sided disc protrusion with some extension in the cephalad which causes left lateral recess stenosis. There is bilateral foraminal stenosis at L5-S1 severe and moderate on the left at L4-5. Impression: Lumbar stenosis at the L4-5 level severe with left-sided disc protrusion L5-S1. Plan: We rediscussed the proposed surgery which would be to decompression at the L4-5 level and also the L5-S1 level focusing on the disc protrusion at the the latter level on the left side where the disc protrusion is present. I did talk with the patient about the fact that I believe this will help with the lower extremity symptoms though he still might have some limited axial symptomatology, he is in agreement with this plan and will be following up after the upcoming surgery. Primary Care Provider: Jayson Valenzuela MD . Allergies Allergy/AdvReac Type Severity Reaction Status Date / Time venom-honey bee Allergy Severe Passed out Verified 04/13/25 08:59 No Known Drug Allergies Allergy . Verified 04/13/25 08:59 Home Medications Medication Instructions Recorded Confirmed Type aspirin 81 mg tablet,delayed 81 mg PO QAM 06/11/19 04/13/25 History release (Adult Aspirin Regimen) vit C 250 mg-vit E 90 mg-zinc 40 2 tab PO QAM 07/19/20 04/13/25 History mg-copper 1 [id number] capsule (PreserVision AREDS-2) amlodipine 10 mg tablet 10 mg PO QAM #90 tabs 09/14/24 04/13/25 Rx epinephrine 0.3 mg/0.3 mL 0.3 mg (0.3 mL) IM Q10M PRN BEE 09/14/24 04/13/25 Rx injection, auto-injector STINGS #2 ea vitamin B12 2,500 mcg-folic acid 1 tab PO DAILY 10/12/24 04/13/25 History 400 mcg disintegrating tablet losartan 100 mg tablet 100 mg PO QAM #90 tabs 10/15/24 04/13/25 Rx allopurinol 100 mg tablet 100 mg PO BID #180 tabs 12/02/24 04/13/25 Rx rosuvastatin 20 mg tablet 20 mg PO QAM #90 tabs 12/02/24 04/13/25 Rx gabapentin 100 mg capsule 200 mg (2 x 100 mg) PO TID #300 01/08/25 04/13/25 Rx caps celecoxib 200 mg capsule 200 mg PO BID #60 caps 02/01/25 04/13/25 Rx clopidogrel 75 mg tablet 75 mg PO QAM #30 tabs 02/03/25 04/13/25 Rx albuterol sulfate 90 mcg/actuation 1 inh inhalation UD PRN asthma 02/11/25 04/13/25 History aerosol inhaler ferrous sulfate 325 mg (65 mg 325 mg PO 3XWK 02/11/25 04/13/25 History iron) tablet prednisone 10 mg tablet 10 mg PO QAM #90 tabs 04/05/25 04/13/25 Rx Past Med/Surg History Problem List Dental infection Carotid artery stenosis (Chronic) Piriformis syndrome Disc degeneration, lumbar 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 Arechiga Mar 2025 (only if symptoms persist) History of stroke - Brain MRI 09/2023- right occipital lobe chronic cortical infarction. 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 - s/p left TCAR 10/26/24 - does not follow with neurology Lumbar pain Hyperlipidemia Per records, Mild per patient Aortic stenosis Echo 09/2023: Mild to moderate aortic stenosis Prediabetes HgbA1C 6.5% in 01/2025 History of peripheral arterial disease Bilateral LE PAD Per 05/2024 vascular surgery note, left sided SFA stenosis 70-99% > conservative management (no symptoms currently) Hx-TIA (transient ischemic attack) Most recent 10/12/24 ([facility] evaluation) History of hypertension Hx of gout No flares for at least 10 years Asthma No problems x years History of anemia Iron supplementation Carotid artery disease s/p Right TCAR (09/2023), left TCAR (09/2024) History of COVID-19 08/2019- asymptomatic, no residual issues Surgical History History of tooth extraction (05/2024) History of left cataract surgery History of right cataract surgery History of transcarotid artery revascularization (TCAR) (09/2024) left Family history of reaction to anesthesia Sister- reaction to Versed, causing hallucinations Hx of tonsillectomy H/O transcarotid artery revascularization (TCAR) Right (09/2023) S/P epidural steroid injection History of colonoscopy History of appendectomy Family History Sister Diabetes Breast cancer Lung cancer Father Alcohol abuse Coronary heart disease Stroke Mother Alcohol abuse Other Family history of adverse effect to anesthesia Denies family history of Ovarian cancer Prostate cancer Myocardial infarction Colorectal cancer Social History Smoking Status: Former smoker Tobacco Type: Cigarettes Age Started Using Tobacco: 18; Age Quit Using Tobacco: 25; packs per day: 1; Smoking End Date: 50 years ago; Second Hand Exposure: No; Do You Dip or Chew Tobacco: No; Tobacco Cessation Education Requested by Patient: No Hx Alcohol Use: No Hx Substance Use: No Preferred Language: Mohawk Communication Ability: Effective Conference Service Coordinator Required: No Beliefs That Will Affect Care: None marital status: Current Living Situation: Spouse Current Living Situation Comment: [facility] current occupational status: retired Other Information That Helps Us Care for You: No Feels Safe at Home: Yes Safety Concerns: Feels Safe At This Time Childhood Exposure to Second-Hand Smoke: Yes caffeine: Yes (soda) Dental Care, Regularly: Yes Physical Activity Frequency: Does not Exercise Seatbelt Use: always Sunscreen Use: No Assistive Devices: Glasses Review of Systems All systems reviewed & are unremarkable except as noted in HPI & below. Physical Exam . Results & Data Results & Data Laboratory Results . Diagnostic Findings . PG Care Time/CCT Total # of Minutes Spent Total Time Spent with Patient: Total time spent is greater than 50% in coordination of care (as documented) at patient's floor/unit and/or counseling patient: Coding Level of Care Code 78886 INT INP/OBS CARE 140MIN
[2025-04-13] MEDS ORDERED: PHENYLEPHRINE 100MCG/ML 5ML SYR ONE (12:01)
[2025-04-13] MEDS: VANCOMYCIN HCL 1000MG/20ML VIAL ONE (12:11)
[2025-04-13] MEDS: GELATIN SPONGE 12-7MM ONE (13:47)
[2025-04-13] MEDS: THROMBIN 5000 UNITS KIT ONE (13:47)
[2025-04-13] MEDS ORDERED: SUGAMMADEX SODIUM 200 MG/2 ML VIAL IV ONE (13:56)
[2025-04-13] MEDS: BUPIVACAINE/EPINEPHRINE 0.5% MPF 1:200,000 30 ML VIAL ONE (14:02)
[2025-04-13] MEDS: FLOSEAL HEMOSTATIC MATRIX 5ML TOP ONE (14:04)
--- NOTE | 2025-04-13 14:25 | Fluoroscopy Report ---
FL spine 1V any level CLINICAL HISTORY: L4-S1 LAMINECTOMY COMPARISON STUDY: None FLUOROSCOPY TIME: 20 seconds FLUOROSCOPY IMAGES: 2 EXPOSURE DOSE: 13 mGy FINDINGS: Fluoroscopy was provided for lower lumbar laminectomy. IMPRESSION: Intraoperative fluoroscopy. ACT 112: Negative or not required by law. Electronically signed by: Channing Das M.D. 04/13/2025 2:24 PM
[2025-04-13] MEDS ORDERED: LORazepam 0.5 MG TAB PO PRN (14:46)
[2025-04-13] MEDS ORDERED: ACETAMINOPHEN 1,000 MG/100 ML VIAL IV PRN (14:46)
[2025-04-13] MEDS ORDERED: SOD PHOSPHATE/SOD BIPHOSPHATE ENEMA 132 ML BTL PR PRN (14:46)
[2025-04-13] MEDS ORDERED: METOCLOPRAMIDE HCL INJ 5 MG/ML 2 ML VIAL IV PRN (14:46)
[2025-04-13] MEDS ORDERED: LORazepam Inj 0.5 MG in SYRINGE 0.25 ML IV PRN (14:46)
[2025-04-13] MEDS ORDERED: DO NOT ADMINISTER FLU VACCINE PRN (14:46)
[2025-04-13] MEDS ORDERED: DO NOT ADMINISTER PNEUMOCOCCAL VACCINE PRN (14:46)
[2025-04-13] MEDS ORDERED: MAGNESIUM HYDROXIDE SUSP 30 ML UDC PO PRN (14:46)
[2025-04-13] MEDS ORDERED: HYDROmorphone INJ 1 MG/ML SYRINGE IV PRN (14:46)
[2025-04-13] MEDS ORDERED: FAMOTIDINE 20 MG TAB PO PRN (14:46)
[2025-04-13] MEDS ORDERED: ONDANSETRON 4 MG OD TAB PO PRN (14:46)
[2025-04-13] MEDS ORDERED: ALUMINUM/MAGNESIUM SUSP 30 ML UDC PO PRN (14:46)
[2025-04-13] MEDS ORDERED: diphenhydrAMINE Capsule 25 MG CAP PO PRN (14:46)
[2025-04-13] MEDS ORDERED: PROMETHAZINE 12.5 MG/50.5 ML BAG IV PRN (14:46)
[2025-04-13] MEDS ORDERED: NALOXONE HCL 0.4 MG/1 ML VIAL/CARP IV PRN (14:46)
[2025-04-13] MEDS ORDERED: ONDANSETRON INJ 2 MG/ML 2 ML VIAL IV PRN (14:46)
--- NOTE | 2025-04-13 14:46 | Post Operative Brief Note ---
PG Immediate Post Op with CF Date of Surgery April 13, 2025 Pre & Post Diagnosis Operation Date: 04/13/25 10:20 Pre-Op Diagnosis: Disc Degeneration of Lumbar, Degeneration of Lumbosacral Post-Op Diagnosis: Disc Degeneration of Lumbar, Degeneration of Lumbosacral I identified the patient and participated in the time-out.: Yes Procedure Operation Date: 04/13/25 10:20 Actual Procedures p L4-L5, L5-S1 Laminectomy(Not Applicable) - Seb Perez MD Surgeon Seb Perez MD Office Secretary nonoe Estimated Blood Loss 30 Findings Consistent with Post-Op Diagnosis Specimens Specimen Description: No specimen per surgeon Drains Holguin Catheter (16Fr silicone holguin catheter inserted by Ankur ACEVEDO prior to procedure without difficulty. Clear yellow urine noted. )
[2025-04-13 15:25] LABS: Hematocrit (blood only) 32.7 % (42.0-52.0); Hemoglobin 10.6 g/dl (14.0-18.0); Mean Corpuscular Hemoglobin 29.5 pg (25.0-34.0); Mean Corpuscular Volume 91.1 fL (80.0-100.0); Platelet Count 200 K/uL (130-400); RDW Standard Deviation 50.4 fL (36.4-46.3); Red Blood Count 3.59 M/uL (4.70-6.10); White Blood Count 7.85 K/ul (4.8-10.8)
[2025-04-13 15:29] LABS: Immature Granulocytes # (auto) 0.08 K/uL (0.01-0.20); Immature Granulocytes % (auto) 1.0 %
[2025-04-13] MEDS ORDERED: ALBUTEROL HFA 8 GM INHALER INH PRN (16:00)
--- NOTE | 2025-04-13 16:20 | Anesthesiology Progress Note ---
Date of Service April 13, 2025 Anesthesia Post Procedure Vital Signs Vital Signs: Temp Pulse Pulse Resp BP Pulse Ox O2 Del Method 04/13/25 16:17 36.6 C 78 16 154/81 H 98 Room Air 04/13/25 15:30 70 12 141/68 H 96 Room Air 04/13/25 15:16 36.4 C L 67 16 156/80 H 97 Room Air 04/13/25 15:15 71 12 144/79 H 99 Room Air 04/13/25 15:00 36.4 C L 64 12 142/69 H 98 Room Air 04/13/25 14:50 67 12 139/73 97 Room Air 04/13/25 14:40 63 18 135/68 96 Room Air 04/13/25 14:30 93 H 12 153/78 H 97 Room Air 04/13/25 14:20 36.4 C L 97 H 12 159/85 H 98 Oxymask 04/13/25 09:09 36.9 C 88 20 159/60 H 97 Room Air O2 Flow Rate 04/13/25 16:17 04/13/25 15:30 04/13/25 15:16 04/13/25 15:15 04/13/25 15:00 04/13/25 14:50 04/13/25 14:40 04/13/25 14:30 04/13/25 14:20 4 04/13/25 09:09 Pain Intensity Back: Pain Intensity: 3 Lower Back: Pain Intensity: 3 Transfer of Care Handoff Completed per policy Notes Mental Status: alert / awake / arousable and participated in evaluation Patient Amnestic to Procedure: Yes Nausea / Vomiting: adequately controlled Pain: adequately controlled Airway Patency, RR, SpO2: stable & adequate BP & HR: stable & adequate Hydration State: stable & adequate Anesthetic Complications: no major complications apparent and Pt Satisfied with anesthetic care
--- NOTE | 2025-04-13 16:39 | Hospitalist Consultation ---
Date of Consultation April 13, 2025 Assessment & Plan (1) Spinal stenosis of lumbar region with neurogenic claudication: (2) Current chronic use of systemic steroids: (3) Hypertension: (4) Hyperlipidemia: Plan Xavier is a 84M with a PMHx of anemia, carotid artery stenosis, PAD, HTN, HLD, asthma and gout who presents to the hospital for elective spine surgery with Dr. Perez. Hospital medicine consulted for "surgery" #S/p Lumbar spine surgery - L4-L5, L5-S1 laminectomy with Dr. Perez 04/13 Pain control | abx | dvt proh | dispo planning - per primary team EBL 30 - with baseline anemia, monitor CBC Continue home iron supplementation #Chronic steroid use Has been on prednisone 10mg daily for > 1 year. Patient unaware why but based on PCP documentation seems to be for lumbar stenosis Continue this admission, wean off in outpatient setting monitor BP but at this time no indication for stress dose steroids #HTN Continue almlodopine hold losartan pending AM labs #Coronary artery stenosis Aspirin continued plavix held - resume when okay by surgery #HLD - continue statin Thank you for allowing us to participate in the care of this patient, please reach out with any questions or concerns Supervising Physician Co-Signing Physician Notes Patient was seen and examined independently I discussed the case with Sosa Burrell PA-C I reviewed pertinent past medical social family history and also the plan of care and agree with the plan of care. 84-year-old male who has a history of hypertension dyslipidemia chronic steroid use who underwent lumbar spinal surgery L4-5, L5-S1, with laminectomies with Dr. Perez. Patient presents taking chronic prednisone therapy. Primary care suggest this is for his back discomfort. He also is treated for hypertension with amlodipine and losartan and had his aspirin and Plavix held which she takes for coronary secondary risk prevention. Patient had small blood loss during procedure and postprocedure was resting comfortably Physical exam is a pleasant gentleman pain control is good card exam is regular Assessment post procedure look for adrenal crisis if he has chronic suppression of his adrenal axis from the steroid use since he is been on prednisone for fairly long time. Will continue his amlodipine holding losartan pending labs and blood pressure and restart his antiplatelet agents when appropriate in regards to his postsurgical course Any exceptions will be noted below History of Present Illness Reason for Consultation: surgery Requesting Physician: Dr. Perez Attending Physician: Seb Perez MD History of Present Illness Xavier is a 84M with a PMHx of anemia, carotid artery stenosis, PAD, HTN, HLD, asthma and gout who presents to the hospital for elective spine surgery with Dr. Perez. Patient seen post operaitvely feeling well - instructed to lay flat. Passed gas already. Last BM this morning unsure why he is taking prednisone Allergies Allergy/AdvReac Type Severity Reaction Status Date / Time venom-honey bee Allergy Severe Passed out Verified 04/13/25 08:59 No Known Drug Allergies Allergy . Verified 04/13/25 08:59 Home Medications Medication Instructions Recorded Confirmed Type aspirin 81 mg tablet,delayed 81 mg PO QAM 06/11/19 04/13/25 History release (Adult Aspirin Regimen) vit C 250 mg-vit E 90 mg-zinc 40 2 tab PO QAM 07/19/20 04/13/25 History mg-copper 1 ws-nwaevr-euhigl capsule (PreserVision AREDS-2) amlodipine 10 mg tablet 10 mg PO QAM #90 tabs 09/14/24 04/13/25 Rx epinephrine 0.3 mg/0.3 mL 0.3 mg (0.3 mL) IM Q10M PRN BEE 09/14/24 04/13/25 Rx injection, auto-injector STINGS #2 ea vitamin B12 2,500 mcg-folic acid 1 tab PO DAILY 10/12/24 04/13/25 History 400 mcg disintegrating tablet losartan 100 mg tablet 100 mg PO QAM #90 tabs 10/15/24 04/13/25 Rx allopurinol 100 mg tablet 100 mg PO BID #180 tabs 12/02/24 04/13/25 Rx rosuvastatin 20 mg tablet 20 mg PO QAM #90 tabs 12/02/24 04/13/25 Rx gabapentin 100 mg capsule 200 mg (2 x 100 mg) PO TID #300 01/08/25 04/13/25 Rx caps celecoxib 200 mg capsule 200 mg PO BID #60 caps 02/01/25 04/13/25 Rx clopidogrel 75 mg tablet 75 mg PO QAM #30 tabs 02/03/25 04/13/25 Rx albuterol sulfate 90 mcg/actuation 1 inh inhalation UD PRN asthma 02/11/25 04/13/25 History aerosol inhaler ferrous sulfate 325 mg (65 mg 325 mg PO 3XWK 02/11/25 04/13/25 History iron) tablet prednisone 10 mg tablet 10 mg PO QAM #90 tabs 04/05/25 04/13/25 Rx Patient History Medical History (Updated 04/13/25 @ 17:37 by Sosa Garcia PA-C) 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 Arechiga Mar 2025 (only if symptoms persist) History of stroke - Brain MRI 09/2023- right occipital lobe chronic cortical infarction. 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 - s/p left TCAR 10/26/24 - does not follow with neurology Lumbar pain Hyperlipidemia Per records, Mild per patient Aortic stenosis Echo 09/2023: Mild to moderate aortic stenosis Prediabetes HgbA1C 6.5% in 01/2025 History of peripheral arterial disease Bilateral LE PAD Per 05/2024 vascular surgery note, left sided SFA stenosis 70-99% > conservative management (no symptoms currently) Hx-TIA (transient ischemic attack) Most recent 10/12/24 ([facility] evaluation) History of hypertension Hx of gout No flares for at least 10 years Asthma No problems x years History of anemia Iron supplementation Carotid artery disease s/p Right TCAR (09/2023), left TCAR (09/2024) History of COVID-19 08/2019- asymptomatic, no residual issues Surgical History History of tooth extraction (05/2024) History of left cataract surgery History of right cataract surgery History of transcarotid artery revascularization (TCAR) (09/2024) left Family history of reaction to anesthesia Sister- reaction to Versed, causing hallucinations Hx of tonsillectomy H/O transcarotid artery revascularization (TCAR) Right (09/2023) S/P epidural steroid injection History of colonoscopy History of appendectomy Family History Sister Diabetes Breast cancer Lung cancer Father Alcohol abuse Coronary heart disease Stroke Mother Alcohol abuse Other Family history of adverse effect to anesthesia Denies family history of Ovarian cancer Prostate cancer Myocardial infarction Colorectal cancer Social History Smoking Status: Former smoker Tobacco Type: Cigarettes Age Started Using Tobacco: 18; Age Quit Using Tobacco: 25; packs per day: 1; Smoking End Date: 50 years ago; Second Hand Exposure: No; Do You Dip or Chew Tobacco: No; Tobacco Cessation Education Requested by Patient: No Hx Alcohol Use: No Hx Substance Use: No Preferred Language: [place] Helen[place] Communication Ability: Effective 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: No Beliefs That Will Affect Care: None marital status: Current Living Situation: Spouse Current Living Situation Comment: [facility] [employer] current occupational status: retired Other Information That Helps Us Care for You: No Feels Safe at Home: Yes Safety Concerns: Feels Safe At This Time Childhood Exposure to Second-Hand Smoke: Yes caffeine: Yes (soda) Dental Care, Regularly: Yes Physical Activity Frequency: Does not Exercise Seatbelt Use: always Sunscreen Use: No Assistive Devices: Glasses Review of Systems Review of Systems: All systems reviewed & are unremarkable except as noted in Subjective Physical Exam Physical Exam: General: NAD, VS as above Resp: normal respiratory effort, lungs clear to auscultation anteriorily CV: RRR, no murmur, Abd: normal bowel sounds, non tender, soft Extremities: Moves all extremities, no edema Neuro: A&O x3, Skin: intact, no lesions noted Results & Data Results & Data Vital Signs (Past 12 Hours) Vital Signs Temp Pulse Pulse Resp BP Pulse Ox O2 Del Method 04/13/25 16:17 97.9 F 78 16 154/81 H 98 Room Air 04/13/25 15:30 70 12 141/68 H 96 Room Air 04/13/25 15:16 97.5 F L 67 16 156/80 H 97 Room Air 04/13/25 15:15 71 12 144/79 H 99 Room Air 04/13/25 15:00 97.5 F L 64 12 142/69 H 98 Room Air 04/13/25 14:50 67 12 139/73 97 Room Air 04/13/25 14:40 63 18 135/68 96 Room Air 04/13/25 14:30 93 H 12 153/78 H 97 Room Air 04/13/25 14:20 97.5 F L 97 H 12 159/85 H 98 Oxymask 04/13/25 09:09 98.4 F 88 20 159/60 H 97 Room Air O2 Flow Rate 04/13/25 16:17 04/13/25 15:30 04/13/25 15:16 04/13/25 15:15 04/13/25 15:00 04/13/25 14:50 04/13/25 14:40 04/13/25 14:30 04/13/25 14:20 4 04/13/25 09:09 Laboratory Results cbc reviewed PG Care Time/CCT Total # of Minutes Spent Total Time Spent with Patient: Total time spent is greater than 50% in coordination of care (as documented) at patient's floor/unit and/or counseling patient: Coding Level of Care Code 92202 IN/OBS CONSULT LVL 3,45M Diagnoses Spinal stenosis of lumbar region with neurogenic claudication M48.062 Current chronic use of systemic steroids Z79.52 Hypertension I10 Hyperlipidemia E78.5
[2025-04-13] MEDS: DOCUSATE SODIUM/SENNA 50/8.6MG TAB PO SCH (20:51)
[2025-04-13] MEDS: GABAPENTIN 100 MG CAP PO SCH (20:52)
[2025-04-14] MEDS: POLYETHYLENE (MIRALAX) 17 GM PACK PO SCH (05:14)
[2025-04-14] MEDS: FERROUS SULFATE 325 MG TAB PO SCH (09:01)
[2025-04-14] MEDS: ASPIRIN 81 MG ECTAB PO SCH (09:01)
--- NOTE | 2025-04-14 09:03 | Orthopedic Progress Note ---
Date of Service April 14, 2025 Assessment & Plan (1) Spinal stenosis of lumbar region with neurogenic claudication: Subjective .Active Problems: S/p L4-S1 laminectomy, dural tear POD 1 84 y/o male s/p L4-S1 laminectomy with dural tear. Doing well overall, pain managed and improved function. Denies fever/chills, chest pain/SOB, nausea/vomiting. Otherwise no complaints. Review of Systems All systems reviewed & are unremarkable except as noted in HPI & below. Physical Exam .General: Alert and oriented, no acute distress * Constitutional: well-developed, well-nourished. * Respiratory: Normal respiratory effort, no distress * Gastrointestinal: No tenderness to palpation, no rigidity or guarding. * Skin: No rash or lesion. * Neurologic: Grossly normal * Musculoskeletal: Surgical dressing CDI. No clear drainage noted. Lumbar spine region without obvious deformity or overlying skin changes. Minimal tenderness of surgical region, otherwise no tenderness b/l buttock or LE. Lumbar flexion/extension and rotation ROM with minimal pain. AROM b/l hip flexion, knee flexion/extension, ankle flexion/extension intact. Sensation intact plantar/dorsal foot. Brisk capillary refill. Results & Data Results & Data Laboratory Results . * Continue Current Treatment * Disposition: TBD * Strict bedrest until Saturday * Must remain flat-lying at all times. May logroll to reposition * Daily dressing change with surgical team * No PT/OT at this time * Continue to monitor for ABLA * Pain control * Office/hospital f/u 2 weeks for progress check and staple/suture removal * Plan for discharge today pending PT/OT clearance * * Patient seen and examined, dressing with minimal drainage present, this was changed. I did not see any obvious CSF type drainage, we will continue with the patient being flat in bed and recheck the dressing tomorrow. Diagnostic Findings . PG Care Time/CCT Total # of Minutes Spent Total Time Spent with Patient: Total time spent is greater than 50% in coordination of care (as documented) at patient's floor/unit and/or counseling patient: Coding Level of Care Code 65920 Post Operative Follow-Up Diagnoses Spinal stenosis of lumbar region with neurogenic claudication M48.062
[2025-04-14 09:05] LABS: Hematocrit (blood only) 33.2 % (42.0-52.0); Hemoglobin 10.9 g/dl (14.0-18.0); Mean Corpuscular Hemoglobin 29.5 pg (25.0-34.0); Mean Corpuscular Volume 89.7 fL (80.0-100.0); Platelet Count 206 K/uL (130-400); RDW Standard Deviation 51.7 fL (36.4-46.3); Red Blood Count 3.70 M/uL (4.70-6.10); White Blood Count 11.19 K/ul (4.8-10.8)
[2025-04-14 09:38] LABS: Anion Gap 7.0 (3-11); Blood Urea Nitrogen 22.0 mg/dl (6-23); Calcium 8.5 mg/dl (8.6-10.3); Carbon Dioxide 25.0 mmol/L (21-32); Chloride 107.0 mmol/L (98-107); Creatinine Clr Calc Pharmacy 41.1 ml/min; Glucose 80.0 mg/dl (70-99(Fasting)); Potassium 3.6 mmol/L (3.5-5.1); Sodium 139.0 mmol/L (136-145)
[2025-04-14] MEDS: HYDROmorphone INJ 0.5 MG/0.5 ML SYR IV PRN (13:40)
--- NOTE | 2025-04-14 14:35 | Hospitalist Progress Note ---
Date of Service April 14, 2025 Assessment & Plan (1) Spinal stenosis of lumbar region with neurogenic claudication: (2) Current chronic use of systemic steroids: (3) Hypertension: (4) Hyperlipidemia: Plan Xavier is a 84M with a PMHx of anemia, carotid artery stenosis, PAD, HTN, HLD, asthma and gout who presents to the hospital for elective spine surgery with Dr. Perez. Hospital medicine consulted for "surgery" #S/p Lumbar spine surgery - L4-L5, L5-S1 laminectomy with Dr. Perez 04/13, with dural tear still has to remain flat until 04/15 Pain control | abx | dvt proh | dispo planning - per primary team EBL 30 - with baseline anemia, hemoglobin stable at 10.9 Continue home iron supplementation #Chronic steroid use Has been on prednisone 10mg daily for > 1 year. Patient unaware why but based on PCP documentation seems to be for lumbar stenosis Continue this admission, wean off in outpatient setting monitor BP but at this time no indication for stress dose steroids #HTN Continue amlodipine and losartan #Coronary artery stenosis Aspirin continued plavix held - resume when okay by surgery #HLD - continue statin Thank you for allowing us to participate in the care of this patient, please reach out with any questions or concerns. Hospital Medicine will sign off. Admission and Anticipated Discharge Date Admission Date: April 14, 2025 Supervising Physician Co-Signing Physician Notes I verified all hurst points and agree with Sosa Garcia PA-C with the following exceptions and/or additions: None Subjective patient seen lying in bed, present at bedside Reports pain is improved. Passing gas but no bowel movement yet. We discussed his chronic steroid use and he will follow-up with his PCP to be weaned off of this Review of Systems Review of Systems: All systems reviewed & are unremarkable except as noted in Subjective Physical Exam Physical Exam: General: NAD, VS as above Resp: normal respiratory effort, lungs clear to auscultation anteriorly CV: RRR, no murmur, Abd: normal bowel sounds, non tender, soft Extremities: Moves all extremities, no edema Neuro: A&O x3, Skin: intact, no lesions noted Results & Data Results & Data Vital Signs (Past 12 Hours) Vital Signs Temp Pulse Resp BP Pulse Ox O2 Del Method 04/14/25 10:41 99.0 F 81 18 136/65 91 Room Air 04/14/25 07:00 98.4 F 74 18 141/67 H 95 Room Air 04/14/25 04:21 98.2 F 81 16 141/79 H 94 Room Air Laboratory Results CBC and chemistry reviewed PG Care Time/CCT Total # of Minutes Spent Total Time Spent with Patient: Total time spent is greater than 50% in coordination of care (as documented) at patient's floor/unit and/or counseling patient: Coding Level of Care Code 89964 SUB INP/OBS CARE 2/35MIN Diagnoses Spinal stenosis of lumbar region with neurogenic claudication M48.062 Current chronic use of systemic steroids Z79.52 Hypertension I10 Hyperlipidemia E78.5
--- NOTE | 2025-04-14 15:50 | Operative Report ---
PG Post Operative Report Pre & Post Diagnosis Operation Date: 04/13/25 10:20 Pre-Op Diagnosis: Disc Degeneration of Lumbar, Degeneration of Lumbosacral Post-Op Diagnosis: Disc Degeneration of Lumbar, Degeneration of Lumbosacral I identified the patient and participated in the time-out.: Yes Procedure Operation Date: 04/13/25 10:20 Actual Procedures p L4-L5, L5-S1 Laminectomy(Not Applicable) - Seb Perez MD Surgeon Seb Perez MD Speaker Mounter nonoe Estimated Blood Loss 30 Findings Consistent with Post-Op Diagnosis Specimens none Description of Procedure 1. L4-5 posterior lumbar decompression/laminectomy. (12284) 2. L5-S1 left posterior lumbar decompression/laminectomy. (20371) Patient was taken the operating room and after adequate anesthesia was carefully positioned prone on the OSI Finn frame, checked for positioning with a preprepped performed. Fluoroscopy was brought in where I marked for the approximate location of the incision to incorporate the L4-5 and L5-S1 levels. After prepping and draping, midline incision was then carried out and taking down to the interlaminar region at L4-5 and L5-S1 and these regions were exposed, confirmed on fluoroscopy for the location of the levels. Starting at the L5-S1 level, a left-sided approach was performed with a hemilaminectomy along the inferior laminar edge of L L5, across the superior laminar edge of S1 along the medial facet. The ligamentum flavum was then thinned and removed, and the dural contents were mobilized medially, the decompression was completed on the left side including removal of some posterior spondylosis at the disc level and removal of some disc material completing the lateral recess decompression in this region. Floseal was then applied, I then moved to the L4-5 level. Inferior aspect of the spinous process of L4, across the superior aspect of the L5 spinous process was removed, exposing the interlaminar region. And here the thickened ligamentum flavum was then thinned, used a high-speed bur to perform inferior laminectomy across the inferior laminar edge of L4 across the superior laminar edge of L5 along the medial facets bilaterally. This exposed additional thickened ligamentum flavum which I continued to slowly thin and then removed for the decompression. This process continued using a combination of curettes and Kerrison punches undercutting the facets bilaterally and removing the thickened ligamentum flavum. This is across the inferior laminar edge of L4 across the superior laminar edge of L5 completing a decompression. On a final efforts that decompressing into the right inferior aspect of the decompression on the superior lamina edge of L5, what appears to be a small amount of CSF leakage indicating a incidental durotomy was noted. Actual visualization of the leak was not seen as it appeared to be under the superior laminar edge of L5 on the right side, no exposure to nerve roots was noted. Due to the lack of visualization of any actual hole in the dura, I elected to place DuraGen in this region followed by the DuraSeal gel. Upon placement of the DuraGen, Valsalva was attempted and no additional leakage was noted, as stated I then applied the DuraSeal gel. The operative site was then closed after placement of antibiotic powder, and 2 layers of 0 Vicryl sutures,, an additional layer of 2-0 Vicryl sutures and then pearl for the skin off the sterile dressing. Patient tolerated procedure well was taken recovery room satisfactory condition. I attest to the content of the Intraoperative Record and any orders documented therein. Any exceptions are noted below.
--- NOTE | 2025-04-15 08:35 | Orthopedic Progress Note ---
Date of Service April 15, 2025 Assessment & Plan (1) Spinal stenosis of lumbar region with neurogenic claudication: * Continue Current Treatment * Disposition: TBD * New onset fever, will obtain CXR and UA * Empiric Ancef q8 * Strict bedrest until Saturday * Must remain flat-lying at all times. May logroll to reposition * Daily dressing change with surgical team * No PT/OT at this time * Continue to monitor for ABLA * Pain control * Office/hospital f/u 2 weeks for progress check and staple/suture removal Patient seen and examined, incision with minimal drainage present, no findings to suggest an infectious process. Will begin workup for fever, hospitalist evaluation. Subjective Active Problems: S/p L4-S1 laminectomy, dural tear POD 2 84 y/o male s/p L4-S1 laminectomy with dural tear. Some increased back pain overnight. Remains compliant with flat-lying. New onset fever earlier this morning. Denies chest pain/SOB, nausea/vomiting. Otherwise no complaints. Review of Systems All systems reviewed & are unremarkable except as noted in HPI & below. Physical Exam * Musculoskeletal: Surgical dressing with scant bloody drainage, no evidence of CSF. No clear drainage noted. Lumbar spine region without obvious deformity or overlying skin changes. Minimal tenderness of surgical region, otherwise no tenderness b/l buttock or LE. Lumbar flexion/extension and rotation ROM with minimal pain. AROM b/l hip flexion, knee flexion/extension, ankle flexion/extension intact. Sensation intact plantar/dorsal foot. Brisk capillary refill. Results & Data Results & Data Laboratory Results . Diagnostic Findings . PG Care Time/CCT Total # of Minutes Spent Total Time Spent with Patient: Total time spent is greater than 50% in coordination of care (as documented) at patient's floor/unit and/or counseling patient: Coding Level of Care Code 88501 Post Operative Follow-Up Diagnoses Spinal stenosis of lumbar region with neurogenic claudication M48.062
[2025-04-15] MEDS: ENOXAPARIN INJ 40 MG/0.4 ML SYR SQ SCH (09:34)
[2025-04-15 09:51] LABS: Appearance Urine Clear (Clear); Bacteria Urine Automated None Seen (None Seen); Epithelial Cell Urine Auto 0-2 /hpf (0-2); Glucose Urine UA Negative (Negative); RBC Urine Automated 0-2 /hpf (0-2); WBC Urine Automated 0-5 /hpf (0-5)
[2025-04-15] MEDS: CLOPIDOGREL BISULFATE 75 MG TAB PO SCH (10:01)
[2025-04-15] MEDS: LOSARTAN POTASSIUM 50 MG TAB PO SCH (10:01)
--- NOTE | 2025-04-15 10:59 | XRay Report ---
XR chest 1V portable CLINICAL HISTORY: fever COMPARISON STUDY: 09/23/2024 FINDINGS: Heart size and pulmonary vasculature are normal. No consolidation or pleural effusion. No p neumothorax. IMPRESSION: No pneumonia seen. ACT 112: Negative or not required by law. Electronically signed by: Channing Das M.D. 04/15/2025 10:57 AM
--- NOTE | 2025-04-15 14:05 | Hospitalist Progress Note ---
"Date of Service April 15, 2025 Assessment & Plan (1) Fever: (2) Spinal stenosis of lumbar region with neurogenic claudication: (3) Current chronic use of systemic steroids: (4) Hypertension: (5) Hyperlipidemia: Plan Xavier is a 84M with a PMHx of anemia, carotid artery stenosis, PAD, HTN, HLD, asthma and gout who was admitted for elective spine surgery with Dr. Perez. #S/p Lumbar spine surgery - L4-L5, L5-S1 laminectomy with Dr. Perez 04/13, with dural tear had to remain flat until 04/15 Pain control | abx | dvt proh | dispo planning - per primary team EBL 30 - with baseline anemia, hemoglobin stable at 10.9 Continue home iron supplementation #Postoperative fever -UA and CXR unrevealing. He is mildly hypoxic sats low 90s with mild cough, could have atelectasis or aspiration pneumonitis -ordered CBC diff and BMP, procal which are unrevealing. Procal 0.11 not consistent with pneumonia. -hx gout but not in flare -chronic prednisone noted -will repeat procal in AM -if spiking again check resp Biofire -discussed with Dr. Perez #Chronic steroid use Has been on prednisone 10mg daily for > 1 year. Patient unaware why but based on PCP documentation seems to be for lumbar stenosis Continue this admission, wean off in outpatient setting monitor BP but at this time no indication for stress dose steroids #HTN Continue amlodipine and losartan #Coronary artery stenosis Aspirin continued plavix held - resume when okay by surgery #HLD - continue statin Admission and Anticipated Discharge Date Admission Date: April 14, 2025 Subjective Fever early this AM Slight cough and noticed mucus on his tongue No shortness of breath, no CP, no sore throat or nasal congestion, no choking episodes No N/V/D or abd pain, lots of gas yesterday Has hx gout but no flare in years, no joint pain or skin issues Has holguin no dysuria Physical Exam 2 Physical Exam: Last 24h vitals reviewed GEN: no acute distress, lying flat in bed HEENT: pupils equal, sclerae anicteric, moist MM RESP: normal WOB, CTAB CV: reg no mrg ABD: soft/nt/nd +BT : + holguin SKIN: warm and dry, no generalized rashes EXT: no inflammation of feet or ankles, no wounds, warm/wp no edema NEURO: AOx person, place, and situation. Face symmetric, speech normal, moves 4 ext spontaneously and equally Results & Data Results & Data Vital Signs (Past 12 Hours) Vital Signs Temp Pulse Resp BP Pulse Ox O2 Del Method 04/15/25 11:49 37.2 C 94 H 18 123/67 90 Room Air 04/15/25 08:13 91 Room Air 04/15/25 07:38 38.5 C H 99 H 18 153/73 H 89 L Room Air Laboratory Results UA normal Yesterday labs reviewed W 11 (on steroids) Today labs unremarkable as well. Cr increased but still within his baseline range 04/15/25 14:24 04/15/25 14:24 Personally reviewed CXR film and it is clear PG Care Time/CCT Total # of Minutes Spent Total Time Spent with Patient: Total time spent is greater than 50% in coordination of care (as documented) at patient's floor/unit and/or counseling patient: Coding Level of Care Code 35738 SUB INP/OBS CARE 3/50MIN Diagnoses Fever R50.9 Spinal stenosis of lumbar region with neurogenic claudication M48.062 Current chronic use of systemic steroids Z79.52 Hypertension I10 Hyperlipidemia E78.5"
[2025-04-15 14:47] LABS: Hematocrit (blood only) 37.5 % (42.0-52.0); Hemoglobin 12.4 g/dl (14.0-18.0); Immature Granulocytes # (auto) 0.12 K/uL (0.01-0.20); Immature Granulocytes % (auto) 1.0 %; Mean Corpuscular Hemoglobin 29.9 pg (25.0-34.0); Mean Corpuscular Volume 90.4 fL (80.0-100.0); Platelet Count 199 K/uL (130-400); RDW Standard Deviation 49.6 fL (36.4-46.3); Red Blood Count 4.15 M/uL (4.70-6.10); White Blood Count 11.70 K/ul (4.8-10.8)
[2025-04-15 15:02] LABS: Anion Gap 7.0 (3-11); Blood Urea Nitrogen 20.0 mg/dl (6-23); Calcium 9.1 mg/dl (8.6-10.3); Carbon Dioxide 27.0 mmol/L (21-32); Chloride 98.0 mmol/L (98-107); Creatinine Clr Calc Pharmacy 34.8 ml/min; Glucose 188.0 mg/dl (70-99(Fasting)); Potassium 4.2 mmol/L (3.5-5.1); Sodium 132.0 mmol/L (136-145)
[2025-04-15 19:32] LABS: Chlamydia pneumoniae PCR Not Detected (NotDetected); Coronavirus 229E PCR Not Detected (NotDetected); Coronavirus CoV-2 (COVID19)PCR Not Detected (NotDetected); Coronavirus HKU1 PCR Not Detected (NotDetected); Coronavirus NL63 PCR Not Detected (NotDetected); Coronavirus OC43PCR Not Detected (NotDetected); Human Metapneumovirus PCR Not Detected (NotDetected); Parainfluenza Virus 1 PCR Not Detected (NotDetected); Parainfluenza Virus 2 PCR Not Detected (NotDetected); Parainfluenza Virus 3 PCR Not Detected (NotDetected); Parainfluenza Virus 4 PCR Not Detected (NotDetected); Respiratory Syncytial VirusPCR Not Detected (NotDetected); Rhinovirus/Enterovirus PCR Not Detected (NotDetected)
[2025-04-15] MEDS: ACETAMINOPHEN 500 MG TAB PO PRN (20:17)
[2025-04-16 07:54] LABS: Hematocrit (blood only) 35.3 % (42.0-52.0); Hemoglobin 11.4 g/dl (14.0-18.0); Mean Corpuscular Hemoglobin 29.5 pg (25.0-34.0); Mean Corpuscular Volume 91.2 fL (80.0-100.0); Platelet Count 206 K/uL (130-400); RDW Standard Deviation 49.1 fL (36.4-46.3); Red Blood Count 3.87 M/uL (4.70-6.10); White Blood Count 10.83 K/ul (4.8-10.8)
--- NOTE | 2025-04-16 08:14 | Orthopedic Progress Note ---
Date of Service April 16, 2025 Assessment & Plan (1) Spinal stenosis of lumbar region with neurogenic claudication: * Continue Current Treatment * Disposition: TBD * Ongoing fever work-up, CXR and UA unrevealing * Biggest concern would be aspiration even given supine positioning x2 days * Empiric Ceftriaxone, will likely send home on oral abx * D/c Gore * Begin ambulation * Progress to chair this morning with PT/OT later on today * Dressing removed, may leave open to air * No PT/OT at this time * Continue to monitor for ABLA * Pain control * Office/hospital f/u 2 weeks for progress check and staple/suture removal * * Patient seen and examined, operative site completely dry, no drainage noted and no findings to suggest an infectious process. Discussed with family and patient, will mobilize today with physical therapy, review with hospitalist as to any of the other potential sources of temperature elevations. Our plan will be to discharge once cleared through physical therapy and no additional workup needed, will send home with some antibiotics and appropriate pain medication and follow-up in the next 1 to 2 weeks. Subjective Active Problems: S/p L4-S1 laminectomy, dural tear POD 3 84 y/o male s/p L4-S1 laminectomy with dural tear. Remains compliant with flat- lying. Ongoing fever work-up, CXR and UA unrevealing. Denies chest pain/SOB, nausea/vomiting. Otherwise no complaints. Review of Systems All systems reviewed & are unremarkable except as noted in HPI & below. Physical Exam * Musculoskeletal: Surgical dressing CDI, no evidence of CSF. No clear drainage noted. Lumbar spine region without obvious deformity or overlying skin changes. Minimal tenderness of surgical region, otherwise no tenderness b/l buttock or LE. Lumbar flexion/extension and rotation ROM with minimal pain. AROM b/l hip flexion, knee flexion/extension, ankle flexion/extension intact. Sensation intact plantar/dorsal foot. Brisk capillary refill. Results & Data Results & Data Laboratory Results . 04/16/25 04/15/25 04/15/25 06:59 18:30 14:24 WBC 10.83 H 11.70 H RBC 3.87 L 4.15 L Hgb 11.4 L 12.4 L Hct 35.3 L 37.5 L MCV 91.2 90.4 MCH 29.5 29.9 MCHC 32.3 33.1 RDW Std Deviation 49.1 H 49.6 H RDW Coeff of Hieu 14.6 H 15.0 H Plt Count 206 199 MPV 9.6 9.2 L Immature Gran % (Auto) 1.0 Neut % (Auto) 85.1 Lymph % (Auto) 7.8 [place] % (Auto) 5.8 Eos % (Auto) 0.1 Baso % (Auto) 0.2 Neut # (Auto) 9.96 H Lymph # (Auto) 0.91 L [place] # (Auto) 0.68 H Eos # (Auto) 0.01 Baso # (Auto) 0.02 Immature Gran # (Auto) 0.12 Sodium 132 L Potassium 4.2 Chloride 98 Carbon Dioxide 27 Anion Gap 7 BUN 20 Creatinine 1.45 H Est Cr Clr Drug Dosing 34.8 eGFR 47.22 BUN/Creatinine Ratio 13.8 Glucose 188 H Calcium 9.1 Procalcitonin 0.11 Urine Color Urine Appearance Urine pH Ur Specific [place] Urine Protein Urine Glucose (UA) Urine Ketones Urine Blood Urine Nitrite Urine Bilirubin Urine Urobilinogen Ur Leukocyte Esterase Urine WBC (Auto) Urine RBC (Auto) U Hyaline Cast (Auto) U Epithel Cells (Auto) Urine Bacteria (Auto) Urine Comment Adenovirus (PCR) Not Detected B. pertussis DNA (PCR) Not Detected B.parapertussis DNA PCR Not Detected C. pneumoniae DNA (PCR) Not Detected Coronavirus OC43 (PCR) Not Detected Coronavirus HKU1 (PCR) Not Detected Coronavirus 229E (PCR) Not Detected SARS-CoV-2 (PCR) Not Detected Coronavirus NL63 (PCR) Not Detected Human Metapneumovir PCR Not Detected Influenza Type A (PCR) Not Detected Influenza Type B (PCR) Not Detected M. pneumoniae (PCR) Not Detected Parainfluenza 1 (PCR) Not Detected Parainfluenza 2 (PCR) Not Detected Parainfluenza 3 (PCR) Not Detected Parainfluenza 4 (PCR) Not Detected RSV (PCR) Not Detected Entero/Rhino (PCR) Not Detected 04/15/25 09:04 WBC RBC Hgb Hct MCV MCH MCHC RDW Std Deviation RDW Coeff of Hieu Plt Count MPV Immature Gran % (Auto) Neut % (Auto) Lymph % (Auto) [place] % (Auto) Eos % (Auto) Baso % (Auto) Neut # (Auto) Lymph # (Auto) [place] # (Auto) Eos # (Auto) Baso # (Auto) Immature Gran # (Auto) Sodium Potassium Chloride Carbon Dioxide Anion Gap BUN Creatinine Est Cr Clr Drug Dosing eGFR BUN/Creatinine Ratio Glucose Calcium Procalcitonin Urine Color Yellow Urine Appearance Clear Urine pH 5.5 Ur Specific [place] 1.014 Urine Protein 1+ H Urine Glucose (UA) Negative Urine Ketones 1+ H Urine Blood 1+ H Urine Nitrite Negative Urine Bilirubin Negative Urine Urobilinogen Negative Ur Leukocyte Esterase Negative Urine WBC (Auto) 0-5 Urine RBC (Auto) 0-2 U Hyaline Cast (Auto) 6-10 H U Epithel Cells (Auto) 0-2 Urine Bacteria (Auto) None Seen Urine Comment Adenovirus (PCR) B. pertussis DNA (PCR) B.parapertussis DNA PCR C. pneumoniae DNA (PCR) Coronavirus OC43 (PCR) Coronavirus HKU1 (PCR) Coronavirus 229E (PCR) SARS-CoV-2 (PCR) Coronavirus NL63 (PCR) Human Metapneumovir PCR Influenza Type A (PCR) Influenza Type B (PCR) M. pneumoniae (PCR) Parainfluenza 1 (PCR) Parainfluenza 2 (PCR) Parainfluenza 3 (PCR) Parainfluenza 4 (PCR) RSV (PCR) Entero/Rhino (PCR) Diagnostic Findings . PG Care Time/CCT Total # of Minutes Spent Total Time Spent with Patient: Total time spent is greater than 50% in coordination of care (as documented) at patient's floor/unit and/or counseling patient: Coding Level of Care Code 84726 Post Operative Follow-Up Diagnoses Spinal stenosis of lumbar region with neurogenic claudication M48.062
[2025-04-16] MEDS: NYSTATIN SUSP 500,000 U/5 ML UDC PO SCH (08:15)
[2025-04-16 08:19] LABS: Anion Gap 9 (3-11); Blood Urea Nitrogen 21 mg/dl (6-23); Calcium 8.7 mg/dl (8.6-10.3); Carbon Dioxide 27 mmol/L (21-32); Chloride 100 mmol/L (98-107); Creatinine Clr Calc Pharmacy 39.4 ml/min; Glucose 81 mg/dl (70-99(Fasting)); Potassium 3.7 mmol/L (3.5-5.1); Sodium 136 mmol/L (136-145)
[2025-04-16 08:20] LABS: Alanine Aminotransferase < 3 U/L (7-52); Albumin Globulin Ratio 0.9 (0.9-2); Albumin Level 3.0 gm/dl (3.4-5.0); Alkaline Phosphatase 66 U/L (34-104); Bilirubin,Total 0.5 mg/dl (0.2-1.0); Globulin 3.2 gm/dl (2.5-4.0); Total Protein 6.2 gm/dl (6.0-8.3)
[2025-04-16] MEDS: cefTRIAXone SODIUM 1,000 MG/50 ML BAG IV SCH (09:49)
--- NOTE | 2025-04-16 10:24 | XRay Report ---
XR chest 1V portable CLINICAL HISTORY: cough, fever COMPARISON STUDY: 04/15/2025 FINDINGS: Heart size and pulmonary vasculature are normal. No consolidation or pleural effusion. No p neumothorax. IMPRESSION: No acute findings. ACT 112: Negative or not required by law. Electronically signed by: Channing Das M.D. 04/16/2025 10:23 AM
--- NOTE | 2025-04-16 11:43 | Hospitalist Progress Note ---
Date of Service April 16, 2025 Assessment & Plan (1) Fever: (2) Spinal stenosis of lumbar region with neurogenic claudication: (3) Current chronic use of systemic steroids: (4) Hypertension: (5) Hyperlipidemia: Plan Xavier is a 84M with a PMHx of anemia, carotid artery stenosis, PAD, HTN, HLD, asthma and gout who was admitted for elective spine surgery with Dr. Perez. He has had postoperative fevers # Postoperative fever Experienced fevers, most recent at 7 PM last night, less severe than previous episodes. Reports slight improvement today. No mouth pain, tongue pain, painful swallowing, or mouth ulcers. Mild shortness of breath and cough, no oxygen required. No abdominal pain, nausea, or vomiting, but has anorexia. No bowel movement yet. Low back pain well managed. Slow to get moving, permitted to get up and out of bed today. Sat on commode but declined chair. notes he used incentive spirometer initially post-surgery but not recently. Diagnostic plan: Differential diagnosis for fever includes aspiration pneumonitis or atelectasis, pneumonia to be ruled out. Repeat chest x-ray and pending procalcitonin results. Back incision looks pristine. Treatment plan: Advised to increase incentive spirometer use, assisting. Strongly encouraged to enhance mobility by sitting in chair for meals and taking at least one walk today. Gore catheter to be discontinued, monitor urinary retention via bladder scan. If chest x-ray or procalcitonin results suggest pneumonia, initiate appropriate antibiotics. -CXR still clear, hypoxia improved, serial procal negative, resp biofire negative - pneumonia unlikely. continue to follow off antibiotics #Chronic steroid use Has been on prednisone 10mg daily for > 1 year. Patient unaware why but based on PCP documentation seems to be for lumbar stenosis Continue this admission, wean off in outpatient setting monitor BP but at this time no indication for stress dose steroids #HTN Continue amlodipine and losartan #Coronary artery stenosis Aspirin continued plavix held - resume when okay by surgery #HLD - continue statin DVT ppx - per surgeon, SCDs Admission and Anticipated Discharge Date Admission Date: April 14, 2025 Subjective 51-year-old male presents for postoperative follow-up from lumbar surgery. Experienced fevers, most recent at 7 PM last night, less severe than previous episode. Reports slight improvement today. No mouth pain, tongue pain, painful swallowing, or mouth ulcers. Mild shortness of breath and cough, no oxygen requ ired. No abdominal pain, nausea, or vomiting, but has anorexia. No bowel movement yet. Low back pain well managed. Slow to get moving, permitted to get up and out of bed today. Sat on commode but declined chair. notes he used incentive spirometer initially post-surgery but not recently. Physical Exam Physical Exam: General Appearance: Awake, slightly sleepy, oriented to place and situation. Vital signs: Reviewed past 24h vital signs in EMR, unremarkable. HEENT: leukoplakia on tongue, no ulcerations, no thrush Respiratory: Clear anteriorly with bibasilar crackles 1/3 up. low air movement, poor inspiratory effort. Cardiovascular: Regular rhythm with PVCs. No murmur. Gastrointestinal: Soft, nontender, nondistended. Bowel sounds present. Extremities: Lower extremities warm and well perfused. Low back incision is well opposed, no erythema or drainage, looks great Skin: Warm and dry, no rash. Neurological: Normal. Psychiatric: Normal. Results & Data Results & Data Vital Signs (Past 12 Hours) Vital Signs Temp Pulse Resp BP Pulse Ox O2 Del Method 04/16/25 07:14 37.2 C 80 18 152/61 H 94 Room Air 04/16/25 06:00 37.3 C 04/16/25 05:58 37.3 C 04/16/25 02:42 36.8 C 76 18 137/68 93 Room Air Laboratory Results - Labs: - WBC: 12 - Hgb: 10 - Na: 136 - K: 3.7 - Cr: 1.28 - LFTs: Normal - Respiratory bio fire (04/15/2025): Negative chest x-ray was repeated today, I personally reviewed the film it is clear PG Care Time/CCT Total # of Minutes Spent Total Time Spent with Patient: Total time spent is greater than 50% in coordination of care (as documented) at patient's floor/unit and/or counseling patient: Coding Level of Care Code 27902 SUB INP/OBS CARE 2/35MIN Diagnoses Fever R50.9 Spinal stenosis of lumbar region with neurogenic claudication M48.062 Current chronic use of systemic steroids Z79.52 Hypertension I10 Hyperlipidemia E78.5
[2025-04-16] MEDS: ACETAMINOPHEN 325 MG TAB PO SCH (12:58)
[2025-04-16 13:01] LABS: Base Excess VBG 1.2 mEq/L; HCO3 VBG 26 mmol/L; Oxygen Saturation VBG < 60.0 %; PCO2 VBG 41 mmHg (38-50); PO2 VBG 30 mmHg; pH VBG 7.41 (7.36-7.41)
--- NOTE | 2025-04-16 15:08 | Communication Note ---
Date of Service: April 16, 2025 Presented to patient's room this afternoon for repeat rounding and possible discharge assessment. At time of exam patient sitting upright in chair, however per family has been quite drowsy and disoriented throughout the later part of the morning and into the afternoon. When asked, patient unable to accurately report location, reason for being in the hospital, month or time. Slow speech. Patient was assisted back to bed, heavy assist with nursing staff. 95. Vitals obtained, BP 135/78, O2 sat 95 on room air. POC glucose 131. Patient has remai airam afebrile throughout the day, fever workup unremarkable at this time. Labs obtained earlier this morning unremarkable for electrolyte abnormality. On exam patient with symmetrical face, slow movement of the left side of the body however with prompting strength 5/5 when compared bilaterally. CTH ordered, pending. Hospitalist team and Dr. Perez updated.
--- NOTE | 2025-04-16 15:10 | CT Scan Report ---
CT head/brain wo con CLINICAL HISTORY: acute AMS. TECHNIQUE: Multiple axial CT images of the head were obtained without contrast. A dose lowering tech nique was utilized adhering to the principles of ALARA. 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 There is stable mild promi nence of the ventricles out of proportion to the sulci, cerebral atrophy versus mild normal pressure hydrocephalus. Stable moderate chronic small vessel ischemic change. No intracranial hemorrhage seen. No mass effect or midline shift. Stable mild globus pallidus calcifications. Visualized paranasal si nuses and mastoid air cells are clear. No skull fracture seen. IMPRESSION: No acute findings. Otherwise as described. ACT 112: Negative or not required by law. The above report was generated using voice recognition software. It may contain grammatical, syntax o r spelling errors. Electronically signed by: Channing Das M.D. 04/16/2025 3:08 PM
[2025-04-17] MEDS: TAMSULOSIN HCL 0.4 MG CAP PO SCH (10:19)
--- NOTE | 2025-04-17 11:13 | Orthopedic Progress Note ---
Date of Service April 17, 2025 Subjective Patient seen and examined, alert and awake and in chair, notes limited incisional symptoms. Due to lack of voiding Gore had to be reinserted. Exam of incision site is unremarkable no drainage noted, no findings to suggest infectious process. Impression: Postop day 4 from lumbar decompression at L4-5 and L5-S1, now mobilized. Discussed with Dr. Burks from medical team, will continue with physical therapy and mobilization, hopefully discontinuation of Gore at some point, the patient did have a bowel movement. He appears to be alert awake and talking to family members appropriately. CT scan of the head unremarkable and no new findings, afebrile at this time. Review of Systems All systems reviewed & are unremarkable except as noted in HPI & below. Physical Exam . Results & Data Results & Data Laboratory Results . Diagnostic Findings . PG Care Time/CCT Total # of Minutes Spent Total Time Spent with Patient: Total time spent is greater than 50% in coordination of care (as documented) at patient's floor/unit and/or counseling patient: Coding Level of Care Code 20043 Post Operative Follow-Up
--- NOTE | 2025-04-17 18:24 | Hospitalist Progress Note ---
Date of Service April 17, 2025 Assessment & Plan (1) Fever: (2) Spinal stenosis of lumbar region with neurogenic claudication: (3) Current chronic use of systemic steroids: (4) Hypertension: (5) Hyperlipidemia: [place] is a 84M with a PMHx of anemia, carotid artery stenosis, PAD, HTN, HLD, asthma and gout who was admitted for elective spine surgery with Dr. Perez. He has had postoperative fevers # Postoperative fever Probably was a mild aspiration pneumonitis plus atelectasis -CXR still clear, hypoxia improved, serial procal negative, resp biofire negative - pneumonia unlikely. -has been on ceftriaxone, complete 5 day course of IV/po # Acute toxic metabolic encephalopathy - prominent 04/16 -improved/resolved with time, new roommate, holding sedating meds deanna gabapentin # Acute urinary retention - required holguin replacement -start tamsulosin, voiding trial in 72h #Chronic steroid use Has been on prednisone 10mg daily for > 1 year. Patient unaware why but based on PCP documentation seems to be for lumbar stenosis Continue this admission, wean off in outpatient setting monitor BP but at this time no indication for stress dose steroids #HTN Continue amlodipine and losartan #Coronary artery stenosis Aspirin continued plavix held - resume when okay by surgery #HLD - continue statin DVT ppx - per surgeon, SCDs PT/OT rec rehab stay Updated his at bedside Discussed plan of care with Dr. Perez Admission and Anticipated Discharge Date Admission Date: April 14, 2025 Subjective No further fevers No longer somnolent, mental status much better Still poor appetite Having BMs now Low back sore, rad down RLE but controlled on current meds Physical Exam Physical Exam: General Appearance: Awake, slightly sleepy, oriented to place and situation. Vital signs: Reviewed past 24h vital signs in EMR, unremarkable. HEENT: mmm Respiratory: does not move much air unless reminded. CTAB except mild R base crackles Cardiovascular: RRR syst/diastolic M LUSB Gastrointestinal: Soft, nontender, nondistended. Bowel sounds present. Extremities: Lower extremities warm and well perfused. Low back incision not examined today Skin: Warm and dry, no rash. Neurological: Normal. AOx4 today, maewx4 Psychiatric: Normal. Results & Data Results & Data Vital Signs (Past 12 Hours) Vital Signs Temp Pulse Resp BP BP Pulse Ox O2 Del Method 04/17/25 17:50 94 H 17 96 Room Air 04/17/25 15:05 37.3 C 103 H 18 105/72 94 Room Air 04/17/25 10:02 36.7 C 90 16 93 Room Air 04/17/25 09:02 71 119/72 PG Care Time/CCT Total # of Minutes Spent Total Time Spent with Patient: Total time spent is greater than 50% in coordination of care (as documented) at patient's floor/unit and/or counseling patient: Coding Level of Care Code 78108 SUB INP/OBS CARE 2/35MIN Diagnoses Fever R50.9 Spinal stenosis of lumbar region with neurogenic claudication M48.062 Current chronic use of systemic steroids Z79.52 Hypertension I10 Hyperlipidemia E78.5
[2025-04-17 22:57] VITALS: RESP 16
--- NOTE | 2025-04-18 11:18 | Orthopedic Progress Note ---
Date of Service April 18, 2025 Subjective Patient seen in room, notes no lower extremity symptoms. Has been ambulating with physical therapy and independent. Incision site unremarkable. Impression/plan: Discharge home if cleared by PT/voiding trial and hospitalist, otherwise continue with PT and voiding trial. Review of Systems All systems reviewed & are unremarkable except as noted in HPI & below. Physical Exam . Results & Data Results & Data Laboratory Results . Diagnostic Findings . PG Care Time/CCT Total # of Minutes Spent Total Time Spent with Patient: Total time spent is greater than 50% in coordination of care (as documented) at patient's floor/unit and/or counseling patient: Coding Level of Care Code 53301 SUB INP/OBS CARE 2MIN
--- NOTE | 2025-04-18 17:18 | Hospitalist Progress Note ---
Date of Service April 18, 2025 Assessment & Plan (1) Fever: (2) Spinal stenosis of lumbar region with neurogenic claudication: (3) Current chronic use of systemic steroids: (4) Hypertension: (5) Hyperlipidemia: Plan Xavier is a 84M with a PMHx of anemia, carotid artery stenosis, PAD, HTN, HLD, asthma and gout who was admitted for elective spine surgery with Dr. Perez. He has had postoperative fevers # Postoperative fever Probably was a mild aspiration pneumonitis plus atelectasis -CXR still clear, hypoxia improved, serial procal negative, resp biofire negative - pneumonia unlikely. -has been on ceftriaxone, complete 5 day course of IV/po # Acute toxic metabolic encephalopathy - prominent 04/16 - resolved. Would not continue gabapentin on discharge # Acute urinary retention - required holguin replacement - continue tamsulosin for now though probably does not need it prescribed discharge passed voiding trial today, Holguin removed #Chronic steroid use Has been on prednisone 10mg daily for > 1 year. Patient unaware why but based on PCP documentation seems to be for lumbar stenosis Continue this admission, wean off in outpatient setting #HTN Continue amlodipine and losartan #Coronary artery stenosis Aspirin continued plavix resumed postoperatively #HLD - continue statin DVT ppx - per surgeon, SCDs PT/OT did much better today potentially can go home tomorrow with home health and family assistance for negotiating steps and in and out of vehicles Updated his at bedside 04/18 Discussed plan of care with Dr. Perez today Admission and Anticipated Discharge Date Admission Date: April 14, 2025 Subjective Martínez doing much better no fevers but days, no dyspnea or hypoxia. Appetite improved having BMs and Holguin was removed successfully today. Did better with PT, might be able to go home with home health will need assistance of his family for stairs and getting in and out of vehicles which his said extended family and neighbors can help with low back pain is incisional, moderate controlled on current medications Physical Exam Physical Exam: General Appearance: awake and alert looks much better Vital signs: Reviewed past 24h vital signs in EMR, unremarkable. HEENT: mmm Respiratory: clear to auscultation bilaterally air movement improved Cardiovascular: RRR syst/diastolic M LUSB Gastrointestinal: Soft, nontender, nondistended. Bowel sounds present. Extremities: Lower extremities warm and well perfused. Low back incision well apposed no erythema no drainage Skin: Warm and dry, no rash. Neurological: Normal. AOx4 , maewx4 Psychiatric: Normal. Results & Data Results & Data Vital Signs (Past 12 Hours) Vital Signs Temp Pulse Resp BP BP Pulse Ox O2 Del Method 04/18/25 15:18 36.7 C 88 16 119/78 94 Room Air 04/18/25 08:32 67 120/60 04/18/25 07:22 36.9 C 75 16 133/63 94 Room Air PG Care Time/CCT Total # of Minutes Spent Total Time Spent with Patient: Total time spent is greater than 50% in coordination of care (as documented) at patient's floor/unit and/or counseling patient: Coding Level of Care Code 08408 SUB INP/OBS CARE 2/35MIN Diagnoses Fever R50.9 Spinal stenosis of lumbar region with neurogenic claudication M48.062 Current chronic use of systemic steroids Z79.52 Hypertension I10 Hyperlipidemia E78.5
[2025-04-19 07:52] VITALS: BP 129/73; PULSE 71; TEMP 97.7; O2SAT 98
--- NOTE | 2025-04-21 10:32 | Discharge Summary ---
Date of Service April 21, 2025 Admission HPI (Per Admitting) Spinal stenosis Admission Exam (Per Admitting) . Principal Diagnosis Same as "Discharge Diagnosis" noted below under Discharge Instructions. Discharge Exam . Discharge Data Consultations 04/13/25 14:51 Consult Hospitalist Routine Procedures Performed Operation Date: 04/13/25 10:20 Actual Procedures p L4-L5, L5-S1 Laminectomy(Not Applicable) - Seb Perez MD Ordered Studies 04/13/25 10:20 FL spine 1V any level Routine 04/16/25 14:20 CT head/brain wo con Stat PG Care Time/CCT Total # of Minutes Spent Total Time Spent with Patient: Total time spent is greater than 50% in coordination of care (as documented) at patient's floor/unit and/or counseling patient: Discharge Plan Discharge Items Patient Disposition: Home - Self-Care Reason For Visit: Disc Degeneration, Lumbar, Degeneration of Lumbosa Discharge Diagnosis: Spinal stenosis Activity: Per Instructions section Lifting: No more than 5 pounds Bathing: No limitations Exercise/Sports: Gradually increase as tolerated Driving/Machine Use: Resume 3 days after discharge Weightbearing: Full weightbearing Non-emergency contact: Surgeon Call non-emergency contact if: your symptoms worsen Follow-up/Referrals: Jayson Valenzuela MD [Primary Care Provider] - 04/26/25 2:15 pm Diet: Regular Addtl Attending Provider Instructions: Follow-up in 2 weeks Pending Studies at Discharge: No Stand-Alone Forms: [facility] QRcao, Smoking Cessation Medications and DC Order Prescriptions: Continued losartan 100 mg tablet 100 mg PO QAM Qty: 90 3RF rosuvastatin 20 mg tablet 20 mg PO QAM Qty: 90 3RF allopurinol 100 mg tablet 100 mg PO BID Qty: 180 3RF gabapentin 100 mg capsule 200 mg PO TID Qty: 300 5RF celecoxib 200 mg capsule 200 mg PO BID Qty: 60 11RF clopidogrel 75 mg tablet 75 mg PO QAM Qty: 30 3RF prednisone 10 mg tablet 10 mg PO QAM Qty: 90 3RF aspirin [Adult Aspirin Regimen] 81 mg tablet,delayed release (DR/EC) 81 mg PO QAM epinephrine 0.3 mg/0.3 mL auto-injector 0.3 mg IM Q10M PRN (Reason: BEE STINGS) Qty: 2 0RF amlodipine 10 mg tablet 10 mg PO QAM Qty: 90 3RF PreserVision AREDS-2 [id number] Capsule 2 tab PO QAM albuterol sulfate 90 mcg/actuation HFA aerosol inhaler 1 inh inhalation UD PRN (Reason: asthma) ferrous sulfate 325 mg (65 mg iron) Tablet 325 mg PO 3XWK Patient Comments: mon, wed and fri vitamin X30-uclan acid 2,500-400 mcg Tablet,Disintegrating 1 tab PO DAILY Patient Comments: unsure strength Discharge Orders: Discharge Order (Routine); Ordered 04/19/25 Ordered By: Dru Carver/Other Patient Handouts: Laminectomy Laminotomy Recovery Admission Data Admit Date/Time: 04/14/25 09:03 Attending Provider: Seb Perez Admit Provider: Seb Perez Primary Care Provider: Jayson Valenzuela Other Providers: Silvia Burks Thomas E. Other Interventions: Discharge Summary Assessment (RN) Last Done: 04/19/25 13:56
== END 2025-04-19 15:45 | disposition home or self-care (01) | DRG 518 ==
LOC: ASU 08:57 → 3W 08:57 → 3N 04-16 18:37